=== PATIENT | female | born 1935 | race African-American/Black ===

== ENCOUNTER 2016-12-10 20:10 | Inpatient (IN) ==
[2016-12-10] MEDS ORDERED: SODIUM CHLORIDE 0.9% 1,000 ML IV STA (20:39)
[2016-12-10] MEDS ORDERED: VANCOMYCIN INJ 1,000 MG in SODIUM CHLORIDE 0.9% 250 ML IV STA (20:39)
[2016-12-10] MEDS ORDERED: INSULIN REGULAR 100 UNIT/ML IV STA (20:44)
[2016-12-10] MEDS ORDERED: INSULIN REGULAR 100 UNIT/ML SUBCUT STA (20:44)
[2016-12-10] MEDS ORDERED: SODIUM CHLORIDE 0.9% 2,000 ML IV STA (20:45)
[2016-12-10 20:52] LABS: Basophils % 0.2 % (0.0-0.8); Eosinophils % 0.2 % (0.00-10.9); Hematocrit 41.8 VOL% (35.7-47.0); Hemoglobin 13.9 GM/DL (12.0-16.0); Immature Granulocytes % 0.9 %; Immature Granulocytes Absolute 0.14 #; Lymphocytes # 1.2 10*3/uL (1.4-4.0); Lymphocytes % 7.5 % (21.3-54.2); Mean Corpuscular HGB Conc 33.3 GM/DL (32-36); Mean Corpuscular Hemoglobin 31 PG (27-34); Mean Corpuscular Volume 92.5 FL (87-102); Mean Platelet Volume 11.2 FL (9.6-12.0); Monocytes # 0.9 10*3/uL (0.11-0.8); Monocytes % 5.6 % (1.7-12.7); Neutrophils # 13.8 10*3/uL (1.4-7.4); Neutrophils % 85.6 % (38.7-73.9); Platelet Count 244 T/CUMM (130-400); Red Blood Count 4.52 MC/CUMM (3.8-5.5); Red Cell Distribution Width 13.6 % (9.3-17.3); White Blood Count 16.1 T/CUMM (4-12)
[2016-12-10] MEDS ORDERED: SODIUM CHLORIDE 0.9% 0 ML IV ONE (20:56)
[2016-12-10] MEDS ORDERED: VANCOMYCIN 1,000 MG VIAL ONE (20:56)
[2016-12-10 21:07] LABS: Calcium 9.5 MG/DL (8.5-10.1); Potassium 3.9 MMOL/L (3.5-5.1)
[2016-12-10] MEDS ORDERED: ONDANSETRON 4 MG/2 ML VIAL IV STA (21:10)
[2016-12-10] MEDS ORDERED: LEVOFLOXACIN INJ 750 MG in PREMIX 1 EACH IV STA (21:10)
[2016-12-10] MEDS ORDERED: KETOROLAC 30 MG/1 ML VIAL IV STA (21:10)
--- NOTE | 2016-12-10 21:16 | Emergency Department Note ---
Arrival - Arrival Chief Complaint: Fever Stated Complaint: fever ED Nursing Triage Note: Patient to ED via EMS with c/o fever and general malaise that "started at once" Patient has history of COMMERCIAL LEASING AGENT. Temp 101.8 upon arrival. Mode of Arrival: Stretcher Limitations: No Limitations Source: Patient Time Seen by Provider: 12/10/16 20:39 - History of Present Illness HPI Narrative: This 81-year-old black female presents approximately 2 hours after abrupt onset of chills, headache, nausea, chest pain, shortness of breath, and tremors while sitting on her front porch shucking corn. The patient had had an unremarkable day and had been very busy throughout her house today without any symptoms whatsoever. As of arrival here she still has some mild chest pain and nausea with the remainder of her symptoms having abated. However, also since arriving she has developed difficulties with motor strength in her right leg stating she cannot make it do what she wants it to. Patient is not medical distress currently but still appears quite sick and febrile at 101.8. Onset (ago): hour(s) (Patient presents approximately 2 hours post onset of symptoms) Date of Last Menstrual Period: [facility] Allergies/Adverse Reactions: Allergies Allergy/AdvReac Type Severity Reaction Status Date / Time Penicillins Allergy Unknown/Unable Verified 12/10/16 20:20 to obtain Review of System - Review of System 12 point system: reviewed and no additional remarkable complaints except as stated - Review of System Constitutional: Present: as per HPI Respiratory: Present: as per HPI Cardiovascular: Present: as per HPI Gastrointestinal: Present: as per HPI Musculoskeletal: Present: as per HPI Neurological: Present: as per HPI Medical,Surgical,& Family Hx - Medical History Cardio: History of: Hypertension Endocrine: History of: Diabetes Mellitus (NIDDM) Respiratory: History of: COPD - Social History Smoking Status: Never smoker Frequency of Alcohol Use: None Type of Drug Use: None Exam Physical Examination: GENERAL: Well developed, well nourished 81-year-old white female in no acute distress. HEENT: Normocephalic. No trauma. Moist mucous membranes. EOMI. PERRLA. Disconjugate gaze ENT NML NECK: Supple. No adenopathy. CARDIAC: Regular. No murmurs. Heart rate 120 CHEST: Clear to auscultation. No respiratory distress. O2 sat 98% ABDOMEN: Soft. Nontender. Active bowel sounds. EXTREMITIES: No trauma. Normal ROM. No pedal edema. SKIN: No diaphoresis. No rash. NEURO: Alert. Oriented 3. Motor, sensory, vibratory intact excepting for mild right lower extremity motor weakness compared to left no focal deficits. Vital Signs: Vital Signs Temperature 101.8 F H 12/10/16 20:15 Pulse Rate 125 H 12/10/16 20:15 Respiratory Rate 20 12/10/16 20:15 Blood Pressure 179/113 12/10/16 20:15 O2 Sat by Pulse Oximetry 98 12/10/16 20:15 Course - Reevaluation(s) Reevaluation #1: Advised patient the need for hospitalization for further evaluation treatment of her urinary tract infection and right lower extremity weakness. Results - Labs CBC & BMP: 12/10/16 20:24 12/10/16 21:10 Labs: I reviewed the laboratory noted the elevated white blood cell count and infected urine. - Impressions EKG: Sinus tachycardia at 102 with normal ME interval but moderate intraventricular conduction delay with left atrial enlargement and nonspecific ST changes. No acute injury pattern noted - Diagnostic Findings Procedure: Chest x-ray: image reviewed by me, report reviewed by me (Minor basilar scarring unchanged on interval comparison, no acute disease.) Disposition Clinical Impression: Cystitis, Right lower extremity weakness Case discussed with: patient Disposition: Still a Patient Condition: Stable Time of Disposition: 22:44
[2016-12-10] MEDS ORDERED: ONDANSETRON 4 MG/2 ML VIAL ONE (21:20)
[2016-12-10] MEDS ORDERED: LEVOFLOXACIN INJ 150 ML IV ONE (21:20)
[2016-12-10] MEDS ORDERED: KETOROLAC 30 MG/1 ML VIAL ONE (21:20)
[2016-12-10 21:24] LABS: PT Patient Result 10.9 SECS; Partial Thromboplastin Time 25.4 SECS (0-40)
--- NOTE | 2016-12-10 21:35 | EKG Report ---
Stationary ECG Study [facility] ER Test Date: 12/10/2016 9:36:06 PM Pat Name: DAVID LINK Department: Room: Gender: F Ruby Developer: : 1935 Requested by: Alber Chavez Order Number: [id number] Reading MD: ARNULFO BRYAN Intervals [place] Rate: 102 P: 68 MA: 152 QRS: 66 QRSD: 112 T: 68 QT: 338 QTc: 397 Interpretive Statements SINUS TACHYCARDIA POSSIBLE LEFT ATRIAL ENLARGEMENT MODERATE INTRAVENTRICULAR CONDUCTION DELAY NONSPECIFIC T-WAVE ABNORMALITY ABNORMAL RHYTHM ECG Electronically Signed On 12-11-16 09:27:28 CDT by ARNULFO BRYAN [email or web address]
[2016-12-10 21:54] LABS: Alanine Aminotransferase 18 U/L (13-56); Albumin 3.7 G/DL (3.4-5.0); Alkaline Phosphatase 96 U/L (45-117); Aspartate Amino Transferase 15 U/L (0-37); Blood Urea Nitrogen 11 MG/DL (7-18); Calcium 9.8 MG/DL (8.5-10.1); Glucose 121 MG/DL (74-106); Osmolality,Calculated 282.1 MOS/KG (273-304); Potassium 3.9 MMOL/L (3.5-5.1); Sodium 142 MMOL/L (136-145); Total Protein 7.7 G/DL (6.4-8.3); Troponin I Only < 0.015 NG/ML (0.00-0.045)
[2016-12-10 22:10] LABS: Apearance,Urine Slightly Hazy (Clear); Bacteria,Urine Many /HPF (Few); Bilirubin,Urine Negative (Negative); Blood, Urine Small mg/dL (Negative); Glucose,Urine (UA) Negative (Negative); Ketones,Urine 5 mg/dL (Negative); Mucus,Urine Occasional /LPF (Occasional); Nitrite,Urine Positive (Negative); Protein,Urine Negative; RBC,Urine 9 /HPF (0-4); Squamous Epithelial Cell,Urine Occasional /HPF (0-10); Urine Color Yellow (Yellow); Urine Urobilinogen < 2.0 EU/DL (0.2-1.0); WBC,Urine 94 /HPF (0-6)
[2016-12-10] MEDS ORDERED: MORPHINE 2 MG/1 ML SYRINGE IV PRN (22:52)
[2016-12-10] MEDS ORDERED: ACETAMINOPHEN 325 MG TABLET PO PRN (22:52)
[2016-12-10] MEDS ORDERED: PROMETHAZINE 25 MG/1 ML VIAL IM PRN (22:52)
[2016-12-10] MEDS ORDERED: ONDANSETRON 4 MG/2 ML VIAL IV PRN (22:52)
[2016-12-10] MEDS ORDERED: BISACODYL 5 MG TABLET PO PRN (22:52)
--- NOTE | 2016-12-10 22:54 | Hospitalist History & Physical ---
Assessment and Plan (1) Acute UTI Status: Acute Current Visit: Yes (2) Uncontrolled hypertension Status: Acute Current Visit: Yes (3) Type 2 diabetes mellitus Status: Acute Assessment and plan: Plan: Admit for IV antibiotics, check blood and urine cultures X-ray right tib-fib due to severe pain with palpation, supportive care with pain medication MRI of the brain in a.m. due to asymmetric weakness of the extremities, unclear how much this is acute versus chronic Sliding-scale insulin/Accu-Cheks Continue home medications once we have accurate list Current Visit: Yes Qualifiers: Diabetes mellitus complication status: with unspecified complications Diabetes mellitus termite control service representative insulin use: without termite control service representative use Qualified Code( s): E11.8 - Type 2 diabetes mellitus with unspecified complications History of Present Illness Chief complaint: Acute onset of fever and rigors this afternoon History of present illness: Ms. Pendleton is a 81 year old female with hypertension and type 2 diabetes who is here with acute onset of fever and rigors while shucking corn this afternoon. She states she was "feeling fine," prior to this when suddenly she began shaking and had to sit down at the table due to generalized weakness. She was found to have evidence of a UTI in the emergency room. She denies dysuria. She also denies chest pain or shortness of breath. Additionally she reports weakness of the right lower extremity and states it "feels very heavy." She also has tenderness to palpation of the right tib-fib. No overlying cellulitis is noted. She rates her pain a 6 out of 10 at worst. She states she has chronic left upper extremity weakness as well which has been going on for "3 years." She reports she started to have some weakness in the right upper extremity. CT of the brain in the ER was negative. She does have fever and elevated white count. Allergies Allergy/AdvReac Type Severity Reaction Status Date / Time Penicillins Allergy Unknown/Unable Verified 12/10/16 20:20 to obtain Medical,Surgical,& Family Hx - Medical History Cardio: History of: Hypertension Endocrine: History of: Diabetes Mellitus (NIDDM) Respiratory: History of: COPD (Quit smoking in ) - Surgical History Orthopedic Surgeries: Surgical HX of;: Orthopedic Surgery - Family History Family History: Reports;: Family Hypertension - Social History Smoking Status: Former smoker Have you smoked in the last 12 months: No Frequency of Alcohol Use: None Type of Drug Use: None Marital Status: Unknown Functional capacity: uses cane/walker Review of systems: A 12 point review of systems is negative except as specified in the HPI Exam - Constitutional Vitals: Period Temp Pulse Resp BP Sys/Porras Pulse Ox Last 24 Hr 101.8 F-101.8 F 122-125 20-20 179-179/113-113 98 Exam: EXAM: CONSTITUTIONAL: Obese, non toxic, NAD HEENT: NC, AT, OP benign, JACK, EOMI CV: RRR no m/g/r RESP: clear B/L, no w/r/r GI: abd soft, NT, ND, +bowel sounds INTEGUMENTARY: no lesions or rash EXTREMITIES: No swelling of the lower extremities, + tenderness to palpation of the right tib-fib, no overlying cellulitis NEURO: 2-3 out of 5 strength right lower extremity, 4 out of 5 left lower extremity; 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
[2016-12-10] MEDS ORDERED: DEXTROSE 50% 25 GM/50 ML VIAL IV PRN (23:07)
[2016-12-10] MEDS ORDERED: GLUCAGON 1 MG VIAL IM PRN (23:07)
[2016-12-11] MEDS: SODIUM CHLORIDE 0.9% 1,000 ML IV SCH ×3 (00:29→18:44)
[2016-12-11] MEDS: CEFEPIME 1,000 MG in SODIUM CHLORIDE 0.9% 100 ML IV SCH ×3 (00:29→20:55)
[2016-12-11] MEDS: ENOXAPARIN 40 MG/0.4 ML SYRINGE SUBCUT SCH ×2 (00:30→20:54)
[2016-12-11 07:02] LABS: Basophils % 0.3 % (0.0-0.8); Eosinophils % 0.2 % (0.00-10.9); Hematocrit 35.3 VOL% (35.7-47.0); Immature Granulocytes % 0.6 %; Immature Granulocytes Absolute 0.05 #; Lymphocytes # 1.5 10*3/uL (1.4-4.0); Lymphocytes % 16.2 % (21.3-54.2); Mean Corpuscular HGB Conc 32.9 GM/DL (32-36); Mean Corpuscular Hemoglobin 31 PG (27-34); Mean Corpuscular Volume 93.6 FL (87-102); Mean Platelet Volume 11.3 FL (9.6-12.0); Monocytes # 1.1 10*3/uL (0.11-0.8); Monocytes % 12.2 % (1.7-12.7); Neutrophils # 6.3 10*3/uL (1.4-7.4); Neutrophils % 70.5 % (38.7-73.9); Platelet Count 227 T/CUMM (130-400); Red Blood Count 3.77 MC/CUMM (3.8-5.5); Red Cell Distribution Width 13.7 % (9.3-17.3)
--- NOTE | 2016-12-11 07:05 | XRay Report ---
Exam: XR chest 1V portable Date: 12/10/2016 8:41 PM Indication: Shortness of breath fever Comparison: 11/05/2013 Technical: AP portable Findings: Mild cardiac enlargement present. Interstitial thickening present in the basilar regions with mild shunt vascularity. No obvious consolidation present. ASVD is present. Mediastinum is intact. Bony structures reveal no acute findings with lateral marginal osteophytes. Impression: 1. Mild interstitial edema and tiny effusions that could represent minimal early congestion CHF no consolidating infiltrate present at this time PROCEDURE INTERPRETED AT [facility] DEPARTMENT OF RADIOLOGY Final Report Signed by: Dr. Con Garnett
--- NOTE | 2016-12-11 07:14 | CT Report ---
CT head/brain wo con INDICATION: Altered mental status/confusion The total DLP is 970 mGy*cm. COMPARISON: Noncontrast CT head dated 11/05/2013 Technique: Serial axial tomographic images of the brain were obtained without the use of intravenous contrast. Dose reduction: This CT exam was performed using one or more of the following dose reduction techniques: Automated exposure control, automated adjustment of the mA and/or KV according to patient size, or use of iterative reconstruction technique. Findings: Mild generalized atrophy is noted with mild prominence of the sulci and cortical volume loss. Periventricular white matter hypodensity changes are noted bilaterally which do not demonstrate mass effect and are nonspecific but favored to represent sequela of chronic microvascular ischemia. There is no evidence of vascular territory infarct or acute intracranial hemorrhage. The rossi-white matter differentiation is generally maintained. There is no hydrocephalus. The basilar cisterns are patent. The visualized paranasal sinuses, mastoid air cells and middle ear cavities are predominantly clear. The included orbits and their contents appear within normal limits. The visualized osseous structures and overlying soft tissues of the skull and face demonstrate no acute abnormality. IMPRESSION: No acute intracranial abnormality. Generalized mild atrophy and sequela of chronic microvascular ischemia which appears minimally progressed from prior study. Preliminary report by virtual radiologic. PROCEDURE INTERPRETED AT [facility] DEPARTMENT OF RADIOLOGY Final Report Signed by: Aubrey Jorgensen
--- NOTE | 2016-12-11 07:15 | XRay Report ---
Exam: XR tibia fibula RT Date: 12/10/2016 11:51 PM Indication: Pain, weakness Comparison: Previous knee 12/27/2009 Technical: AP lateral Findings: Total knee prosthesis is present. The cortical margins of the tibia and fibula are intact. The joint ankle is intact. Mild soft tissue swelling at the ankle. Vascular plaque is present. Impression: 1. No fracture dislocation 2. Previous right total knee prosthesis 3. Minimal soft tissue swelling at the ankle without obvious fracture 4. Vascular calcinosis PROCEDURE INTERPRETED AT [facility] DEPARTMENT OF RADIOLOGY Final Report Signed by: Dr. Con Garnett
[2016-12-11 07:23] LABS: Hemoglobin 11.6 GM/DL (12.0-16.0)
[2016-12-11 07:30] LABS: Albumin 2.7 G/DL (3.4-5.0); Bilirubin,Total 0.7 MG/DL (0.2-1.0); Calcium 8.6 MG/DL (8.5-10.1); Magnesium 1.8 MG/DL (1.8-2.4); Osmolality,Calculated 284.8 MOS/KG (273-304); Potassium 3.7 MMOL/L (3.5-5.1)
--- NOTE | 2016-12-11 10:26 | Magnetic Resonance Report ---
Exam: MR head/brain wo con Date: 12/11/2016 4:00 AM Comparison: CT brain 11/05/2013 and 12/10/2016 Indication: Right lower extremity left upper extremity weakness Technical: 1.5 Marleni magnet Axial T1 pre-and postcontrast, ADC, DWI, FLAIR, gradient echo and FSE T2 Sagittal T1 precontrast, Coronal FSE T2 Contrast: None cc Dotarem Findings: Exam reveals no acute ADC/ diffusion imaging abnormality. The brainstem, cerebellum exhibit normal signal characteristics. The cerebral hemispheres exhibit small vessel changes are present in the periventricular and subcortical white matter regions best seen on the FLAIR images. No other abnormal signal characteristics. The corpus callosum is demonstrated with slight thinning with minimal atrophic changes present. The seventh and eighth cranial nerves and cerebral pontine angles are intact. The pituitary gland, infundibulum and optic chiasm are intact. The paranasal sinuses exhibit minimal fluid in the posterior left ethmoid air cells. The remaining paranasal sinuses demonstrate normal signal characteristics. The mastoid sinuses are unremarkable. The globes and intra-and extraconal spaces are unremarkable. Impression: 1. No acute hemorrhage infarction or mass effect 2. Small vessel ischemic changes and component of atrophy 3. Minimal left ethmoid sinusitis PROCEDURE INTERPRETED AT [facility] DEPARTMENT OF RADIOLOGY Final Report Signed by: Dr. Con Garnett
[2016-12-11] MEDS: PANTOPRAZOLE 40 MG TABLET PO SCH (10:34)
[2016-12-11] MEDS: INSULIN REGULAR 100 UNIT/ML SUBCUT SCH ×4 (10:35→22:11)
--- NOTE | 2016-12-11 11:59 | Hospitalist Progress Note ---
Assessment and Plan (1) Weakness Status: Acute Assessment and plan: MRI without acute process PT/OT Current Visit: Yes (2) Acute UTI Status: Acute Assessment and plan: Continue cefepime F/u urine culture Current Visit: Yes Hospitalist: Subjective Interval history: No acute events overnight. Patient reports that she feels a little better this morning. Exam - Constitutional Vitals: Period Temp Pulse Resp BP Sys/Porras Pulse Ox Last 24 Hr 97.0 F-101.8 F 62-125 18-20 140-179/66-113 98-100 General appearance: over weight - Head Head exam: Present: normocephalic, atraumatic - Eye Eye exam: Present: EOMI Pupils: Present: JACK - ENT ENT exam: Present: normal exam - Neck Neck exam: Present: normal inspection - Respiratory Respiratory exam: Present: clear to auscultation bilaterally. Absent: wheezes - Cardiovascular Cardiovascular exam: Present: regular rate and rhythm - GI/Abdominal GI/Abdominal exam: Present: normal bowel sounds, soft. Absent: tenderness, rebound - Extremities Exam Extremities exam: Present: normal inspection - Back Exam Back exam: Present: normal inspection - Neurological Exam Neurological exam: Present: alert, oriented X3 - Psychiatric Psychiatric exam: Present: normal affect, normal mood - Skin Skin exam: Present: warm, intact Results - Labs CBC & BMP: 12/11/16 06:34 12/11/16 06:34 Quality Measures - Stroke Symptom Onset Unknown: No
[2016-12-12] MEDS: SODIUM CHLORIDE 0.9% 1,000 ML IV SCH ×3 (00:08→21:15)
[2016-12-12 07:40] LABS: Calcium 8.6 MG/DL (8.5-10.1); Magnesium 1.9 MG/DL (1.8-2.4)
[2016-12-12 07:55] LABS: Basophils % 0.5 % (0.0-0.8); Eosinophils # 0.1 10*3/uL (0.0-0.87); Eosinophils % 1.8 % (0.00-10.9); Hemoglobin 11.5 GM/DL (12.0-16.0); Immature Granulocytes % 0.3 %; Immature Granulocytes Absolute 0.02 #; Lymphocytes # 1.6 10*3/uL (1.4-4.0); Lymphocytes % 26.9 % (21.3-54.2); Mean Corpuscular HGB Conc 32.9 GM/DL (32-36); Mean Corpuscular Hemoglobin 31 PG (27-34); Mean Corpuscular Volume 93.8 FL (87-102); Mean Platelet Volume 11.2 FL (9.6-12.0); Monocytes # 1.1 10*3/uL (0.11-0.8); Monocytes % 18.9 % (1.7-12.7); Neutrophils # 3.1 10*3/uL (1.4-7.4); Neutrophils % 51.6 % (38.7-73.9); Platelet Count 203 T/CUMM (130-400); Red Blood Count 3.73 MC/CUMM (3.8-5.5); Red Cell Distribution Width 13.7 % (9.3-17.3)
[2016-12-12 08:39] LABS: Eosinophils 1 % (0-10); Hypochromasia 1+; Lymphocytes 33 % (20-55); Segmented Neutrophils 54 % (50-85); Total Cells Counted 100
[2016-12-12 08:40] LABS: Microcytosis 1+
[2016-12-12 08:41] LABS: Platelet Estimate Normal
[2016-12-12] MEDS: PANTOPRAZOLE 40 MG TABLET PO SCH (09:19)
[2016-12-12] MEDS: CEFEPIME 1,000 MG in SODIUM CHLORIDE 0.9% 100 ML IV SCH ×2 (09:20→21:14)
[2016-12-12] MEDS: INSULIN REGULAR 100 UNIT/ML SUBCUT SCH ×4 (09:24→21:16)
--- NOTE | 2016-12-12 11:10 | Physician Query Form ---
CLICK EDIT DOCUMENT TO SELECT QUERY ANSWER --> OK --> SIGN PROVIDERS: Make your selection(s) from the choices in EACH section by typing an "x" and enter comments in the comment section. Please use your independent medical judgment in providing your response. This request does not imply that any particular answer is desired or expected. CLINICAL INDICATORS: (Providers should not edit this section) Based on documentation of "Acute UTI" "Acute weakness" "right lower extremity weakness" Negative xray of tibia and fibula. MRI negative for acute hemorrhage or infarct. WBC of 16.1. Temp of 101.8. Treated with IV Vancomycin, NS bolus, IV Levaquin, IV Maxipime. ACUITY: (x ) Acute ( ) Acute on Chronic ( ) Chronic ( ) Clinically unable to determine NATURE: ( ) Delirium due to general medical condition ( ) Dementia ( ) Encephalopathy ( ) Unconscious ( ) Comatose ( ) Locked-in State ( ) Persistent Vegetative State ( ) Other, please specify: not altered ( ) Clinically unable to determine Please indicate the underlying cause of the altered mental status (CHECK ALL THAT APPLY): ( ) Baseline dementia ( ) Alzheimer's disease ( ) Parkinson's disease ( ) Lewy body dementia ( ) Acute stroke ( ) Late effect of stroke ( ) Reactive (from emotional stress, psychological trauma) ( ) Due to narcotics/other drugs ( ) Post procedural delirium ( ) Transient ischemic attack ( ) Generalized cerebral edema ( ) Normal pressure hydrocephalus ( ) Psychiatric illness ( ) Other, please specify: ( ) Clinically unable to determine Please indicate if there is an infection, sepsis, dehydration or specific organ failure that is causing the dementia. Be specific with clarifying the relationship between that process and the mental status change. COMMENTS: PLEASE ALSO DOCUMENT RESPONSE IN PROGRESS NOTES AND/OR DISCHARGE SUMMARY Use of terms such as suspected, likely, or probable (associated with a specific diagnosis that is being evaluated, monitored, or treated as if it exists) are acceptable and can be restated in the discharge summary if not ruled out. MTDD
--- NOTE | 2016-12-12 14:20 | Hospitalist Progress Note ---
Assessment and Plan (1) Weakness Status: Acute Assessment and plan: MRI without acute process PT/OT Current Visit: Yes (2) Acute UTI Status: Acute Assessment and plan: Continue cefepime F/u urine culture, so far with gram negative rods Current Visit: Yes (3) Uncontrolled hypertension Status: Acute Assessment and plan: Restarting home medications Current Visit: Yes Hospitalist: Subjective Interval history: No acute events overnight. Patient feeling a little better. Exam - Constitutional Vitals: Period Temp Pulse Resp BP Sys/Porras Pulse Ox Last 24 Hr 97.1 F-98.5 F 66-74 18-22 137-179/52-78 95-100 General appearance: over weight - Head Head exam: Present: normocephalic, atraumatic - Eye Eye exam: Present: EOMI Pupils: Present: JACK - ENT ENT exam: Present: normal exam - Neck Neck exam: Present: normal inspection - Respiratory Respiratory exam: Present: clear to auscultation bilaterally - Cardiovascular Cardiovascular exam: Present: regular rate and rhythm - GI/Abdominal GI/Abdominal exam: Present: normal bowel sounds, soft. Absent: tenderness, rebound - Extremities Exam Extremities exam: Present: normal inspection - Back Exam Back exam: Present: normal inspection - Neurological Exam Neurological exam: Present: alert, oriented X3 - Psychiatric Psychiatric exam: Present: normal affect, normal mood - Skin Skin exam: Present: warm, intact Results - Labs CBC & BMP: 12/12/16 07:37 12/12/16 05:43 Quality Measures - Stroke Symptom Onset Unknown: No
[2016-12-12] MEDS: hydroCHLOROthiazide 25 MG TABLET PO SCH (15:29)
[2016-12-12] MEDS: GABAPENTIN 300 MG CAPSULE PO SCH ×2 (15:29→21:15)
[2016-12-12] MEDS: amLODIPine 10 MG TABLET PO SCH (15:29)
[2016-12-12] MEDS: ENOXAPARIN 40 MG/0.4 ML SYRINGE SUBCUT SCH (21:15)
[2016-12-13] MEDS: amLODIPine 10 MG TABLET PO SCH (08:38)
[2016-12-13] MEDS: hydroCHLOROthiazide 25 MG TABLET PO SCH (08:38)
[2016-12-13] MEDS: GABAPENTIN 300 MG CAPSULE PO SCH (08:38)
[2016-12-13] MEDS: PANTOPRAZOLE 40 MG TABLET PO SCH (08:38)
[2016-12-13] MEDS ORDERED: CIPROFLOXACIN 500 MG TABLET PO SCH (09:00)
[2016-12-13] MEDS: INSULIN REGULAR 100 UNIT/ML SUBCUT SCH ×2 (09:29→12:58)
--- NOTE | 2016-12-13 09:30 | Physician Query Form ---
CLICK EDIT DOCUMENT TO SELECT QUERY ANSWER --> OK --> SIGN Teri Marshall RN Clinical Propeller Tester W) [phone] (f) [phone] [email or web address] PROVIDERS: Make your selection(s) from the choices in EACH section by typing an "x" and enter comments in the comment section. Please use your independent medical judgment in providing your response. This request does not imply that any particular answer is desired or expected. CLINICAL INDICATORS: (Providers should not edit this section) Based on documentation o f "Acute UTI" "Acute weakness" "Right lower extremity weakness" MRI negative for acute hemorrhage or infarct. WBC of 16.1. Temp of 101.8. Treated with IV Vancomycin, NS bolus, IV Levaquin, IV Maxipime. ACUITY: ( ) Acute ( ) Acute on Chronic ( ) Chronic ( ) Clinically unable to determine NATURE: ( ) Delirium due to general medical condition ( ) Dementia ( ) Encephalopathy ( ) Unconscious ( ) Transient level of awareness ( ) Comatose ( ) Locked-in State ( ) Persistent Vegetative State ( ) Other, please specify: ( ) Clinically unable to determine Please indicate the underlying cause of the altered mental status (CHECK ALL THAT APPLY): ( ) Baseline dementia ( ) Alzheimer's disease ( ) Parkinson's disease ( ) Lewy body dementia ( ) Acute stroke ( ) Late effect of stroke ( ) Reactive (from emotional stress, psychological trauma) ( ) Due to narcotics/other drugs ( ) Post procedural delirium ( ) Transient ischemic attack ( ) Generalized cerebral edema ( ) Normal pressure hydrocephalus ( ) Psychiatric illness ( ) Other, please specify: ( ) Clinically unable to determine Please indicate if there is an infection, sepsis, dehydration or specific organ failure that is causing the dementia. Be specific with clarifying the relationship between that process and the mental status change. COMMENTS: Patient does not have acute mental status or change in mentation. This does not apply to her. PLEASE ALSO DOCUMENT RESPONSE IN PROGRESS NOTES AND/OR DISCHARGE SUMMARY Use of terms such as suspected, likely, or probable (associated with a specific diagnosis that is being evaluated, monitored, or treated as if it exists) are acceptable and can be restated in the discharge summary if not ruled out. MTDD
--- NOTE | 2016-12-13 11:31 | Discharge Summary ---
Hospital Course - Hospital Course Hospital Course: Ms. Pendleton is a 81 year old female with hypertension and type 2 diabetes who is here with acute onset of fever and rigors while shucking corn the morning of admission. She stated she was "feeling fine," prior to this when suddenly she began shaking and had to sit down at the table due to generalized weakness. Additionally she reported weakness of the right lower extremity and stated it "feels very heavy." She stated she has chronic left upper extremity weakness as well which had been going on for "3 years." She reported she started to have some weakness in the right upper extremity. CT of the brain in the ER was negative. She does have fever and elevated white count. She was admitted to the hospitalist service for urinary tract infection and weakness. She was started on cefepime. MRI was obtained due to weakness, which did not show an acute process. Urine culture grew E.coli. Antibiotics changed to ciprofloxacin. She has done well working with physical therapy. She has now reached maximal benefit of inpatient stay and will be discharged to home. - Time spent with patient Time with patient DS: Less than 30 minutes (25) Diagnosis - Discharge Diagnosis (1) Weakness Status: Chronic (2) Acute UTI Status: Resolved (3) Uncontrolled hypertension Status: Chronic Discharge Plan - Discharge Data Condition at Discharge: Stable Discharge Diet: advance to your usual diet Activity: increase activity as tolerated Hygiene: no restrictions Weight Bearing at Discharge: weight bear as tolerated Contact your physician if you experience:: fever over 101 - Discharge Medications New Ciprofloxacin Tab [Cipro Tab] 500 mg PO Q12HR #10 tablet Continue glipiZIDE [Glipizide] 5 mg PO DAILY Gabapentin Cap/Tab [Neurontin Cap/Tab] 300 mg PO BID metFORMIN [Glucophage] 1,000 mg PO BID W/MEALS amLODIPine [Norvasc] 10 mg PO DAILY Meloxicam [Mobic] 7.5 mg PO DAILY hydroCHLOROthiazide [Hydrochlorothiazide] 25 mg PO DAILY Hydrocodone/Acetaminophen [[place] 10-325 Tablet] 1 each PO Q6HR PRN PRN Reason: pain - Follow Up or Referral - Forms/Instructions Exam - Constitutional Vitals: Period Temp Pulse Resp BP Sys/Porras Pulse Ox Last 24 Hr 97.6 F-98.7 F 69-90 18-20 134-179/67-83 92-98 General appearance: over weight - Head Head exam: Present: normocephalic, atraumatic - Eye Eye exam: Present: EOMI Pupils: Present: AJCK - ENT ENT exam: Present: normal exam - Neck Neck exam: Present: normal inspection - Respiratory Respiratory exam: Present: clear to auscultation bilaterally - Cardiovascular Cardiovascular exam: Present: regular rate and rhythm - GI/Abdominal GI/Abdominal exam: Present: normal bowel sounds, soft - Extremities Exam Extremities exam: Present: normal inspection - Back Exam Back exam: Present: normal inspection - Neurological Exam Neurological exam: Present: alert, oriented X3 - Psychiatric Psychiatric exam: Present: normal affect, normal mood - Skin Skin exam: Present: warm, intact Discharge Results Procedures and tests throughout hospitalization: Pending Orders 12/10/16 21:35 Blood Culture Stat Labs on day of discharge: Labs from last 24 hours 12/13/16 12/12/16 12/12/16 08:16 21:00 16:09 POC Glucose 117 H 140 H 155 H 12/12/16 11:31 POC Glucose 108 H Preliminary micro results at discharge 12/10/16 21:35 Blood Culture - Preliminary Blood No growth at 1 day 12/10/16 22:13 Blood Culture - Preliminary Blood No growth at 1 day DS: Provider Date of admission: 12/10/16 22:52 Primary care physician: . No PCP Attending physician on admission: Xavi Marley DO Consults: 12/11/16 00:10 Consult to Dietitian [CONS] Routine Reason for Dietitian: Other Consult Comment: admission assessment 12/11/16 11:52 Consult to Occupational Therapy [CONS] Routine Reason for Occupational Therapy: Evaluate and Treat Consult to Physical Therapy [CONS] Routine Reason for Physical Therapy: Evaluate and Treat Discharging clinician: Maxi Cody MD
[2016-12-13 12:12] VITALS: BP 170/75
== END 2016-12-13 14:03 | disposition home or self-care (01) | DRG 690 ==
LOC: EDUNIT# → EDBD → N.ED 20:10 → N.EDINP 22:52 → SUATTDRO 22:52 → N.2E 23:19
PROVIDERS: ADMIT Internal Medicine; ATTEND Internal Medicine

== ENCOUNTER 2017-01-19 10:42 | Inpatient (IN) ==
[2017-01-19] MEDS ORDERED: ONDANSETRON 4 MG/2 ML VIAL IV STA ×2 (11:06→14:16)
[2017-01-19] MEDS ORDERED: METOCLOPRAMIDE 10 MG/2 ML VIAL IV STA (11:06)
[2017-01-19] MEDS ORDERED: PANTOPRAZOLE 40 MG VIAL IV STA (11:06)
--- NOTE | 2017-01-19 11:11 | Emergency Department Note ---
Arrival - Arrival Chief Complaint: Chest Pain Stated Complaint: chest pain ED Nursing Triage Note: pain in epigastric area that radiates up into chest anddown into abdomen that started yesterday afternoon. pt reports nausea with the pain Mode of Arrival: Wheelchair Limitations: No Limitations Source: Patient Time Seen by Provider: 01/19/17 11:06 - History of Present Illness HPI Narrative: This 81-year-old black female presents with a history of abrupt onset at 4 PM yesterday of generalized abdominal pain and chest pain not associated with shortness of breath, diaphoresis, or vomiting that has been sustained until this point in time. The patient has had some low-grade nausea that has been continuous but no active vomiting, chills, fever, or diarrhea. She denies any history of peptic ulcer disease, reflux disease, pancreatitis, inflammatory bowel disease, or prior GI problems. Currently although uncomfortable she is medically stable. Onset (ago): hour(s) (Patient presents 18 hours post onset of symptoms) Allergies/Adverse Reactions: Allergies Allergy/AdvReac Type Severity Reaction Status Date / Time Penicillins Allergy Unknown/Unable Verified 12/10/16 20:20 to obtain Home Medications: Home Medications Medication Instructions Recorded Confirmed Type Gabapentin Cap/Tab [Neurontin 300 mg PO BID 12/11/16 12/11/16 History Cap/Tab] Hydrocodone/Acetaminophen [[place] 1 each PO Q6HR PRN 12/11/16 12/11/16 History 10-325 Tablet] Meloxicam [Mobic] 7.5 mg PO DAILY 12/11/16 12/11/16 History amLODIPine [Norvasc] 10 mg PO DAILY 12/11/16 12/11/16 History glipiZIDE [Glipizide] 5 mg PO DAILY 12/11/16 12/11/16 History hydroCHLOROthiazide 25 mg PO DAILY 12/11/16 12/11/16 History [Hydrochlorothiazide] metFORMIN [Glucophage] 1,000 mg PO BID W/MEALS 12/11/16 12/11/16 History Ciprofloxacin Tab [Cipro Tab] 500 mg PO Q12HR #10 tablet 12/13/16 Rx Review of System - Review of System 12 point system: reviewed and no additional remarkable complaints except as stated - Review of System Constitutional: Present: as per HPI Respiratory: Present: as per HPI Cardiovascular: Present: as per HPI Gastrointestinal: Present: as per HPI Medical,Surgical,& Family Hx - Medical History Cardio: History of: [place] (1972) HEENT: History of: Eye Problem Respiratory: History of: Asthma, Bronchitis, COPD (Quit smoking in ) Genitourinary: History of: Kidney Stones (40 years ago small), Recurring Urinary Tract Infections - Surgical History Thoracic Surgeries: Patient denies;: Organ Transplant HEENT Surgeries: Surgical HX of: Eye Surgery (implant right eye surgery to remove blood clot 3 weeks ago) Patient denies: Thyroid Surgery Abdominal Surgeries: Patient denies: Appendectomy, Cholecystectomy Reproductive Surgeries: Surgical HX of;: Hysterectomy Orthopedic Surgeries: Surgical HX of;: Orthopedic Surgery, Spinal Surgery ( 3years ago), Total Knee Replacement (right) - Family History Family History: Reports;: Family Cancer, Family Diabetes, Family Hypertension - Social History Smoking Status: Former smoker Exam Physical Examination: GENERAL: Well developed, well nourished elderly black female in no acute distress. HEENT: Normocephalic. No trauma. Moist mucous membranes. EOMI. PERRLA. ENT NML NECK: Supple. No adenopathy. CARDIAC: Regular. No murmurs. Heart rate 96 CHEST: Clear to auscultation. No respiratory distress. O2 sat 96% ABDOMEN: Soft. Generalized tenderness of the entire abdomen. Hypoactive bowel sounds. EXTREMITIES: No trauma. Normal ROM. No pedal edema. SKIN: No diaphoresis. No rash. NEURO: Alert. Neuro intact. No focal deficits. Vital Signs: Vital Signs Temperature 98.2 F 01/19/17 10:44 Pulse Rate 85 01/19/17 16:30 Respiratory Rate 16 01/19/17 16:30 Blood Pressure 162/97 01/19/17 16:30 O2 Sat by Pulse Oximetry 96 01/19/17 16:30 Course - Reevaluation(s) Reevaluation #1: Discussed with patient the need for hospitalization given her probable small bowel obstruction. - Consultations Consultation #1: Discussed with Dr. Crisostomo who advised admission the hospitalist service given her multiple medical problems and he was seen in consultation. Consultation #2: Discussed with hospitalist service who went for further evaluation treatment. Results - Labs CBC & BMP: 01/19/17 11:14 01/19/17 11:14 Labs: I have reviewed the laboratory and noted the significant bump in lactic acid but otherwise negative results. - Diagnostic Findings Procedure: Abdominal x-ray: image reviewed by me, report reviewed by me ( Constipation but some small bowel abnormalities), CT Abdomen and Pelvis: image reviewed by me, report reviewed by me (Evidence of partial early small bowel obstruction with transition point in the right lower quadrant with incidental findings of hiatal hernia and fatty liver) Disposition Clinical Impression: Partial/early small bowel obstruction, Hypertension, Diabetes Case discussed with: patient Disposition: Still a Patient Condition: Guarded Time of Disposition: 16:41
[2017-01-19] MEDS ORDERED: ONDANSETRON 4 MG/2 ML VIAL ONE ×2 (11:21→14:10)
[2017-01-19] MEDS ORDERED: METOCLOPRAMIDE 10 MG/2 ML VIAL ONE (11:21)
[2017-01-19] MEDS ORDERED: PANTOPRAZOLE 40 MG VIAL IV ONE (11:21)
[2017-01-19 11:24] LABS: Basophils % 0.3 % (0.0-0.8); Eosinophils # 0.1 10*3/uL (0.0-0.87); Eosinophils % 1.2 % (0.00-10.9); Hematocrit 40.1 VOL% (35.7-47.0); Hemoglobin 13.1 GM/DL (12.0-16.0); Immature Granulocytes % 0.3 %; Immature Granulocytes Absolute 0.02 #; Lymphocytes # 1.1 10*3/uL (1.4-4.0); Lymphocytes % 17.2 % (21.3-54.2); Mean Corpuscular HGB Conc 32.7 GM/DL (32-36); Mean Corpuscular Hemoglobin 31 PG (27-34); Mean Corpuscular Volume 93.5 FL (87-102); Mean Platelet Volume 10.7 FL (9.6-12.0); Monocytes # 0.5 10*3/uL (0.11-0.8); Monocytes % 7.9 % (1.7-12.7); Neutrophils # 4.8 10*3/uL (1.4-7.4); Neutrophils % 73.1 % (38.7-73.9); Platelet Count 254 T/CUMM (130-400); Red Blood Count 4.29 MC/CUMM (3.8-5.5); Red Cell Distribution Width 13.5 % (9.3-17.3); White Blood Count 6.6 T/CUMM (4-12)
[2017-01-19 11:37] LABS: PT Patient Result 10.8 SECS; Partial Thromboplastin Time 30.7 SECS (0-40)
--- NOTE | 2017-01-19 11:44 | XRay Report ---
XR chest 2V Indication: Chest pain. Chest 2 views: Comparison 12/10/2016. Heart size remains normal. Mediastinal contours stable. No infiltrates. Pleural spaces are clear. No bone lesions. Impression: No acute cardiopulmonary disease. PROCEDURE INTERPRETED AT [facility] DEPARTMENT OF RADIOLOGY Final Report Signed by: Justice Zelaya M.D.
[2017-01-19 11:50] LABS: Alanine Aminotransferase 25 U/L (13-56); Albumin 3.2 G/DL (3.4-5.0); Alkaline Phosphatase 91 U/L (45-117); Aspartate Amino Transferase 17 U/L (0-37); Blood Urea Nitrogen 8 MG/DL (7-18); Calcium 9.1 MG/DL (8.5-10.1); Glucose 196 MG/DL (74-106); Osmolality,Calculated 279.5 MOS/KG (273-304); Potassium 4.4 MMOL/L (3.5-5.1); Sodium 139 MMOL/L (136-145); Total Protein 6.8 G/DL (6.4-8.3); Troponin I Only < 0.015 NG/ML (0.00-0.045)
[2017-01-19 12:06] LABS: Lactic Acid 2.8 MMOL/L (0.4-2.0)
--- NOTE | 2017-01-19 12:40 | XRay Report ---
XR abdomen 2V Indication: Pain. Abdomen 3 views: There are couple of scattered air-fluid levels present but no small bowel dilatation shown. Increased stool in the ascending colon is noted as well. Remainder of the colon is decompressed. Surgical sutures right lower quadrant noted. No free air. Impression: Primarily constipation of the ascending colon. Underlying ileus with scattered air-fluid levels noted as well. PROCEDURE INTERPRETED AT [facility] DEPARTMENT OF RADIOLOGY Final Report Signed by: Justice Zelaya M.D.
--- NOTE | 2017-01-19 15:51 | CT Report ---
CT abdomen pelvis w con Indication: Abdominal pain. CT ABDOMEN AND PELVIS WITH CONTRAST DLP: 1482 mGy*cm. One or more of the following dose reduction techniques was used: Automated exposure control, adjustment of the mA and/or kV according the patient size, or use of iterative reconstruction techniques. Comparison: None Technique: Axial CT images of the abdomen and pelvis were obtained with IV contrast; Omnipaque 350, 100 cc. Oral contrast was administered. Abdomen: Normal heart size. Moderate hiatal hernia. Bibasilar atelectasis or scarring. Mild fatty infiltration of liver and moderate obesity noted. No liver mass. Gallbladder, spleen, pancreas, adrenal glands and kidneys are unremarkable. Stool and gas is present throughout colon, mostly in the proximal portions. Small bowel dilatation is present, bowel measuring upwards of 40 mm diameter. Oral contrast transit to the mid small bowel, within dilated segments. Scattered air-fluid levels are noted. Transition point the right lower quadrant is noted just anterior of the right iliac artery. Calcified atheromatous disease is moderately severe. No aneurysm. Pelvis: Urinary bladder is relatively contracted. Rectosigmoid colon shows scattered diverticula without diverticulosis. Sigmoid colon is decompressed. Uterus is absent. Atheromatous disease noted. Normal-sized appendix without inflammation. Impression: 1. Early or partial small bowel obstruction with dilated upstream small bowel, with the transition point right lower quadrant just anterior to the right common iliac artery. There is still stool and gas in the downstream colon. No pneumatosis or perforation evident. 2. Hiatal hernia. 3. Obesity and fatty infiltration of the liver. PROCEDURE INTERPRETED AT [facility] DEPARTMENT OF RADIOLOGY Final Report Signed by: Justice Zelaya M.D.
[2017-01-19] MEDS ORDERED: SODIUM CHLORIDE 0.9% 1,000 ML IV STA (16:06)
[2017-01-19] MEDS ORDERED: MAGNESIUM SULF RIDER 2 GM in PREMIX 1 EACH IV PRN (16:28)
[2017-01-19] MEDS ORDERED: MAGNESIUM SULF RIDER 4 GM in PREMIX 1 EACH IV PRN (16:28)
--- NOTE | 2017-01-19 16:49 | Hospitalist History & Physical ---
Assessment and Plan (1) Small bowel obstruction, partial Status: Acute Assessment and plan: Abdominal x-ray reported primarily constipation of the ascending colon and underlying ileus with scattered air fluid levels noted. CT abdomen and pelvis with contrast reported early or partial small bowel obstruction with dilated upstream small bowel with a transition point right lower quadrant just anterior to the right common iliac artery. The presence of stool and gas was noted in the downstream colon however no pneumatosis or perforation was evident. In addition, fatty infiltration of the liver, and hiatal hernia was noted. The patient was seen and evaluated during the ED encounter by Dr. Crisostomo. At the time of assessment, the ED staff was inserting nasogastric tube. We will continue gastric decompression via nasogastric tube with low intermittent suction. We will gently rehydrate, maintain n.p.o. status, start Accu-Cheks with sliding scale coverage, anti-emetics, start PPIs, DVT prophylactics, and pain management. We will monitor the patient closely during the clinical encounter. Current Visit: Yes History of Present Illness Chief complaint: Epigastric History of present illness: This is a pleasant 81-year-old female that presented to the ED at [facility] this afternoon for the evaluation of epigastric pain. Patient has a medical history significant for diabetic neuropathy, arthritis, hypertension, [id number] diabetes mellitus, asthma, bronchitis, recurrent urinary tract infections, myocardial infarction,and chronic obstructive pulmonary disease. Patient has a surgical history of hysterectomy, right total knee replacement, right eye surgery, and cervical discectomy. Patient reported the onset of symptoms on yesterday around 4 PM. She reported at acute onset of epigastric and abdominal discomfort. She reported episodes of nausea and diarrhea however, denied vomiting, shortness of breath, fever, diaphoresis, and syncope. Her symptoms became unbearable prompting her to present to the ED for further evaluation. She was seen and assessed at the time of ED presentation. Labs were obtained which were remarkable for glucose 196, lactic acid 2.8, albumin 3.2, globulin 3.6, and lipase at 196. Chest x-ray was essentially unremarkable for any acute cardiopulmonary processes. Abdominal x-ray reported primarily constipation of the ascending colon and underlying ileus with scattered air fluid levels noted. CT abdomen and pelvis with contrast reported early or partial small bowel obstruction with dilated upstream small bowel with a transition point right lower quadrant just anterior to the right common iliac artery. The presence of stool and gas was noted in the downstream colon however no pneumatosis or perforation was evident. In addition, fatty infiltration of the liver, and hiatal hernia was noted. A surgery consultation was requested during the ED encounter. The patient was seen and evaluated by Dr. Crisostomo. The patient was seen and evaluated however, due to the severity of the patient's comorbidities the hospitalist service has been requested to facilitate the inpatient admission. After brief discussion with both and Dr. Rodriguez, the patient will be admitted to the hospitalist service for continuation of care. Home medications have been reviewed and reconciled. CODE STATUS discussed; patient is a FULL CODE. Home Medications Medication Instructions Recorded Confirmed Type Gabapentin Cap/Tab [Neurontin 300 mg PO BID 12/11/16 12/11/16 History Cap/Tab] Hydrocodone/Acetaminophen [[place] 1 each PO Q6HR PRN 12/11/16 12/11/16 History 10-325 Tablet] Meloxicam [Mobic] 7.5 mg PO DAILY 12/11/16 12/11/16 History amLODIPine [Norvasc] 10 mg PO DAILY 12/11/16 12/11/16 History glipiZIDE [Glipizide] 5 mg PO DAILY 12/11/16 12/11/16 History hydroCHLOROthiazide 25 mg PO DAILY 12/11/16 12/11/16 History [Hydrochlorothiazide] metFORMIN [Glucophage] 1,000 mg PO BID W/MEALS 12/11/16 12/11/16 History Ciprofloxacin Tab [Cipro Tab] 500 mg PO Q12HR #10 tablet 12/13/16 Rx Allergies Allergy/AdvReac Type Severity Reaction Status Date / Time Penicillins Allergy Unknown/Unable Verified 12/10/16 20:20 to obtain Medical,Surgical,& Family Hx - Medical History Cardio: History of: [place] (1972) HEENT: History of: Eye Problem Respiratory: History of: Asthma, Bronchitis, COPD (Quit smoking in ) Genitourinary: History of: Kidney Stones (40 years ago small), Recurring Urinary Tract Infections - Surgical History Thoracic Surgeries: Patient denies;: Organ Transplant HEENT Surgeries: Surgical HX of: Eye Surgery (implant right eye surgery to remove blood clot 3 weeks ago) Patient denies: Thyroid Surgery Abdominal Surgeries: Patient denies: Appendectomy, Cholecystectomy Reproductive Surgeries: Surgical HX of;: Hysterectomy Orthopedic Surgeries: Surgical HX of;: Orthopedic Surgery, Spinal Surgery ( 3years ago), Total Knee Replacement (right) - Family History Family History: Reports;: Family Cancer, Family Diabetes, Family Hypertension - Social History Smoking Status: Former smoker - Constitutional Constitutional: Absent: anorexia, chills, daytime sleepiness, weakness - EENT Eyes: Absent: blurry vision, diplopia Ears: Absent: decreased hearing, ear discharge Nose, mouth and throat: Absent: dysphagia, epistaxis, neck mass - Cardiovascular Cardiovascular: Absent: claudication, diaphoresis, lightheadedness, palpitations - Respiratory Respiratory: Absent: dyspnea, hemoptysis, snoring - Gastrointestinal Gastrointestinal: Present: abdominal pain, constipation, diarrhea, loose stools , other (Epigastric pain). Absent: nausea, vomiting - Genitourinary Genitourinary: Absent: dysuria, flank pain, hematuria - Musculoskeletal Musculoskeletal: Absent: arthralgias, back pain, myalgias - Neurological Neurological: Absent: abnormal speech, behavioral changes, headache(s) - Psychiatric Psychiatric: Absent: anxiety, auditory hallucinations, homicidal ideation - Endocrine Endocrine: Absent: cold intolerance, fatigue, polydipsia, polyphagia, polyuria - Hematologic/Lymphatic Hematologic/Lymphatic: Absent: easy bleeding, easy bruising Exam - Constitutional Vitals: Period Temp Pulse Resp BP Sys/Porras Pulse Ox Last 24 Hr 98.2 F-98.2 F 68-96 16-21 143-179/71-97 96-100 General appearance: no acute distress, over weight - Head Head exam: Present: normal inspection, normocephalic, atraumatic - Eye Eye exam: Present: EOMI. Absent: conjunctival injection Pupils: Present: JACK, normal accommodation - ENT ENT exam: Present: normal exam, normal external ear exam, normal oropharynx - Neck Neck exam: Present: normal inspection. Absent: lymphadenopathy, meningismus, thyromegaly - Respiratory Respiratory exam: Present: clear to auscultation bilaterally. Absent: rales, rhonchi, stridor, wheezes - Cardiovascular Cardiovascular exam: Present: regular rate and rhythm. Absent: carotid bruit, diastolic murmur, gallop, JVD, rubs, systolic murmur - GI/Abdominal GI/Abdominal exam: Present: hypoactive bowel sounds, tenderness (Upon gentle palpation), soft - Extremities Exam Extremities exam: Present: normal inspection, normal capillary refill, full ROM. Absent: edema - Back Exam Back exam: Present: normal inspection - Neurological Exam Neurological exam: Present: alert, oriented X3, CN II-XII intact - Psychiatric Psychiatric exam: Present: normal affect, normal mood - Skin Skin exam: Present: normal color, warm, dry Results - Labs CBC & BMP: 01/19/17 11:14 01/19/17 11:14 Lab Results: I have reviewed the past 24 hour labs
[2017-01-19] MEDS ORDERED: DEXTROSE 50% 25 GM/50 ML VIAL IV PRN (16:51)
[2017-01-19] MEDS ORDERED: GLUCAGON 1 MG VIAL IM PRN (16:51)
[2017-01-19] MEDS ORDERED: hydrALAZINE 20 MG/1 ML VIAL IV PRN (16:52)
--- NOTE | 2017-01-19 17:36 | General Surgery Consult Note ---
Assessment and Plan - Time spent with patient Time spent with patient: Greater than 30 minutes (1) Small bowel obstruction, partial Status: Acute Assessment and plan: She appears to have an early onset of bowel obstruction likely small intestinal and likely partial. She has a normal white blood cell count. Her CT scan has contrast and I reviewed the images and there is contrast within the superior mesenteric artery and within the mesenteric vessels. I do not see obvious evidence of closed loop obstruction. She has a mildly elevated lactic acid level which could be related to dehydration but we would certainly have to be concerned about intestinal ischemia. We will monitor this. I would be in favor of conservative treatment for now with a nasogastric tube and IV fluids. She fails to resolve or worsens would need to send her surgery. This plan was discussed in detail with the patient and her son. Obviously she would like to avoid surgery if she can because of her obesity medical problems and advanced age Current Visit: Yes History of Present Illness Chief complaint: Abdominal pain History of present illness: Ms. Pendleton is a 81 year old female Who had a sudden onset of abdominal cramping and diarrhea yesterday about noon and the diarrhea subsided and she had continued cramping abdominal bloating and distention. Her pain is moderate in severity and is mostly in the upper abdomen but sometimes spreads across her abdomen like cramps. She is not having bowel movement or flatus. She has had nausea but no vomiting. He does not know of any aggravating or alleviating factors. She has had previous abdominal surgery including hysterectomy and previous hernia repairs. Home Medications Medication Instructions Recorded Confirmed Type Gabapentin Cap/Tab [Neurontin 300 mg PO BID 12/11/16 12/11/16 History Cap/Tab] Hydrocodone/Acetaminophen [[place] 1 each PO Q6HR PRN 12/11/16 12/11/16 History 10-325 Tablet] Meloxicam [Mobic] 7.5 mg PO DAILY 12/11/16 12/11/16 History amLODIPine [Norvasc] 10 mg PO DAILY 12/11/16 12/11/16 History glipiZIDE [Glipizide] 5 mg PO DAILY 12/11/16 12/11/16 History hydroCHLOROthiazide 25 mg PO DAILY 12/11/16 12/11/16 History [Hydrochlorothiazide] metFORMIN [Glucophage] 1,000 mg PO BID W/MEALS 12/11/16 12/11/16 History Ciprofloxacin Tab [Cipro Tab] 500 mg PO Q12HR #10 tablet 12/13/16 Rx Allergies Allergy/AdvReac Type Severity Reaction Status Date / Time Penicillins Allergy Unknown/Unable Verified 12/10/16 20:20 to obtain Medical,Surgical,& Family Hx - Medical History Cardio: History of: MS (1973) HEENT: History of: Eye Problem Respiratory: History of: Asthma, Bronchitis, COPD (Quit smoking in ) Genitourinary: History of: Kidney Stones (40 years ago small), Recurring Urinary Tract Infections - Surgical History Thoracic Surgeries: Patient denies;: Organ Transplant HEENT Surgeries: Surgical HX of: Eye Surgery (implant right eye surgery to remove blood clot 3 weeks ago) Patient denies: Thyroid Surgery Abdominal Surgeries: Surgical HX of: Hernia Repair Patient denies: Appendectomy, Cholecystectomy Reproductive Surgeries: Surgical HX of;: Hysterectomy Orthopedic Surgeries: Surgical HX of;: Orthopedic Surgery, Spinal Surgery ( 3years ago), Total Knee Replacement (right) - Family History Family History: Reports;: Family Cancer, Family Diabetes, Family Hypertension Denies;: Family Anesthesia Reaction, Family Heart Disease, Family Hematology , Family Psychiatric Problems, Family Stroke, Additional Family History - Social History Smoking Status: Former smoker Frequency of Alcohol Use: None Type of Drug Use: None - Constitutional Constitutional: Present: weight loss. Absent: chills, fever(s) - EENT Nose, mouth and throat: Absent: dysphagia - Cardiovascular Cardiovascular: Present: dyspnea on exertion. Absent: chest pain at rest, chest pain with activity, dyspnea - Respiratory Respiratory: Present: cough, dyspnea on exertion. Absent: dyspnea, hemoptysis - Gastrointestinal Gastrointestinal: Present: abdominal pain, bloating, cramping, diarrhea, nausea. Absent: hematemesis, hematochezia, melena, vomiting, jaundice - Genitourinary Genitourinary: Absent: dysuria, hematuria - Musculoskeletal Musculoskeletal: Absent: back pain - Neurological Neurological: Absent: focal weakness, syncope - Endocrine Endocrine: Absent: polyuria Hematologic/Lymphatic: Absent: easy bleeding, easy bruising Exam - Constitutional Vitals: Period Temp Pulse Resp BP Sys/Porras Pulse Ox Last 24 Hr 98.2 F-98.2 F 68-96 16-21 143-179/71-97 96-100 General appearance: no acute distress, morbidly obese - Head Head exam: Present: normocephalic - Eye Eye exam: Present: EOMI. Absent: scleral icterus Pupils: Present: JACK - ENT Mouth exam: Present: normal voice - Neck Neck exam: Present: trachea midline. Absent: lymphadenopathy, tenderness, thyromegaly - Respiratory Respiratory exam: Present: clear to auscultation bilaterally. Absent: accessory muscle use - Cardiovascular Cardiovascular exam: Present: RRR - GI/Abdominal GI/Abdominal exam: Present: distended, hypoactive bowel sounds, tenderness (Mild ), soft. Absent: guarding, mass, rebound - Extremities Exam Extremities exam: Absent: edema - Neurological Exam Neurological exam: Present: alert, oriented X3. Absent: motor sensory deficit Speech: Present: normal - Skin Skin exam: Present: normal color Results - Labs CBC & BMP: 01/19/17 11:14 01/19/17 11:14 Lab Results: I have reviewed the past 24 hour labs - Diagnostic Findings Procedure: CT Abdomen and Pelvis: image reviewed by me, report reviewed by me
[2017-01-19] MEDS: SODIUM CHLORIDE 0.9% 1,000 ML IV SCH (17:48)
[2017-01-19] MEDS: ENOXAPARIN 40 MG/0.4 ML SYRINGE SUBCUT SCH (17:48)
[2017-01-19] MEDS: INSULIN REGULAR 100 UNIT/ML SUBCUT SCH (17:49)
--- NOTE | 2017-01-19 18:36 | XRay Report ---
XR chest 1V portable Indication: Feeding tube placement. Chest one view: NG tube extends well into the stomach, coiled back somewhat since the tip is in the gastric cardia. Impression: NG tube well into the upper abdomen. PROCEDURE INTERPRETED AT [facility] DEPARTMENT OF RADIOLOGY Final Report Signed by: Justice Zelaya M.D.
[2017-01-19] MEDS: MORPHINE 2 MG/1 ML SYRINGE IV PRN (19:59)
[2017-01-20] MEDS: SODIUM CHLORIDE 0.9% 1,000 ML IV SCH ×4 (00:02→22:00)
[2017-01-20] MEDS: INSULIN REGULAR 100 UNIT/ML SUBCUT SCH ×4 (00:05→17:47)
--- NOTE | 2017-01-20 05:58 | EKG Report ---
Stationary ECG Study [facility] ER Test Date: 01/19/2017 10:48:30 AM Pat Name: DAVID LINK Department: Room: 523 Gender: F Trading Specialist: : [id number] Requested by: Alber Chavez Order Number: [id number] Marine MD: HALIMA DESAI Intervals [place] Rate: 86 P: 55 VT: 170 QRS: 54 QRSD: 91 T: 65 QT: 358 QTc: 402 Interpretive Statements SINUS RHYTHM WITH SINUS ARRHYTHMIA LEFT ATRIAL ABNORMALITY Electronically Signed On 01-20-17 06:45:17 CDT by HALIMA DESAI [email or web address]
[2017-01-20 06:08] LABS: Basophils % 0.1 % (0.0-0.8); Eosinophils % 0.3 % (0.00-10.9); Hematocrit 41.5 VOL% (35.7-47.0); Hemoglobin 13.6 GM/DL (12.0-16.0); Immature Granulocytes % 0.4 %; Immature Granulocytes Absolute 0.03 #; Lymphocytes # 1.3 10*3/uL (1.4-4.0); Mean Corpuscular HGB Conc 32.8 GM/DL (32-36); Mean Corpuscular Hemoglobin 30 PG (27-34); Mean Corpuscular Volume 92.2 FL (87-102); Mean Platelet Volume 11.2 FL (9.6-12.0); Monocytes # 0.8 10*3/uL (0.11-0.8); Neutrophils # 5.2 10*3/uL (1.4-7.4); Neutrophils % 70.2 % (38.7-73.9); Platelet Count 271 T/CUMM (130-400); Red Cell Distribution Width 13.5 % (9.3-17.3); White Blood Count 7.4 T/CUMM (4-12)
[2017-01-20 06:55] LABS: Bilirubin,Total 0.8 MG/DL (0.2-1.0); Calcium 8.9 MG/DL (8.5-10.1); Osmolality,Calculated 274.5 MOS/KG (273-304); Potassium 4.3 MMOL/L (3.5-5.1); Total Protein 6.6 G/DL (6.4-8.3)
[2017-01-20] MEDS: ONDANSETRON 4 MG/2 ML VIAL IV PRN (08:15)
[2017-01-20] MEDS: MORPHINE 2 MG/1 ML SYRINGE IV PRN ×2 (09:04→17:11)
--- NOTE | 2017-01-20 09:39 | General Surgery Progress Note ---
Assessment and Plan (1) Small bowel obstruction, partial Status: Acute Assessment and plan: She appears to have an early onset of bowel obstruction likely small intestinal and likely partial. She has a normal white blood cell count. Her CT scan has contrast and I reviewed the images and there is contrast within the superior mesenteric artery and within the mesenteric vessels. I do not see obvious evidence of closed loop obstruction. She has a mildly elevated lactic acid level which could be related to dehydration but we would certainly have to be concerned about intestinal ischemia. We will monitor this. I would be in favor of conservative treatment for now with a nasogastric tube and IV fluids. She fails to resolve or worsens would need to send her surgery. This plan was discussed in detail with the patient and her son. Obviously she would like to avoid surgery if she can because of her obesity medical problems and advanced age 8/21: She still has some pain but this is better than yesterday. She has less distended and less tender. Her lab work looks good and her vital signs are stable. I think that she still has an ongoing small bowel obstruction. We will continue nasogastric suction today. If she is not resolving by tomorrow then we will need to talk about surgery. Current Visit: Yes Subjective Patient reports: Present: still having pain, no flatus, no bowel movement. Absent: nausea, vomiting Exam - Constitutional Vitals: Period Temp Pulse Resp BP Sys/Porras Pulse Ox Last 24 Hr 97.2 F-99.3 F 68-96 16-21 143-179/66-97 93-100 General appearance: no acute distress, morbidly obese - Respiratory Respiratory exam: Absent: accessory muscle use - GI/Abdominal GI/Abdominal exam: Present: distended, tenderness (This is less), soft. Absent : rebound Results - Labs CBC & BMP: 01/20/17 04:53 01/20/17 04:53 Lab Results: I have reviewed the past 24 hour labs
--- NOTE | 2017-01-20 11:48 | Hospitalist Progress Note ---
<Conchis Cashda - Last Filed: 01/20/17 11:46> Assessment and Plan (1) Small bowel obstruction, partial Status: Acute Assessment and plan: Abdominal x-ray reported primarily constipation of the ascending colon and underlying ileus with scattered air fluid levels noted. CT abdomen and pelvis with contrast reported early or partial small bowel obstruction with dilated upstream small bowel with a transition point right lower quadrant just anterior to the right common iliac artery. The presence of stool and gas was noted in the downstream colon however no pneumatosis or perforation was evident. In addition, fatty infiltration of the liver, and hiatal hernia was noted. The patient was seen and evaluated during the ED encounter by Dr. Crisostomo. At the time of assessment, the ED staff was inserting nasogastric tube. We will continue gastric decompression via nasogastric tube with low intermittent suction. We will gently rehydrate, maintain n.p.o. status, start Accu-Cheks with sliding scale coverage, anti-emetics, start PPIs, DVT prophylactics, and pain management. We will monitor the patient closely during the clinical encounter. 01/20-NG tube output remains excessive. We will continue gastric decompression per NG tube. The patient has been evaluated by surgery. We will continue to rehydrate, maintain n.p.o. status, continue Accu-Cheks with sliding scale coverage, protein pump inhibitors, DVT prophylaxis, and pain management as previously ordered. We appreciate the input given by surgery. We will reassess patient condition in a.m. and coordinate with surgery for further direction. Current Visit: Yes Hospitalist: Subjective Interval history: Patient seen and examined; chart reviewed. NG tube output remains excessive. The patient seen and evaluated by surgery this morning no immediate surgical intervention is warranted at this time. We will continue conservative measures. Exam - Constitutional Vitals: Period Temp Pulse Resp BP Sys/Porras Pulse Ox Last 24 Hr 97.2 F-99.3 F 68-93 16-21 143-179/66-97 93-100 General appearance: normal weight, no acute distress - Head Head exam: Present: normal inspection, normocephalic, atraumatic - Eye Eye exam: Present: EOMI. Absent: conjunctival injection Pupils: Present: JACK, normal accommodation - ENT ENT exam: Present: normal exam, normal external ear exam, normal oropharynx - Neck Neck exam: Present: normal inspection. Absent: lymphadenopathy, meningismus, thyromegaly - Respiratory Respiratory exam: Present: clear to auscultation bilaterally. Absent: rales, rhonchi, stridor, wheezes - Cardiovascular Cardiovascular exam: Present: regular rate and rhythm. Absent: carotid bruit, diastolic murmur, gallop, JVD, rubs, systolic murmur - GI/Abdominal GI/Abdominal exam: Present: hypoactive bowel sounds, soft, other (NG tube noted ; large amount of output noted.). Absent: tenderness - Extremities Exam Extremities exam: Present: normal inspection, normal capillary refill, full ROM - Back Exam Back exam: Present: normal inspection - Neurological Exam Neurological exam: Present: alert, oriented X3, CN II-XII intact - Psychiatric Psychiatric exam: Present: flat affect - Skin Skin exam: Present: normal color, warm, dry Results - Labs CBC & BMP: 01/20/17 04:53 01/20/17 04:53 Lab Results: I have reviewed the past 24 hour labs <Negra Cheung - Last Filed: 01/20/17 12:38> Hospitalist: Subjective Interval history: Patient states she doesn't really feel good. Her NG tube is still draining copious brownish-greenish fluid.We will commence PPN and follow surgery's recommendations. HTN:continue with hydralazine prn Diabetes:HbA1c level-6.5, continue with accucheks Exam - Constitutional Vitals: Period Temp Pulse Resp BP Sys/Porras Pulse Ox Last 24 Hr 97.2 F-99.3 F 68-93 16-21 143-179/66-97 93-100 Results - Labs CBC & BMP: 01/20/17 04:53 01/20/17 04:53
[2017-01-20] MEDS: PANTOPRAZOLE 40 MG VIAL IV SCH (13:36)
[2017-01-20] MEDS ORDERED: DEXTROSE 50% 25 GM/50 ML SYRINGE IV PRN (15:30)
[2017-01-20] MEDS: ENOXAPARIN 40 MG/0.4 ML SYRINGE SUBCUT SCH (16:45)
[2017-01-20] MEDS: FAT EMULSION 20% 250 ML IV SCH (16:45)
[2017-01-20] MEDS: TRACE ELEMENTS (5) 1 ML, MULTIVITAMIN INJ 10 ML in AMINO ACIDS/DEXT/LYTES 4.25-5% 2,000 ML IV SCH (16:45)
[2017-01-21 01:26] LABS: Apearance,Urine CLEAR (Clear); Bacteria,Urine Occasional /HPF (Few); Bilirubin,Urine Negative (Negative); Blood, Urine Negative (Negative); Glucose,Urine (UA) Negative (Negative); Ketones,Urine Negative (Negative); Nitrite,Urine Negative (Negative); Protein,Urine Negative; RBC,Urine <1 /HPF (0-4); Urine Color Colorless (Yellow); Urine Specific Gravity 1.002 (1.001-1.035); Urine Urobilinogen < 2.0 EU/DL (0.2-1.0)
[2017-01-21] MEDS: INSULIN REGULAR 100 UNIT/ML SUBCUT SCH ×4 (02:15→18:19)
[2017-01-21] MEDS: SODIUM CHLORIDE 0.9% 1,000 ML IV SCH ×2 (05:35→15:54)
[2017-01-21] MEDS ORDERED: PHENOL 1.4% THROAT SPRAY 177 ML BOTTLE PO PRN (06:54)
[2017-01-21 07:21] LABS: Basophils % 0.1 % (0.0-0.8); Eosinophils % 0.3 % (0.00-10.9); Hematocrit 37.8 VOL% (35.7-47.0); Hemoglobin 12.8 GM/DL (12.0-16.0); Immature Granulocytes % 0.3 %; Immature Granulocytes Absolute 0.02 #; Lymphocytes # 1.1 10*3/uL (1.4-4.0); Lymphocytes % 15.9 % (21.3-54.2); Mean Corpuscular HGB Conc 33.9 GM/DL (32-36); Mean Corpuscular Hemoglobin 31 PG (27-34); Mean Corpuscular Volume 91.1 FL (87-102); Mean Platelet Volume 11.4 FL (9.6-12.0); Monocytes % 14.6 % (1.7-12.7); Neutrophils # 4.6 10*3/uL (1.4-7.4); Neutrophils % 68.8 % (38.7-73.9); Platelet Count 273 T/CUMM (130-400); Red Blood Count 4.15 MC/CUMM (3.8-5.5); Red Cell Distribution Width 13.3 % (9.3-17.3); White Blood Count 6.7 T/CUMM (4-12)
[2017-01-21 08:01] LABS: Albumin 2.8 G/DL (3.4-5.0); Bilirubin,Total 1.1 MG/DL (0.2-1.0); Calcium 8.7 MG/DL (8.5-10.1); Calcium 8.8 MG/DL (8.5-10.1); Magnesium 2.1 MG/DL (1.8-2.4); Osmolality,Calculated 277.7 MOS/KG (273-304); Osmolality,Calculated 278.7 MOS/KG (273-304); Phosphorous 2.9 MG/DL (2.5-4.9); Potassium 4.1 MMOL/L (3.5-5.1); Prealbumin 11.7 MG/DL (20-40); Total Protein 6.2 G/DL (6.4-8.3)
[2017-01-21] MEDS: PANTOPRAZOLE 40 MG VIAL IV SCH (08:51)
--- NOTE | 2017-01-21 12:09 | General Surgery Progress Note ---
Assessment and Plan - Time spent with patient Time spent with patient: Less than 30 minutes (1) Small bowel obstruction, partial Status: Acute Assessment and plan: She appears to have an early onset of bowel obstruction likely small intestinal and likely partial. She has a normal white blood cell count. Her CT scan has contrast and I reviewed the images and there is contrast within the superior mesenteric artery and within the mesenteric vessels. I do not see obvious evidence of closed loop obstruction. She has a mildly elevated lactic acid level which could be related to dehydration but we would certainly have to be concerned about intestinal ischemia. We will monitor this. I would be in favor of conservative treatment for now with a nasogastric tube and IV fluids. She fails to resolve or worsens would need to send her surgery. This plan was discussed in detail with the patient and her son. Obviously she would like to avoid surgery if she can because of her obesity medical problems and advanced age 8/21: She still has some pain but this is better than yesterday. She has less distended and less tender. Her lab work looks good and her vital signs are stable. I think that she still has an ongoing small bowel obstruction. We will continue nasogastric suction today. If she is not resolving by tomorrow then we will need to talk about surgery. 01/21: She feels better and has less pain. She has started passing some flatus but has not had a bowel movement. Her abdomen is less distended and is not tender today. Her bowel obstruction may be resolving. We will continue nasogastric suction today. Current Visit: Yes Subjective Patient reports: Present: feels better, pain is less, flatus, no bowel movement. Absent: nausea, vomiting, shortness of breath Exam - Constitutional Vitals: Period Temp Pulse Resp BP Sys/Porras Pulse Ox Last 24 Hr 97.5 F-99.0 F 86-102 16-20 140-168/73-87 91-100 General appearance: no acute distress, morbidly obese - Respiratory Respiratory exam: Absent: accessory muscle use - GI/Abdominal GI/Abdominal exam: Present: soft. Absent: distended, tenderness, rebound Results - Labs CBC & BMP: 01/21/17 06:38 01/21/17 06:38 Lab Results: I have reviewed the past 24 hour labs
--- NOTE | 2017-01-21 13:10 | Hospitalist Progress Note ---
<Conchis Cashda - Last Filed: 01/21/17 13:08> Assessment and Plan (1) Small bowel obstruction, partial Status: Acute Assessment and plan: Abdominal x-ray reported primarily constipation of the ascending colon and underlying ileus with scattered air fluid levels noted. CT abdomen and pelvis with contrast reported early or partial small bowel obstruction with dilated upstream small bowel with a transition point right lower quadrant just anterior to the right common iliac artery. The presence of stool and gas was noted in the downstream colon however no pneumatosis or perforation was evident. In addition, fatty infiltration of the liver, and hiatal hernia was noted. The patient was seen and evaluated during the ED encounter by Dr. Crisostomo. At the time of assessment, the ED staff was inserting nasogastric tube. We will continue gastric decompression via nasogastric tube with low intermittent suction. We will gently rehydrate, maintain n.p.o. status, start Accu-Cheks with sliding scale coverage, anti-emetics, start PPIs, DVT prophylactics, and pain management. We will monitor the patient closely during the clinical encounter. 01/20-NG tube output remains excessive. We will continue gastric decompression per NG tube. The patient has been evaluated by surgery. We will continue to rehydrate, maintain n.p.o. status, continue Accu-Cheks with sliding scale coverage, protein pump inhibitors, DVT prophylaxis, and pain management as previously ordered. We appreciate the input given by surgery. We will reassess patient condition in a.m. and coordinate with surgery for further direction. Current Visit: Yes Hospitalist: Subjective Interval history: Patient seen and examined. Chart reviewed. No significant overnight events. NG tube output noted at 1.1 liters. PPN initiated on yesterday. We will continue supportive care. Exam - Constitutional Vitals: Period Temp Pulse Resp BP Sys/Porras Pulse Ox Last 24 Hr 97.5 F-99.0 F 81-102 16-20 140-168/71-87 91-100 General appearance: normal weight, no acute distress - Head Head exam: Present: normal inspection, normocephalic, atraumatic - Eye Eye exam: Present: EOMI. Absent: conjunctival injection Pupils: Present: JACK, normal accommodation - ENT ENT exam: Present: normal exam, normal external ear exam, normal oropharynx - Neck Neck exam: Present: normal inspection. Absent: lymphadenopathy, meningismus, tenderness, thyromegaly - Respiratory Respiratory exam: Present: clear to auscultation bilaterally. Absent: rales, rhonchi, stridor, wheezes - Cardiovascular Cardiovascular exam: Present: regular rate and rhythm. Absent: carotid bruit, diastolic murmur, gallop, JVD, rubs, systolic murmur - GI/Abdominal GI/Abdominal exam: Present: normal bowel sounds, soft, other (NG tube patent and intact) - Extremities Exam Extremities exam: Present: normal inspection, normal capillary refill, full ROM. Absent: edema - Back Exam Back exam: Present: normal inspection - Neurological Exam Neurological exam: Present: alert, oriented X3, CN II-XII intact - Psychiatric Psychiatric exam: Present: normal affect, normal mood - Skin Skin exam: Present: normal color, warm, dry Results - Labs CBC & BMP: 01/21/17 06:38 01/21/17 06:38 <Negra Cheung - Last Filed: 01/21/17 13:43> Hospitalist: Subjective Interval history: Patient was seen sitting up on a chair today. She states she feels better. We will repeat KUB today.Labs in am Exam - Constitutional Vitals: Period Temp Pulse Resp BP Sys/Porras Pulse Ox Last 24 Hr 97.5 F-99.0 F 81-102 16-20 140-168/71-87 91-100 Results - Labs CBC & BMP: 01/21/17 06:38 01/21/17 06:38
--- NOTE | 2017-01-21 14:09 | XRay Report ---
XR KUB Indication: Ileus. Abdomen one view: Comparison 01/19/2017 shows worsening gaseous distention of small bowel, diameters now measuring upwards of 4 cm diameter. Some stool and gas is still shown in the ascending colon as well as rectal vault. No free air. The NG tube is coiled upon itself, presumably in the completely decompressed stomach. Impression: There is now evidence of partial small bowel obstruction with increased gaseous dilatation of small bowel having developed. Stool and gas is still shown segments of the colon. Stomach is completely decompressed. PROCEDURE INTERPRETED AT [facility] DEPARTMENT OF RADIOLOGY Final Report Signed by: Justice Zelaya M.D.
[2017-01-21] MEDS: FAT EMULSION 20% 250 ML IV SCH (14:45)
[2017-01-21] MEDS: TRACE ELEMENTS (5) 1 ML, MULTIVITAMIN INJ 10 ML in AMINO ACIDS/DEXT/LYTES 4.25-5% 2,000 ML IV SCH (15:42)
[2017-01-21] MEDS: ENOXAPARIN 40 MG/0.4 ML SYRINGE SUBCUT SCH (17:31)
[2017-01-22] MEDS: INSULIN REGULAR 100 UNIT/ML SUBCUT SCH ×4 (01:27→17:54)
[2017-01-22 05:51] LABS: Basophils % 0.1 % (0.0-0.8); Eosinophils % 0.4 % (0.00-10.9); Hemoglobin 12.5 GM/DL (12.0-16.0); Immature Granulocytes % 0.4 %; Immature Granulocytes Absolute 0.03 #; Lymphocytes # 1.1 10*3/uL (1.4-4.0); Mean Corpuscular HGB Conc 33.8 GM/DL (32-36); Mean Corpuscular Hemoglobin 31 PG (27-34); Mean Corpuscular Volume 90.5 FL (87-102); Mean Platelet Volume 10.9 FL (9.6-12.0); Monocytes # 1.2 10*3/uL (0.11-0.8); Monocytes % 17.3 % (1.7-12.7); Neutrophils # 4.7 10*3/uL (1.4-7.4); Neutrophils % 66.8 % (38.7-73.9); Platelet Count 262 T/CUMM (130-400); Red Blood Count 4.09 MC/CUMM (3.8-5.5); Red Cell Distribution Width 13.3 % (9.3-17.3)
[2017-01-22 06:18] LABS: Giant Platelets Few; Hypochromasia 1+; Lymphocytes 12 % (20-55); Platelet Estimate Adequate; Segmented Neutrophils 72 % (50-85); Total Cells Counted 100
[2017-01-22] MEDS: SODIUM CHLORIDE 0.9% 1,000 ML IV SCH ×3 (06:22→16:19)
[2017-01-22 06:29] LABS: Albumin 2.8 G/DL (3.4-5.0); Bilirubin,Total 0.7 MG/DL (0.2-1.0); Magnesium 2.2 MG/DL (1.8-2.4); Osmolality,Calculated 278.5 MOS/KG (273-304); Phosphorous 2.8 MG/DL (2.5-4.9); Potassium 4.1 MMOL/L (3.5-5.1); Total Protein 6.3 G/DL (6.4-8.3)
[2017-01-22] MEDS: PANTOPRAZOLE 40 MG VIAL IV SCH (09:52)
--- NOTE | 2017-01-22 10:51 | Hospitalist Progress Note ---
Assessment and Plan (1) Small bowel obstruction, partial Status: Acute Assessment and plan: Abdominal x-ray reported primarily constipation of the ascending colon and underlying ileus with scattered air fluid levels noted. CT abdomen and pelvis with contrast reported early or partial small bowel obstruction with dilated upstream small bowel with a transition point right lower quadrant just anterior to the right common iliac artery. The presence of stool and gas was noted in the downstream colon however no pneumatosis or perforation was evident. In addition, fatty infiltration of the liver, and hiatal hernia was noted. The patient was seen and evaluated during the ED encounter by Dr. Crisostomo. At the time of assessment, the ED staff was inserting nasogastric tube. We will continue gastric decompression via nasogastric tube with low intermittent suction. We will gently rehydrate, maintain n.p.o. status, start Accu-Cheks with sliding scale coverage, anti-emetics, start PPIs, DVT prophylactics, and pain management. We will monitor the patient closely during the clinical encounter. 01/20-NG tube output remains excessive. We will continue gastric decompression per NG tube. The patient has been evaluated by surgery. We will continue to rehydrate, maintain n.p.o. status, continue Accu-Cheks with sliding scale coverage, protein pump inhibitors, DVT prophylaxis, and pain management as previously ordered. We appreciate the input given by surgery. We will reassess patient condition in a.m. and coordinate with surgery for further direction. 01/21-NG tube output decreasing; noted at 120 mL overnight. KUB on yesterday remarkable for evidence of partial small bowel obstruction with increased gaseous dilation of the small bowel. In addition stool and gas continued to be noted in segments of the colon. General surgery is following. We will continue PPN as previously ordered. We will recheck labs in a.m. Current Visit: Yes Hospitalist: Subjective Interval history: Patient seen and examined; chart reviewed. No significant overnight events reported per staff. PPN remains in progress. KUB on yesterday reported evidence of partial small bowel obstruction with increased gaseous dilation of the small bowel. In addition stool and gas continued to be noted in segments of the colon. General surgery is following. Exam - Constitutional Vitals: Period Temp Pulse Resp BP Sys/Porras Pulse Ox Last 24 Hr 97.0 F-100.0 F 81-104 16-20 134-169/52-93 93-97 General appearance: normal weight, no acute distress - Head Head exam: Present: normal inspection, normocephalic, atraumatic - Eye Eye exam: Present: EOMI. Absent: conjunctival injection Pupils: Present: JACK, normal accommodation - ENT ENT exam: Present: normal exam, normal external ear exam, normal oropharynx - Neck Neck exam: Present: normal inspection. Absent: lymphadenopathy, meningismus, tenderness, thyromegaly - Respiratory Respiratory exam: Present: clear to auscultation bilaterally. Absent: rales, rhonchi, stridor, wheezes - Cardiovascular Cardiovascular exam: Present: regular rate and rhythm. Absent: carotid bruit, diastolic murmur, gallop - GI/Abdominal GI/Abdominal exam: Present: hypoactive bowel sounds, soft. Absent: mass, tenderness - Extremities Exam Extremities exam: Present: normal inspection, normal capillary refill, full ROM. Absent: edema - Back Exam Back exam: Present: normal inspection - Neurological Exam Neurological exam: Present: alert, oriented X3, CN II-XII intact - Psychiatric Psychiatric exam: Present: normal affect, normal mood - Skin Skin exam: Present: normal color, warm, dry Results - Labs CBC & BMP: 01/22/17 05:19 01/22/17 05:19 Lab Results: I have reviewed the past 24 hour labs
--- NOTE | 2017-01-22 14:56 | General Surgery Progress Note ---
Assessment and Plan (1) Small bowel obstruction, partial Status: Acute Assessment and plan: She appears to have an early onset of bowel obstruction likely small intestinal and likely partial. She has a normal white blood cell count. Her CT scan has contrast and I reviewed the images and there is contrast within the superior mesenteric artery and within the mesenteric vessels. I do not see obvious evidence of closed loop obstruction. She has a mildly elevated lactic acid level which could be related to dehydration but we would certainly have to be concerned about intestinal ischemia. We will monitor this. I would be in favor of conservative treatment for now with a nasogastric tube and IV fluids. She fails to resolve or worsens would need to send her surgery. This plan was discussed in detail with the patient and her son. Obviously she would like to avoid surgery if she can because of her obesity medical problems and advanced age 8/21: She still has some pain but this is better than yesterday. She has less distended and less tender. Her lab work looks good and her vital signs are stable. I think that she still has an ongoing small bowel obstruction. We will continue nasogastric suction today. If she is not resolving by tomorrow then we will need to talk about surgery. 01/21: She feels better and has less pain. She has started passing some flatus but has not had a bowel movement. Her abdomen is less distended and is not tender today. Her bowel obstruction may be resolving. We will continue nasogastric suction today. 01/22: She states that she feels better and has less pain. She still complains that she feels weak because she has not eaten. She says that she is hungry. She has much less nasogastric output and we will remove her NG tube. It is unclear for sure whether her obstruction is relieved. She is passing flatus but no bowel movements. Her abdomen is certainly less distended and is not tender now. We will try p.o. diet. Current Visit: Yes Subjective Patient reports: Present: feels better, still having pain, flatus, no bowel movement. Absent: nausea, vomiting Exam - Constitutional Vitals: Period Temp Pulse Resp BP Sys/Porras Pulse Ox Last 24 Hr 97.0 F-100.0 F 92-104 16-20 134-169/52-93 93-99 General appearance: no acute distress - Head Head exam: Present: normocephalic - Respiratory Respiratory exam: Absent: accessory muscle use - GI/Abdominal GI/Abdominal exam: Present: soft. Absent: distended, tenderness Results - Labs CBC & BMP: 01/22/17 05:19 01/22/17 05:19 Lab Results: I have reviewed the past 24 hour labs
[2017-01-22] MEDS: FAT EMULSION 20% 250 ML IV SCH (15:17)
[2017-01-22] MEDS: TRACE ELEMENTS (5) 1 ML, MULTIVITAMIN INJ 10 ML in AMINO ACIDS/DEXT/LYTES 4.25-5% 2,000 ML IV SCH (15:20)
[2017-01-22] MEDS: ENOXAPARIN 40 MG/0.4 ML SYRINGE SUBCUT SCH (16:18)
--- NOTE | 2017-01-22 20:23 | XRay Report ---
XR chest 1V portable Indication: NG tube placement. Chest one view: NG tube is present tracking well into the stomach, tip at or just beyond the pylorus. Gaseous distention of small bowel is noted. Impression: NG tube position as described. PROCEDURE INTERPRETED AT [facility] [place] DEPARTMENT OF RADIOLOGY Final Report Signed by: Justice Zelaya M.D.
[2017-01-23] MEDS: INSULIN REGULAR 100 UNIT/ML SUBCUT SCH ×4 (00:24→18:25)
[2017-01-23] MEDS: SODIUM CHLORIDE 0.9% 1,000 ML IV SCH ×3 (02:07→23:59)
[2017-01-23] MEDS ORDERED: metroNIDAZOLE INJ 500 MG in PREMIX 1 EACH IV ONE (06:00)
[2017-01-23] MEDS ORDERED: LEVOFLOXACIN INJ 500 MG in PREMIX 1 EACH IV ONE (06:00)
[2017-01-23 07:17] LABS: Basophils % 0.2 % (0.0-0.8); Eosinophils # 0.1 10*3/uL (0.0-0.87); Eosinophils % 1.5 % (0.00-10.9); Hematocrit 37.7 VOL% (35.7-47.0); Hemoglobin 12.4 GM/DL (12.0-16.0); Immature Granulocytes % 0.2 %; Immature Granulocytes Absolute 0.01 #; Lymphocytes # 1.5 10*3/uL (1.4-4.0); Lymphocytes % 29.1 % (21.3-54.2); Mean Corpuscular HGB Conc 32.9 GM/DL (32-36); Mean Corpuscular Hemoglobin 30 PG (27-34); Mean Corpuscular Volume 91.3 FL (87-102); Mean Platelet Volume 11.5 FL (9.6-12.0); Monocytes # 1.2 10*3/uL (0.11-0.8); Monocytes % 22.4 % (1.7-12.7); Neutrophils # 2.4 10*3/uL (1.4-7.4); Neutrophils % 46.6 % (38.7-73.9); Platelet Count 255 T/CUMM (130-400); Red Blood Count 4.13 MC/CUMM (3.8-5.5); Red Cell Distribution Width 13.4 % (9.3-17.3); White Blood Count 5.2 T/CUMM (4-12)
[2017-01-23 07:43] LABS: Giant Platelets Few; Hypochromasia 1+; Lymphocytes 26 % (20-55); Platelet Estimate Adequate; Segmented Neutrophils 47 % (50-85); Total Cells Counted 100
[2017-01-23 08:00] LABS: Albumin 2.8 G/DL (3.4-5.0); Bilirubin,Total 0.7 MG/DL (0.2-1.0); Calcium 8.9 MG/DL (8.5-10.1); Magnesium 2.3 MG/DL (1.8-2.4); Osmolality,Calculated 280.4 MOS/KG (273-304); Phosphorous 3.5 MG/DL (2.5-4.9); Total Protein 6.3 G/DL (6.4-8.3)
[2017-01-23] MEDS ORDERED: PANTOPRAZOLE 40 MG VIAL IV ONE (08:14)
[2017-01-23] MEDS ORDERED: ALBUTEROL 2.5 MG/3 ML NEB RESP TX ONE (08:14)
[2017-01-23] MEDS ORDERED: LACTATED RINGERS 1,000 ML IV SCH (08:30)
--- NOTE | 2017-01-23 08:33 | General Surgery Progress Note ---
Assessment and Plan - Time spent with patient Time spent with patient: Greater than 30 minutes (1) Small bowel obstruction, partial Status: Acute Assessment and plan: She appears to have an early onset of bowel obstruction likely small intestinal and likely partial. She has a normal white blood cell count. Her CT scan has contrast and I reviewed the images and there is contrast within the superior mesenteric artery and within the mesenteric vessels. I do not see obvious evidence of closed loop obstruction. She has a mildly elevated lactic acid level which could be related to dehydration but we would certainly have to be concerned about intestinal ischemia. We will monitor this. I would be in favor of conservative treatment for now with a nasogastric tube and IV fluids. She fails to resolve or worsens would need to send her surgery. This plan was discussed in detail with the patient and her son. Obviously she would like to avoid surgery if she can because of her obesity medical problems and advanced age 8/21: She still has some pain but this is better than yesterday. She has less distended and less tender. Her lab work looks good and her vital signs are stable. I think that she still has an ongoing small bowel obstruction. We will continue nasogastric suction today. If she is not resolving by tomorrow then we will need to talk about surgery. 01/21: She feels better and has less pain. She has started passing some flatus but has not had a bowel movement. Her abdomen is less distended and is not tender today. Her bowel obstruction may be resolving. We will continue nasogastric suction today. 01/22: She states that she feels better and has less pain. She still complains that she feels weak because she has not eaten. She says that she is hungry. She has much less nasogastric output and we will remove her NG tube. It is unclear for sure whether her obstruction is relieved. She is passing flatus but no bowel movements. Her abdomen is certainly less distended and is not tender now. We will try p.o. diet. 01/23: The patient began having nausea and vomiting again yesterday after her nasogastric tube was removed and was started liquids. We replaced the NG tube yesterday evening and with the chest x-ray to check placement of the NG tube saw once again dilated small bowel. During the night the patient remove the NG tube herself. She continues to have nausea. She has abdominal cramping. It appears that she still has small bowel obstruction. I had a long discussion with the patient and her family and explained that conservative treatment of her small bowel obstruction has not been successful at relieving her obstruction and that I feel operative treatment is needed. They understand that with her advanced age and morbid obesity and medical problems that there is significant risk of morbidity and even some risk of mortality with surgery but we do not have other good options. They are all in agreement to go ahead with surgery. The procedure and risks were outlined in great detail with them and they wish to proceed. Current Visit: Yes Subjective Patient reports: Present: feels better, pain is less, no bowel movement, nausea , vomiting. Absent: tolerating liquids well, shortness of breath Exam - Constitutional Vitals: Period Temp Pulse Resp BP Sys/Porras Pulse Ox Last 24 Hr 97.0 F-98.5 F 88-103 18-20 152-191/69-87 95-100 General appearance: no acute distress - Head Head exam: Present: normocephalic - Eye Eye exam: Absent: scleral icterus - Respiratory Respiratory exam: Absent: accessory muscle use - GI/Abdominal GI/Abdominal exam: Present: distended, soft. Absent: guarding, tenderness, rebound - Neurological Exam Neurological exam: Present: alert, oriented X3 Results - Labs CBC & BMP: 01/23/17 06:23 01/23/17 06:16 Lab Results: I have reviewed the past 24 hour labs - Diagnostic Findings Procedure: Chest x-ray: report reviewed by me
[2017-01-23] MEDS ORDERED: hydrALAZINE 20 MG/1 ML VIAL ONE (10:09)
[2017-01-23] MEDS ORDERED: SUCCINYLCHOLINE 200 MG/10 ML VIAL ONE (10:09)
[2017-01-23] MEDS ORDERED: ETOMIDATE 20 MG/10 ML VIAL IV ONE (10:09)
[2017-01-23] MEDS ORDERED: LIDOCAINE 2% 5 ML VIAL ONE (10:09)
[2017-01-23] MEDS ORDERED: PROPOFOL 200 MG/20 ML VIAL IV ONE (10:09)
[2017-01-23] MEDS ORDERED: ROCURONIUM 100 MG/10 ML VIAL IV ONE (10:09)
[2017-01-23] MEDS ORDERED: ONDANSETRON 4 MG/2 ML VIAL ONE (10:09)
--- NOTE | 2017-01-23 12:26 | Operative Note ---
Date of procedure: 01/23/17 Pre-op diagnosis: Small bowel obstruction Post-op diagnosis: same Procedure: Exploratory laparotomy with complete small bowel enteroclysis (22) Findings and technique: After informed consent was obtained the patient was brought the operating room and placed in supine position. After successful induction with general anesthesia and placement of lines by anesthesia patient' s abdomen was prepped and draped in usual sterile fashion. The abdomen was opened through her old lower midline scar extending it just above the umbilicus. Peritoneal cavity was entered were extensive adhesions were noted between the omentum and the anterior abdominal wall. The omentum was completely dissected free and beneath the omentum were extensive small bowel adhesions. I was able to identify the right colon. To dissecting the pelvis I encountered intense scarring beneath her previous right lower quadrant incision and there was actually metallic wire type sutures within the peritoneal cavity extending from the abdominal wall into the peritoneal cavity. These wire sutures were removed. I did not see any evidence that they had perforated the bowel. I was able to identify the distal ileum which was extensively decompressed. Patient had multiple loops of markedly dilated bowel to the left of this. 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 I dissected down into the pelvis and found one adhesive band which had obstructed the jejunum and this was released. The bowel was a bit ecchymotic beneath this band and was inspected and felt to be viable. This band disappeared into a mass of hard scar tissue encasing small bowel. I had a tedious dissection over the course of about an hour dissecting small bowel free from the pelvis millimeter by millimeter. I felt that the one adhesive band probably was not these only cause of obstruction. I never had any dilation of the most distal ileum after I released the more proximal band. I dissected all of the bowel free out of the pelvis and found a portion of small bowel was encased in the chronic scar tissue and dense thick band and this was released as well. This effectively relieved the small bowel obstruction. Had complete small bowel enteroclysis over all the small bowel surfaces. There was an area of deserosalization that was oversewn with 3-0 silk Lembert sutures. No bowel injury perforation or incidental enterotomies occurred. The NG tube was well positioned in the stomach. The bowel was returned to its normal position. The midline wound was closed with a running #1 PDS suture taking generous bites of the midline fascia and skin closed with skin clips. Instrument counts were correct at the time of closure. The patient case was much more difficult than usual because of her morbid obesity and extensive intra-abdominal adhesions and frozen pelvis. These factors greatly added to the difficulty and complexity the case and essentially doubled the usual operative time. Anesthesia: [facility]AA Surgeon / Physician: Kevin Crisostomo III. Estimated blood loss: other (50) Specimens: none sent Condition: stable Disposition: PACU Results - Labs CBC & BMP: 01/23/17 06:23 01/23/17 06:16 Discharge Plan - Discharge Medications No Action glipiZIDE [Glipizide] 5 mg PO DAILY Gabapentin Cap/Tab [Neurontin Cap/Tab] 300 mg PO BID metFORMIN [Glucophage] 1,000 mg PO BID W/MEALS amLODIPine [Norvasc] 10 mg PO DAILY Meloxicam [Mobic] 7.5 mg PO DAILY hydroCHLOROthiazide [Hydrochlorothiazide] 25 mg PO DAILY Hydrocodone/Acetaminophen [Philipp 10-325 Tablet] 1 each PO Q6HR PRN PRN Reason: pain - Follow Up or Referral - Forms/Instructions
--- NOTE | 2017-01-23 12:45 | Anesthesia Post-Op ---
Anesthesia Post OP - Post Ansesthetic Evaluation Patient seen in post op: Yes Resp: within normal limits CV: within normal limits Mental: within normal limits Temp: within normal limits Gnxz-Ha-Yeavgyobe: within normal limits Nausea and Vomiting: within normal limits Pain: within normal limits
[2017-01-23] MEDS ORDERED: ONDANSETRON 4 MG/2 ML VIAL IV PRN (12:50)
[2017-01-23 12:54] LABS: Apearance,Urine CLEAR (Clear); Bilirubin,Urine Negative (Negative); Blood, Urine Negative (Negative); Glucose,Urine (UA) Negative (Negative); Ketones,Urine Negative (Negative); Mucus,Urine Occasional /LPF (Occasional); Nitrite,Urine Negative (Negative); Protein,Urine Negative; RBC,Urine 1 /HPF (0-4); Urine Color Straw (Yellow); Urine Specific Gravity 1.009 (1.001-1.035); Urine Urobilinogen < 2.0 EU/DL (0.2-1.0); WBC,Urine <1 /HPF (0-6)
[2017-01-23] MEDS: HYDROmorphone 2 MG/1 ML VIAL IV PRN ×2 (12:55→13:06)
[2017-01-23] MEDS ORDERED: SEVOFLURANE 1 UNIT/15 MINUTE INH ONE (13:03)
[2017-01-23] MEDS ORDERED: MIDAZOLAM 2 MG/2 ML VIAL ONE (13:03)
[2017-01-23] MEDS ORDERED: LACTATED RINGERS 1,000 ML IV ONE (13:04)
[2017-01-23] MEDS ORDERED: fentaNYL 100 MCG/2 ML VIAL ONE ×2 (13:04)
--- NOTE | 2017-01-23 13:05 | XRay Report ---
XR chest 1V portable Indication: Central line placement. Chest one view: Right IJ central line extends to the high right atrium. No pneumothorax shown. NG tube, normal heart size and mediastinal contour and pulmonary hypoinflation with atelectasis is unchanged from 01/19/2017. Impression: Uncomplicated Right IJ central line. PROCEDURE INTERPRETED AT [facility] DEPARTMENT OF RADIOLOGY Final Report Signed by: Justice Zelaya M.D.
--- NOTE | 2017-01-23 14:29 | Hospitalist Progress Note ---
Assessment and Plan (1) Small bowel obstruction, partial Status: Acute Assessment and plan: s/p Exploratory laparotomy with complete small bowel enteroclysis. Failed conservative management. Continue with Surgery's recommendations Current Visit: Yes (2) Uncontrolled hypertension Status: Chronic Assessment and plan: continue with IV hydralazine prn, will add IV Labetalol prn Current Visit: No (3) Type 2 diabetes mellitus Status: Acute Assessment and plan: continue current regime. [id number] Current Visit: No Qualifiers: Diabetes mellitus complication status: with unspecified complications Diabetes mellitus penitentiary insulin use: without medical terminologist use Qualified Code( s): E11.8 - Type 2 diabetes mellitus with unspecified complications Hospitalist: Subjective Interval history: Patient didnt tolerate her oral feeds. She started having copious vomiting so surgery took her for an exploratory laparotomy with complete small bowel enteroclysis this am. She is presently in the unit for closer monitoring. Exam - Constitutional Vitals: Period Temp Pulse Resp BP Sys/Porras Pulse Ox Last 24 Hr 97.0 F-98.5 F 72-103 16-20 148-208/66-88 95-100 General appearance: no acute distress - Head Head exam: Present: normal inspection - Respiratory Respiratory exam: Present: clear to auscultation bilaterally - GI/Abdominal GI/Abdominal exam: Present: tenderness - Extremities Exam Extremities exam: Present: normal inspection Results - Labs CBC & BMP: 01/23/17 06:23 01/23/17 06:16 Lab Results: I have reviewed the past 24 hour labs
[2017-01-23] MEDS: PANTOPRAZOLE 40 MG VIAL IV SCH (14:48)
[2017-01-23] MEDS: FAT EMULSION 20% 250 ML IV SCH (15:23)
[2017-01-23] MEDS: TRACE ELEMENTS (5) 1 ML, MULTIVITAMIN INJ 10 ML in AMINO ACIDS/DEXT/LYTES 4.25-5% 2,000 ML IV SCH (17:15)
[2017-01-23] MEDS: LABETALOL 20 MG/4 ML SYRINGE IV PRN (17:22)
[2017-01-23] MEDS: ENOXAPARIN 40 MG/0.4 ML SYRINGE SUBCUT SCH (18:08)
[2017-01-23] MEDS: MORPHINE 2 MG/1 ML SYRINGE IV PRN ×2 (18:29→22:34)
[2017-01-23] MEDS ORDERED: ALBUMIN 5% 12.5 GM in PREMIX 1 EACH IV ONE (18:50)
[2017-01-24] MEDS: MORPHINE 2 MG/1 ML SYRINGE IV PRN ×4 (01:34→21:26)
[2017-01-24 04:25] LABS: Basophils % 0.2 % (0.0-0.8); Eosinophils % 0.3 % (0.00-10.9); Hematocrit 35.8 VOL% (35.7-47.0); Immature Granulocytes % 0.5 %; Immature Granulocytes Absolute 0.05 #; Lymphocytes # 0.9 10*3/uL (1.4-4.0); Lymphocytes % 9.3 % (21.3-54.2); Mean Corpuscular HGB Conc 33.5 GM/DL (32-36); Mean Corpuscular Hemoglobin 31 PG (27-34); Mean Corpuscular Volume 91.3 FL (87-102); Mean Platelet Volume 10.3 FL (9.6-12.0); Monocytes # 1.6 10*3/uL (0.11-0.8); Monocytes % 16.2 % (1.7-12.7); Neutrophils # 7.4 10*3/uL (1.4-7.4); Neutrophils % 73.5 % (38.7-73.9); Platelet Count 256 T/CUMM (130-400); Red Blood Count 3.92 MC/CUMM (3.8-5.5); Red Cell Distribution Width 13.4 % (9.3-17.3); White Blood Count 10.1 T/CUMM (4-12)
[2017-01-24 04:53] LABS: Albumin 2.7 G/DL (3.4-5.0); Bilirubin,Total 0.6 MG/DL (0.2-1.0); Magnesium 1.9 MG/DL (1.8-2.4); Osmolality,Calculated 276.8 MOS/KG (273-304); Phosphorous 3.3 MG/DL (2.5-4.9); Potassium 4.1 MMOL/L (3.5-5.1); Total Protein 5.3 G/DL (6.4-8.3)
[2017-01-24 05:22] LABS: Band Neutrophils 4 % (0-10); Eosinophils 1 % (0-10); Giant Platelets Few; Hypochromasia 1+; Lymphocytes 4 % (20-55); Platelet Estimate Adequate; Segmented Neutrophils 79 % (50-85); Total Cells Counted 100
[2017-01-24] MEDS: INSULIN REGULAR 100 UNIT/ML SUBCUT SCH ×5 (06:29→23:47)
--- NOTE | 2017-01-24 08:23 | Event Note ---
She looks good postoperative day #1 from small bowel obstruction. She has good urine output and her vital signs are stable and her CVP is running around 8. Her CVP was a bit low in the immediate postop period. She appears to be doing well and has very minimal NG output not think we can get her NG tube out. I have cut her fluid back a bit. I think she should be okay to go to the floor today.
[2017-01-24] MEDS: SODIUM CHLORIDE 0.9% 1,000 ML IV SCH ×2 (09:10→09:18)
[2017-01-24] MEDS: PANTOPRAZOLE 40 MG VIAL IV SCH (09:18)
[2017-01-24] MEDS: LABETALOL 20 MG/4 ML SYRINGE IV PRN (11:06)
--- NOTE | 2017-01-24 14:20 | Hospitalist Progress Note ---
Assessment and Plan (1) Small bowel obstruction, partial Status: Acute Assessment and plan: The patient is status post laparotomy for lysis of adhesions. The patient is recovering well. Glucose is well controlled. Current Visit: Yes (2) Type 2 diabetes mellitus Status: Acute Current Visit: No Qualifiers: Diabetes mellitus complication status: with unspecified complications Diabetes mellitus watermelon harvesting supervisor insulin use: without intermediate use Qualified Code( s): E11.8 - Type 2 diabetes mellitus with unspecified complications Hospitalist: Subjective Interval history: This is postoperative day #1 for laparotomy and lysis of adhesions. The patient is hemodynamically stable and mental status is becoming more alert. Exam - Constitutional Vitals: Period Temp Pulse Resp BP Sys/Porras Pulse Ox Last 24 Hr 96.3 F-99.7 F 91-120 14-24 130-189/50-88 98-100 General appearance: mild distress - Respiratory Respiratory exam: Present: clear to auscultation bilaterally - Cardiovascular Cardiovascular exam: Present: regular rate and rhythm Results - Labs CBC & BMP: 01/24/17 04:15 01/24/17 04:15 Lab Results: I have reviewed the past 24 hour labs
[2017-01-24] MEDS: FAT EMULSION 20% 250 ML IV SCH (14:46)
[2017-01-24] MEDS: ENOXAPARIN 40 MG/0.4 ML SYRINGE SUBCUT SCH (16:03)
[2017-01-24] MEDS ORDERED: DEXTROSE 10% 500 ML IV PRN (16:13)
[2017-01-24] MEDS ORDERED: TRACE ELEMENTS (5) 1 ML, MULTIVITAMIN INJ 10 ML, INSULIN REGULAR 10 UNIT in AMINO ACIDS... IV SCH (17:00)
--- NOTE | 2017-01-24 18:28 | Pathology Report from [facility] ---
[facility] ACCESSION # : [id number] PATIENT NAME : David Link ORDERING DR : SCOTT TERRELL III, MD CLINICAL HX: Bowel obstructoin POST-OP DX: Same SPECIMEN INFO: #1 Wire in pelvis #2 Adhesion GROSS DESCRIPTION: #1 Received fresh labeled with the patients name DAVID LINK and #1 consists of two domingo metal wire fragments. Gross only.#2 Received in formalin labeled with the patients name DAVID LINK and #2 consists of a fragment of fatty, fibromembranous tissue measuring 8.5 x 1.0 cm. Bss Solution Architect sections submitted in cassette #2. DIAGNOSIS FOR DAVID LINK: #1 WIRE IN PELVIS: Gross only.#2 BOWEL ADHESION: Fibroadipose tissue with vascular congestion and focal hemorrhage, consistent with adhesion. COLLECTED DATE: 01/23/2017 [facility] REPORT DATE: 01/24/2017 ELECTRONICALLY SIGNED BY: Mili Torres M.D. 01/24/2017 - 13:56:53 [facility]
[2017-01-24] MEDS: ONDANSETRON 4 MG/2 ML VIAL IV PRN (21:27)
[2017-01-25] MEDS: MORPHINE 2 MG/1 ML SYRINGE IV PRN (02:25)
[2017-01-25] MEDS: SODIUM CHLORIDE 0.9% 1,000 ML IV SCH (04:40)
[2017-01-25] MEDS: INSULIN REGULAR 100 UNIT/ML SUBCUT SCH ×3 (06:36→18:14)
[2017-01-25 07:13] LABS: Calcium 8.2 MG/DL (8.5-10.1); Magnesium 2.1 MG/DL (1.8-2.4); Osmolality,Calculated 276.7 MOS/KG (273-304)
[2017-01-25] MEDS: PANTOPRAZOLE 40 MG VIAL IV SCH (08:40)
--- NOTE | 2017-01-25 11:37 | Hospitalist Progress Note ---
Assessment and Plan (1) Type 2 diabetes mellitus Status: Acute Assessment and plan: Her blood glucose is well controlled on sliding scale insulin coverage. Current Visit: No Qualifiers: Diabetes mellitus complication status: with unspecified complications Diabetes mellitus prison insulin use: without marine oil terminal superintendent use Qualified Code( s): E11.8 - Type 2 diabetes mellitus with unspecified complications (2) Weakness Status: Chronic Current Visit: No (3) Small bowel obstruction, partial Status: Acute Assessment and plan: She is stable day 3 status post laparotomy for lysis of abdominal adhesions. Current Visit: Yes Hospitalist: Subjective Interval history: Patient is status post laparotomy for lysis of abdominal adhesions. She complains of moderate abdominal pain which responds well to analgesic medications. She is unhappy because she is unable to eat. Exam - Constitutional Vitals: Period Temp Pulse Resp BP Sys/Porras Pulse Ox Last 24 Hr 97.4 F-99.6 F 91-106 16-98 128-177/46-72 97-100 General appearance: no acute distress - Head Head exam: Present: normal inspection - Neck Neck exam: Present: normal inspection - Respiratory Respiratory exam: Present: clear to auscultation bilaterally - Cardiovascular Cardiovascular exam: Present: regular rate and rhythm - GI/Abdominal GI/Abdominal exam: Present: normal bowel sounds, soft - Extremities Exam Extremities exam: Present: normal inspection - Neurological Exam Neurological exam: Present: alert, oriented X3 - Skin Skin exam: Present: normal color, warm, intact Results - Labs CBC & BMP: 01/24/17 04:15 01/25/17 06:01
[2017-01-25] MEDS: FAT EMULSION 20% 250 ML IV SCH (14:58)
[2017-01-25] MEDS: ENOXAPARIN 40 MG/0.4 ML SYRINGE SUBCUT SCH (16:37)
[2017-01-25] MEDS ORDERED: DEXTROSE 10% 1,000 ML IV PRN (17:00)
[2017-01-25] MEDS: TRACE ELEMENTS (5) 1 ML, MULTIVITAMIN INJ 10 ML, INSULIN REGULAR 20 UNIT in AMINO ACIDS... IV SCH (18:04)
--- NOTE | 2017-01-25 18:44 | Event Note ---
General Surgery Progress Note Chief complaint This patient is a 81-year-old woman admitted with small bowel obstruction treated with exploratory laparotomy with enterolysis on 01/23/2017 Interval history No events overnight. Patient feels thirsty. No flatus or bowel movements yet. No nausea or vomiting. Pain is well controlled. Patient has not gotten out of bed and walk around because she says she has been told that she is allowed to eat. Physical exam Afebrile with normal vital signs Chest is clear Heart is regular Abdomen is soft and appropriately tender with normal bowel sounds. Extremities with no edema Labs Reviewed, electrolytes unremarkable Imaging None new Assessment and plan Advance to clear liquids Increase activity and ambulate in the hallway Advance diet as tolerated and await return of bowel function
[2017-01-26] MEDS: MORPHINE 2 MG/1 ML SYRINGE IV PRN ×2 (00:16→18:17)
[2017-01-26] MEDS: ONDANSETRON 4 MG/2 ML VIAL IV PRN (00:33)
[2017-01-26] MEDS: INSULIN REGULAR 100 UNIT/ML SUBCUT SCH ×4 (01:19→18:02)
[2017-01-26] MEDS: SODIUM CHLORIDE 0.9% 1,000 ML IV SCH ×2 (02:58→05:51)
[2017-01-26 05:48] LABS: Basophils % 0.1 % (0.0-0.8); Eosinophils # 0.3 10*3/uL (0.0-0.87); Eosinophils % 2.7 % (0.00-10.9); Hematocrit 31.7 VOL% (35.7-47.0); Hemoglobin 10.4 GM/DL (12.0-16.0); Immature Granulocytes % 0.7 %; Immature Granulocytes Absolute 0.07 #; Lymphocytes # 0.9 10*3/uL (1.4-4.0); Mean Corpuscular HGB Conc 32.8 GM/DL (32-36); Mean Corpuscular Hemoglobin 30 PG (27-34); Mean Corpuscular Volume 91.9 FL (87-102); Mean Platelet Volume 11.2 FL (9.6-12.0); Monocytes # 1.5 10*3/uL (0.11-0.8); Monocytes % 14.9 % (1.7-12.7); Neutrophils # 7.4 10*3/uL (1.4-7.4); Neutrophils % 72.6 % (38.7-73.9); Platelet Count 234 T/CUMM (130-400); Red Blood Count 3.45 MC/CUMM (3.8-5.5); Red Cell Distribution Width 13.6 % (9.3-17.3); White Blood Count 10.2 T/CUMM (4-12)
[2017-01-26 06:13] LABS: Calcium 8.5 MG/DL (8.5-10.1); Osmolality,Calculated 282.4 MOS/KG (273-304); Potassium 3.8 MMOL/L (3.5-5.1)
[2017-01-26] MEDS: PANTOPRAZOLE 40 MG VIAL IV SCH (08:59)
--- NOTE | 2017-01-26 12:58 | Hospitalist Progress Note ---
Assessment and Plan (1) Acute UTI Status: Resolved Current Visit: No (2) Type 2 diabetes mellitus Status: Chronic Current Visit: No Qualifiers: Diabetes mellitus complication status: with unspecified complications Diabetes mellitus painting supervisor insulin use: without painting supervisor use Qualified Code( s): E11.8 - Type 2 diabetes mellitus with unspecified complications (3) Weakness Status: Chronic Current Visit: No (4) Small bowel obstruction, partial Status: Resolved Assessment and plan: Now status post surgery. Current Visit: Yes (5) Hypertension Status: Chronic Current Visit: Yes Qualifiers: Hypertension type: essential hypertension Qualified Code(s): I10 - Essential (primary) hypertension Hospitalist: Subjective Interval history: The patient is now sitting up in her chair. She is in a very good mood. No fevers or chills. Will discontinue IV fluids at this time. Follow-up chest x- ray. Exam - Constitutional Vitals: Period Temp Pulse Resp BP Sys/Porras Pulse Ox Last 24 Hr 97.5 F-98.9 F 95-114 18-20 145-160/62-72 92-100 General appearance: over weight - Head Head exam: Present: normal inspection - Eye Pupils: Present: JACK - ENT ENT exam: Present: normal exam - Neck Neck exam: Present: normal inspection - Respiratory Respiratory exam: Present: clear to auscultation bilaterally - Cardiovascular Cardiovascular exam: Present: regular rate and rhythm - GI/Abdominal GI/Abdominal exam: Present: normal bowel sounds - Neurological Exam Neurological exam: Present: alert, oriented X3, CN II-XII intact - Psychiatric Psychiatric exam: Present: normal affect, normal mood Results - Labs CBC & BMP: 01/26/17 05:24 01/26/17 05:24
--- NOTE | 2017-01-26 14:07 | XRay Report ---
Exam: XR chest 1V portable Date: 01/26/2017 11:11 AM Indication: Cough post abdominal surgery Comparison: 01/23/2017 Technical: AP Findings: A right IJ catheter is present with distal tip in the proximal right atrium. Nasogastric tube has been removed. The heart is mildly prominent. Mild interstitial thickening in the perihilar regions. No obvious consolidations present. Atelectasis is present. Tiny effusions present. No pneumothorax. Impression: 1. Removal nasogastric tube 2. Stable appearance of the right IJ catheter 3. Improving aeration with decreasing effusions and atelectatic change infiltrates in the bases bilaterally PROCEDURE INTERPRETED AT [facility] DEPARTMENT OF RADIOLOGY Final Report Signed by: Dr. Con Garnett
--- NOTE | 2017-01-26 14:12 | Event Note ---
General Surgery Progress Note Chief complaint This patient is a 81-year-old woman admitted with small bowel obstruction treated with exploratory laparotomy with enterolysis on 01/23/2017 Interval history The patient is passing gas. She is getting up and moving around more. She tolerated liquids with no nausea or vomiting. She feels hungry. Physical exam Afebrile with normal vital signs Chest is clear Heart is regular Abdomen is soft and appropriately tender with normal bowel sounds. The abdominal incision is clean and the staple line is intact there is no drainage or erythema. Expected tenderness Extremities with no edema Labs Reviewed, electrolytes unremarkable Imaging None new Assessment and plan Advance to low residue diet Discontinue Ac catheter Continue ambulation in the hallway Discharge planning
[2017-01-26] MEDS: POTASSIUM CHLORIDE RIDER 10 MEQ in PREMIX 1 EACH IV PRN ×2 (15:30→17:03)
[2017-01-26] MEDS: FAT EMULSION 20% 250 ML IV SCH (15:30)
[2017-01-26] MEDS: ENOXAPARIN 40 MG/0.4 ML SYRINGE SUBCUT SCH (15:30)
[2017-01-26] MEDS: TRACE ELEMENTS (5) 1 ML, MULTIVITAMIN INJ 10 ML, INSULIN REGULAR 20 UNIT in AMINO ACIDS... IV SCH (18:01)
[2017-01-27] MEDS: INSULIN REGULAR 100 UNIT/ML SUBCUT SCH ×5 (00:46→20:45)
[2017-01-27 05:56] LABS: Basophils % 0.2 % (0.0-0.8); Eosinophils # 0.3 10*3/uL (0.0-0.87); Eosinophils % 2.8 % (0.00-10.9); Hematocrit 31.6 VOL% (35.7-47.0); Hemoglobin 10.5 GM/DL (12.0-16.0); Immature Granulocytes % 1.2 %; Immature Granulocytes Absolute 0.11 #; Lymphocytes % 10.4 % (21.3-54.2); Mean Corpuscular HGB Conc 33.2 GM/DL (32-36); Mean Corpuscular Hemoglobin 30 PG (27-34); Mean Corpuscular Volume 91.3 FL (87-102); Mean Platelet Volume 11.4 FL (9.6-12.0); Monocytes # 1.4 10*3/uL (0.11-0.8); Monocytes % 14.6 % (1.7-12.7); Neutrophils # 6.6 10*3/uL (1.4-7.4); Neutrophils % 70.8 % (38.7-73.9); Platelet Count 256 T/CUMM (130-400); Red Blood Count 3.46 MC/CUMM (3.8-5.5); Red Cell Distribution Width 13.6 % (9.3-17.3); White Blood Count 9.3 T/CUMM (4-12)
[2017-01-27 06:31] LABS: Calcium 8.4 MG/DL (8.5-10.1); Osmolality,Calculated 283.5 MOS/KG (273-304); Phosphorous 2.4 MG/DL (2.5-4.9); Potassium 3.8 MMOL/L (3.5-5.1)
--- NOTE | 2017-01-27 08:15 | Event Note ---
She feels well. She is having bowel sounds and passing flatus. She is tolerating liquids without nausea or vomiting. She is afebrile. Her abdomen appears benign. We will advance her diet.
[2017-01-27] MEDS: PANTOPRAZOLE 40 MG VIAL IV SCH (08:33)
[2017-01-27] MEDS: ONDANSETRON 4 MG/2 ML VIAL IV PRN (11:04)
--- NOTE | 2017-01-27 11:29 | Hospitalist Progress Note ---
Assessment and Plan (1) Small bowel obstruction, partial Status: Resolved Assessment and plan: s/p Exploratory laparotomy with complete small bowel enteroclysis. Failed conservative management.She is currently tolerating po intake Plan DC TPN Continue with Surgery's recommendations Current Visit: Yes (2) Uncontrolled hypertension Status: Chronic Assessment and plan: resume po meds Current Visit: No (3) Type 2 diabetes mellitus Status: Chronic Assessment and plan: continue current regime. [id number]. resume po meds, patient is now eating. Current Visit: No Qualifiers: Diabetes mellitus complication status: with unspecified complications Diabetes mellitus terminologist insulin use: without longterm use Qualified Code( s): E11.8 - Type 2 diabetes mellitus with unspecified complications (4) Debility Status: Acute Assessment and plan: will consult PT/OT marketing segment manager for a possible swing bed placement. Current Visit: Yes Hospitalist: Subjective Interval history: Patient seen lying on the bed. She states she was hurting all over.She is tolerating po. Exam - Constitutional Vitals: Period Temp Pulse Resp BP Sys/Porras Pulse Ox Last 24 Hr 97.6 F-100.2 F 95-118 18-22 145-178/62-81 93-97 General appearance: no acute distress - Head Head exam: Present: normal inspection - Respiratory Respiratory exam: Present: clear to auscultation bilaterally - Cardiovascular Cardiovascular exam: Present: regular rate and rhythm - GI/Abdominal GI/Abdominal exam: Present: tenderness - Extremities Exam Extremities exam: Present: normal inspection Results - Labs CBC & BMP: 01/27/17 05:37 01/27/17 05:37 Lab Results: I have reviewed the past 24 hour labs
[2017-01-27] MEDS: MORPHINE 2 MG/1 ML SYRINGE IV PRN (11:54)
[2017-01-27] MEDS: hydroCHLOROthiazide 25 MG TABLET PO SCH (12:52)
[2017-01-27] MEDS: amLODIPine 10 MG TABLET PO SCH (12:52)
[2017-01-27] MEDS: ENOXAPARIN 40 MG/0.4 ML SYRINGE SUBCUT SCH (17:38)
[2017-01-27] MEDS: metFORMIN 500 MG TABLET PO SCH (17:39)
[2017-01-28 06:42] LABS: Basophils % 0.2 % (0.0-0.8); Eosinophils # 0.2 10*3/uL (0.0-0.87); Eosinophils % 1.4 % (0.00-10.9); Hematocrit 33.9 VOL% (35.7-47.0); Hemoglobin 11.1 GM/DL (12.0-16.0); Immature Granulocytes % 1.1 %; Immature Granulocytes Absolute 0.14 #; Lymphocytes # 1.1 10*3/uL (1.4-4.0); Lymphocytes % 9.2 % (21.3-54.2); Mean Corpuscular HGB Conc 32.7 GM/DL (32-36); Mean Corpuscular Hemoglobin 30 PG (27-34); Mean Corpuscular Volume 90.6 FL (87-102); Mean Platelet Volume 11.3 FL (9.6-12.0); Monocytes # 1.9 10*3/uL (0.11-0.8); Monocytes % 15.2 % (1.7-12.7); Neutrophils % 72.9 % (38.7-73.9); Platelet Count 291 T/CUMM (130-400); Red Blood Count 3.74 MC/CUMM (3.8-5.5); Red Cell Distribution Width 13.6 % (9.3-17.3); White Blood Count 12.3 T/CUMM (4-12)
[2017-01-28] MEDS: MORPHINE 2 MG/1 ML SYRINGE IV PRN ×2 (06:51→18:19)
--- NOTE | 2017-01-28 07:13 | Event Note ---
She does not feel well. She is afebrile with stable vital signs and continues with a mild tachycardia. Her abdomen is mildly distended. She has had some flatus but no bowel movement. She during the night has developed some cramping and nausea. Her white blood cell count is mildly elevated. I think that she still has some element of postoperative ileus.
[2017-01-28 07:15] LABS: Calcium 8.6 MG/DL (8.5-10.1); Osmolality,Calculated 273.8 MOS/KG (273-304); Potassium 3.8 MMOL/L (3.5-5.1)
[2017-01-28] MEDS: INSULIN REGULAR 100 UNIT/ML SUBCUT SCH ×4 (08:19→20:31)
[2017-01-28] MEDS: metFORMIN 500 MG TABLET PO SCH (09:31)
[2017-01-28] MEDS: MELOXICAM 7.5 MG TABLET PO SCH (09:31)
[2017-01-28] MEDS: hydroCHLOROthiazide 25 MG TABLET PO SCH (09:31)
[2017-01-28] MEDS: amLODIPine 10 MG TABLET PO SCH (09:31)
[2017-01-28] MEDS: PANTOPRAZOLE 40 MG VIAL IV SCH (09:32)
--- NOTE | 2017-01-28 13:34 | Hospitalist Progress Note ---
Hospitalist: Subjective Interval history: Patient notes some abdominal pain and a teaspoon of vomit. She also notes a cough. She denies any CP or SOB. She states that she has not had a bowel movement since she has been here. She is able to tolerate her clear liquid diet. Exam - Constitutional Vitals: Period Temp Pulse Resp BP Sys/Porras Pulse Ox Last 24 Hr 97.0 F-98.6 F 94-116 16-20 109-166/64-83 95-100 General appearance: no acute distress, morbidly obese - Eye Pupils: Present: JACK - Respiratory Respiratory exam: Present: decreased breath sounds. Absent: rales, rhonchi, wheezes - Cardiovascular Cardiovascular exam: Present: regular rate and rhythm, tachycardia (slightly tachycardic) - GI/Abdominal GI/Abdominal exam: Present: distended, hypoactive bowel sounds, tenderness ( diffuse tenderness without any rebound or guarding), soft - Neurological Exam Neurological exam: Present: alert, oriented X3 - Psychiatric Psychiatric exam: Present: normal affect, normal mood Results - Labs CBC & BMP: 01/28/17 06:29 01/28/17 06:29 - Impressions 1. Sepsis: given worsening leukocytosis and tachycardia. Concerned for GI source. Will obtain CTAP as well as cxray. May need antibiotics 2. Partial SBO s/p ex lap with complete small bowel enteroclysis: being followed by surgery; appreciate help 3. Constipation: will start with suppository; if ineffective, enema 4. Malnutrition: prealbumin 5. Consult nutrition 5. DM: sugars controlled; will stop metformin given constrast 6. Debility: PT/OT Plan: continue current therapy and as noted above
[2017-01-28] MEDS ORDERED: BISACODYL 10 MG SUPP RECTAL ONE ×2 (13:40→23:04)
--- NOTE | 2017-01-28 14:51 | XRay Report ---
XR chest 2V Indication: Sepsis, evaluate for pneumonia Comparison: Chest x-ray dated January 26, 2017 Technique: Frontal and lateral views of the chest. Findings: Right-sided central venous catheter appears grossly unchanged. The cardiomediastinal silhouette is stable in configuration. Chronic change of the lungs without focal consolidation, pleural effusion, or pneumothorax. Visualized osseous and surrounding soft tissue structures appear grossly unchanged. IMPRESSION: No adverse interval change. PROCEDURE INTERPRETED AT [facility] DEPARTMENT OF RADIOLOGY Final Report Signed by: Dr Davis Valdivia
--- NOTE | 2017-01-28 16:45 | CT Report ---
CT abdomen pelvis w con Indication: Sepsis. Evaluation for abscess. Worsening bowel obstruction. Comparison: CT of the abdomen and pelvis 01/19/2017. Technique: CT of the abdomen and pelvis was performed following administration of intravenous contrast. The CT examination was performed using one or more of the following dose reduction techniques: Automatic exposure control, adjustment of the mA and kV according to patient size, or iterative reconstruction techniques. Findings: Since the comparison study, there has been interval increase in the amount of fluid within the mesentery of the mid to lower right abdomen. Additionally, some segments of bowel wall demonstrate interval increase in bowel wall thickening. There is a curvilinear focus of increased attenuation within the pelvis favored to represent contrast-filled appendix. This is best demonstrated axial image #93 of the portal venous and delayed study. Some bubbles of air are suggested along the posterior surface of the cecum image #100. This collection is nonspecific and could reflect evidence of pneumatosis, extraluminal air is not entirely excluded. There does appear to be contrast within the SMA and SMV with minimal atherosclerotic disease suggested. Small bowel loops continue to be distended with multiple air fluid levels. Small bowel loops within the mid abdomen measure up to 4.7 cm in transverse dimension. Transition point is difficult to identify. Surgical clips are noted along the rectus musculature of the right lower abdomen. Otherwise, there has been little change in the contents of the abdomen and pelvis since comparison study. Impression: 1. Findings compatible with small bowel obstruction. Transition point is difficult to identify on today's study. Interval increase in bowel wall thickening as well as interval increase in mesenteric fluid and haziness could reflect early incarceration, evidence of infection, or venous congestive changes. 01/28/2017 4:29 PM PROCEDURE INTERPRETED AT [facility] DEPARTMENT OF RADIOLOGY Final Report Signed by: Dr. Juan Carlos Auguste
[2017-01-28] MEDS: ENOXAPARIN 40 MG/0.4 ML SYRINGE SUBCUT SCH (16:51)
[2017-01-29] MEDS: MORPHINE 2 MG/1 ML SYRINGE IV PRN ×2 (01:28→16:04)
--- NOTE | 2017-01-29 08:05 | Event Note ---
She feels much better since she has had a couple of bowel movements. She is also passing flatus. Her nausea and vomiting and cramping and distention are much improved. She is afebrile with stable vital signs. Her abdomen is nontender and nondistended and her incision looks good. I reviewed her CT scan images. This is about what I would expect postoperatively at this point. This does not look like a typical small bowel obstruction. There is a lot of postoperative change as I would expect. There is no evidence of leak or abscess. I would continue to slowly advance her diet. I am not surprised that she has a prolonged postoperative ileus type picture considering the conditions in her peritoneal cavity intraoperatively. 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 There was a large amount of manipulation and dissection of a good portion of her small bowel.
[2017-01-29] MEDS: amLODIPine 10 MG TABLET PO SCH (09:47)
[2017-01-29] MEDS: PANTOPRAZOLE 40 MG VIAL IV SCH (09:47)
[2017-01-29] MEDS: hydroCHLOROthiazide 25 MG TABLET PO SCH (09:47)
[2017-01-29] MEDS: MELOXICAM 7.5 MG TABLET PO SCH (09:47)
[2017-01-29] MEDS: INSULIN REGULAR 100 UNIT/ML SUBCUT SCH ×4 (10:22→20:57)
[2017-01-29] MEDS: ENOXAPARIN 40 MG/0.4 ML SYRINGE SUBCUT SCH (16:11)
--- NOTE | 2017-01-29 17:08 | Hospitalist Progress Note ---
Hospitalist: Subjective Interval history: Patient states that her abdomen hurts. Apparently, some of the trainees were examing her abdomen. Since then, she has been having some pain. She denies any n /v. She is having bowel movements. Nursing states that she has not been eating much today. Exam - Constitutional Vitals: Period Temp Pulse Resp BP Sys/Porras Pulse Ox Last 24 Hr 96.7 F-98.3 F 90-114 16-20 132-159/64-74 99-100 General appearance: mild distress - Eye Eye exam: Present: EOMI Pupils: Present: JACK - Respiratory Respiratory exam: Present: clear to auscultation bilaterally, decreased breath sounds. Absent: rales, rhonchi, wheezes - Cardiovascular Cardiovascular exam: Present: tachycardia (regular rhythm) - GI/Abdominal GI/Abdominal exam: Present: distended, hypoactive bowel sounds, tenderness - Neurological Exam Neurological exam: Present: oriented X3 Results - Labs CBC & BMP: 01/28/17 06:29 01/28/17 06:29 - Impressions 1. SIRS: given worsening leukocytosis (from yesterday) and tachycardia. Could be post op related. Being followed by Dr. Crisostomo. CT finding not concerning for obstruction. She has a post op ileus. f/u wbc. 2. Post op ileus: supportive care 3. Partial SBO s/p ex lap with complete small bowel enteroclysis: being followed by surgery; appreciate help 4. Constipation: resolved with laxatives. 5. Malnutrition: prealbumin 5. Nursing notes decreased oral intake. Will start d51/2 ns. 6. DM: sugars controlled 7. Debility: PT/OT Plan: as noted above
[2017-01-29] MEDS: DEXTROSE 5% NACL 0.45% 1,000 ML IV SCH (17:43)
[2017-01-30] MEDS: DEXTROSE 5% NACL 0.45% 1,000 ML IV SCH ×2 (03:46→14:35)
--- NOTE | 2017-01-30 06:35 | Event Note ---
Her abdomen feels better. She had a large bowel movement this morning. She denies nausea or vomiting. Her abdomen is nontender. She is afebrile. A repeat CBC is pending. She is tolerating liquids and we can advance her back to a soft diet. It appears her ileus is resolving.
[2017-01-30] MEDS: MORPHINE 2 MG/1 ML SYRINGE IV PRN (06:57)
[2017-01-30 07:03] LABS: Basophils % 0.2 % (0.0-0.8); Eosinophils # 0.2 10*3/uL (0.0-0.87); Eosinophils % 1.6 % (0.00-10.9); Hemoglobin 10.7 GM/DL (12.0-16.0); Immature Granulocytes % 1.7 %; Immature Granulocytes Absolute 0.22 #; Lymphocytes # 1.1 10*3/uL (1.4-4.0); Lymphocytes % 8.2 % (21.3-54.2); Mean Corpuscular HGB Conc 33.4 GM/DL (32-36); Mean Corpuscular Hemoglobin 30 PG (27-34); Mean Corpuscular Volume 90.4 FL (87-102); Mean Platelet Volume 11.8 FL (9.6-12.0); Monocytes # 1.6 10*3/uL (0.11-0.8); Monocytes % 12.7 % (1.7-12.7); Neutrophils # 9.7 10*3/uL (1.4-7.4); Neutrophils % 75.6 % (38.7-73.9); Platelet Count 318 T/CUMM (130-400); Red Blood Count 3.54 MC/CUMM (3.8-5.5); Red Cell Distribution Width 13.4 % (9.3-17.3); White Blood Count 12.9 T/CUMM (4-12)
[2017-01-30 07:33] LABS: Calcium 8.2 MG/DL (8.5-10.1); Osmolality,Calculated 268.4 MOS/KG (273-304); Potassium 3.2 MMOL/L (3.5-5.1)
[2017-01-30] MEDS: hydroCHLOROthiazide 25 MG TABLET PO SCH (08:33)
[2017-01-30] MEDS: MELOXICAM 7.5 MG TABLET PO SCH (08:33)
[2017-01-30] MEDS: amLODIPine 10 MG TABLET PO SCH (08:33)
[2017-01-30] MEDS: PANTOPRAZOLE 40 MG VIAL IV SCH (08:33)
[2017-01-30] MEDS: INSULIN REGULAR 100 UNIT/ML SUBCUT SCH ×4 (08:34→21:29)
[2017-01-30] MEDS: POTASSIUM CHLORIDE RIDER 10 MEQ in PREMIX 1 EACH IV PRN ×4 (08:40→17:57)
[2017-01-30] MEDS: ENOXAPARIN 40 MG/0.4 ML SYRINGE SUBCUT SCH (16:22)
--- NOTE | 2017-01-30 17:57 | Hospitalist Progress Note ---
Hospitalist: Subjective Interval history: Patient reports some abdominal pain, she was admitted with abdominal pain ileus and obstruction Exam - Constitutional Vitals: Period Temp Pulse Resp BP Sys/Porras Pulse Ox Last 24 Hr 96.9 F-98.7 F 95-108 16-20 123-158/60-80 96-100 Exam: General: [No Acute Distress] HEENT: [Normocephalic, atraumatic, Extra ocular movements intact] Neck: [Supple, No JVD] Chest: [Clear to auscultation B/L] CV: [S1 + S2 audible without murmur, gallop or rub] Abd: [soft, mild abdominal tenderness, no drainage from surgery site, BS +] Ext: [No edema] Skin: [No purpura, bruising or rash] Rheumatologic: [No Joint deformities] Neurologic: [Strength 5/5 all extremities, no gross sensory deficits] Results - Labs CBC & BMP: 01/30/17 04:55 01/30/17 04:55 - Impressions Assessment and Plan: Small bowel obstruction, partial Status: Improving Assessment and plan: s/p Exploratory laparotomy with complete small bowel enteroclysis. Failed conservative management. She is currently tolerating po intake Current Visit: Yes Essential hypertension Status: Chronic Assessment and plan: Controlled, continue meds Current Visit: No Type 2 diabetes mellitus Status: Chronic Assessment and plan: Controlled Current Visit: No Debility Status: Acute Assessment and plan: Continue PT/OT, she will go to a swing bed after discharge Current Visit: Yes
--- NOTE | 2017-01-30 18:44 | XRay Report ---
XR KUB Indication: Abdominal pain. Ileus. Comparison: None. Technique: Supine AP image of the abdomen was obtained. Findings: Lung bases are clear. Enteric contrast is present throughout large bowel. There is no evidence of organomegaly. Bowel gas pattern is unremarkable. Surgical skin clips are noted in the right lower abdomen which may reflect rotation of the panniculus. Additional sutures are noted in the right pelvis. Renal contours are bilaterally symmetric. Bones and soft tissues demonstrate no significant abnormalities. Impression: 1. No active process is demonstrated within the abdomen or pelvis. 01/30/2017 6:41 PM PROCEDURE INTERPRETED AT [facility] DEPARTMENT OF RADIOLOGY Final Report Signed by: Dr. Juan Carlos Auguste
[2017-01-31] MEDS: DEXTROSE 5% NACL 0.45% 1,000 ML IV SCH ×3 (01:11→23:22)
[2017-01-31 05:42] LABS: Calcium 8.2 MG/DL (8.5-10.1); Osmolality,Calculated 274.8 MOS/KG (273-304); Potassium 3.2 MMOL/L (3.5-5.1)
[2017-01-31] MEDS: POTASSIUM CHLORIDE RIDER 10 MEQ in PREMIX 1 EACH IV PRN ×4 (06:40→16:01)
--- NOTE | 2017-01-31 08:18 | Event Note ---
She has no abdominal complaints. She wants to have her skin clips removed. She had a large bowel movement this morning and has no obstructive type symptoms. She is not having nausea or vomiting. Her p.o. at intake is probably adequate. I will leave discharge planning up to you. From a surgical standpoint I feel that her postoperative ileus is resolved and she would be okay for discharge to a swing bed if this is your plan.
[2017-01-31] MEDS: MELOXICAM 7.5 MG TABLET PO SCH (09:23)
[2017-01-31] MEDS: hydroCHLOROthiazide 25 MG TABLET PO SCH (09:23)
[2017-01-31] MEDS: PANTOPRAZOLE 40 MG VIAL IV SCH (09:23)
[2017-01-31] MEDS: amLODIPine 10 MG TABLET PO SCH (09:23)
[2017-01-31] MEDS: INSULIN REGULAR 100 UNIT/ML SUBCUT SCH ×4 (09:24→21:30)
[2017-01-31] MEDS: ENOXAPARIN 40 MG/0.4 ML SYRINGE SUBCUT SCH (16:01)
--- NOTE | 2017-01-31 16:29 | Hospitalist Progress Note ---
Hospitalist: Subjective Interval history: Patient reports abdominal pain better today, she was admitted with abdominal pain ileus and obstruction Exam - Constitutional Vitals: Period Temp Pulse Resp BP Sys/Porras Pulse Ox Last 24 Hr 95.2 F-98.7 F 87-102 16-20 133-141/61-74 96-100 Exam: General: [No Acute Distress] HEENT: [Normocephalic, atraumatic, Extra ocular movements intact] Neck: [Supple, No JVD] Chest: [Clear to auscultation B/L] CV: [S1 + S2 audible without murmur, gallop or rub] Abd: [soft, mild abdominal tenderness, no drainage from surgery site, BS +] Ext: [No edema] Skin: [No purpura, bruising or rash] Rheumatologic: [No Joint deformities] Neurologic: [Strength 5/5 all extremities, no gross sensory deficits] Results - Labs CBC & BMP: 01/30/17 04:55 01/31/17 05:08 - Impressions - Impressions Assessment and Plan: Small bowel obstruction, partial Status: Improving Assessment and plan: s/p Exploratory laparotomy with complete small bowel enteroclysis. Her ileus had resolved and she is moving her bowels Current Visit: Yes Essential hypertension Status: Chronic Assessment and plan: Controlled, continue meds Current Visit: No Type 2 diabetes mellitus Status: Chronic Assessment and plan: Controlled Current Visit: No Debility Status: Acute Assessment and plan: Continue PT/OT, she will go to a swing bed after discharge Current Visit: Yes Discharge plan to swing bed on Friday Specialty Discharge - Follow Up or Referrals
[2017-02-01] MEDS: ONDANSETRON 4 MG/2 ML VIAL IV PRN (02:36)
[2017-02-01] MEDS: hydroCHLOROthiazide 25 MG TABLET PO SCH (09:46)
[2017-02-01] MEDS: PANTOPRAZOLE 40 MG VIAL IV SCH (09:46)
[2017-02-01] MEDS: MELOXICAM 7.5 MG TABLET PO SCH (09:46)
[2017-02-01] MEDS: amLODIPine 10 MG TABLET PO SCH (09:46)
[2017-02-01] MEDS: INSULIN REGULAR 100 UNIT/ML SUBCUT SCH ×4 (09:46→22:25)
[2017-02-01] MEDS: DEXTROSE 5% NACL 0.45% 1,000 ML IV SCH ×2 (09:47→20:31)
[2017-02-01] MEDS: POTASSIUM CHLORIDE 20 MEQ TABLET PO SCH ×2 (09:48→20:33)
--- NOTE | 2017-02-01 16:31 | Hospitalist Progress Note ---
Hospitalist: Subjective Interval history: Patient denies any abdominal pain today, she is moving her bowels Exam - Constitutional Vitals: Period Temp Pulse Resp BP Sys/Porras Pulse Ox Last 24 Hr 97.8 F-98.6 F 86-101 18-20 123-154/59-76 99-100 Exam: General: [No Acute Distress] HEENT: [Normocephalic, atraumatic, Extra ocular movements intact] Neck: [Supple, No JVD] Chest: [Clear to auscultation B/L] CV: [S1 + S2 audible without murmur, gallop or rub] Abd: [soft, mild abdominal tenderness, no drainage from surgery site, BS +] Ext: [No edema] Skin: [No purpura, bruising or rash] Rheumatologic: [No Joint deformities] Neurologic: [Strength 5/5 all extremities, no gross sensory deficits] Results - Labs CBC & BMP: 01/30/17 04:55 01/31/17 20:26 - Impressions Assessment and Plan: Small bowel obstruction, partial/Ileus Status: Resolved Assessment and plan: s/p Exploratory laparotomy with complete small bowel enteroclysis. Her ileus had resolved and she is moving her bowels Current Visit: Yes Essential hypertension Status: Chronic Assessment and plan: Controlled, continue meds Current Visit: No Type 2 diabetes mellitus Status: Chronic Assessment and plan: Controlled Current Visit: No Debility Status: Acute Assessment and plan: Continue PT/OT, she will go to a swing bed after discharge Current Visit: Yes Discharge plan to swing bed on Friday Specialty Discharge - Follow Up or Referrals Follow up with: Kevin Crisostomo III., MD [Physician] - 1 Week
[2017-02-01] MEDS: ENOXAPARIN 40 MG/0.4 ML SYRINGE SUBCUT SCH (16:54)
[2017-02-02] MEDS: ONDANSETRON 4 MG/2 ML VIAL IV PRN ×2 (01:51→19:30)
[2017-02-02] MEDS: DEXTROSE 5% NACL 0.45% 1,000 ML IV SCH ×3 (06:31→21:43)
[2017-02-02] MEDS: INSULIN REGULAR 100 UNIT/ML SUBCUT SCH ×4 (09:25→20:16)
[2017-02-02] MEDS: POTASSIUM CHLORIDE 20 MEQ TABLET PO SCH ×2 (09:26→21:40)
[2017-02-02] MEDS: PANTOPRAZOLE 40 MG VIAL IV SCH (09:26)
[2017-02-02] MEDS: MELOXICAM 7.5 MG TABLET PO SCH (09:26)
[2017-02-02] MEDS: hydroCHLOROthiazide 25 MG TABLET PO SCH (09:26)
[2017-02-02] MEDS: amLODIPine 10 MG TABLET PO SCH (09:26)
--- NOTE | 2017-02-02 16:52 | Hospitalist Progress Note ---
Hospitalist: Subjective Interval history: 81-year-old female with history of ileus patient is doing much better Exam - Constitutional Vitals: Period Temp Pulse Resp BP Sys/Porras Pulse Ox Last 24 Hr 97.3 F-98.8 F 89-97 18-20 128-150/69-76 99-100 Exam: General: [No Acute Distress] HEENT: [Normocephalic, atraumatic, Extra ocular movements intact] Neck: [Supple, No JVD] Chest: [Clear to auscultation B/L] CV: [S1 + S2 audible without murmur, gallop or rub] Abd: [soft, mild abdominal tenderness, no drainage from surgery site, BS +] Ext: [No edema] Skin: [No purpura, bruising or rash] Rheumatologic: [No Joint deformities] Neurologic: [Strength 5/5 all extremities, no gross sensory deficits] Results - Labs CBC & BMP: 01/30/17 04:55 01/31/17 20:26 - Impressions Assessment and Plan: Small bowel obstruction, partial/Ileus Status: Resolved Assessment and plan: s/p Exploratory laparotomy with complete small bowel enteroclysis. Her ileus had resolved and she is moving her bowels Current Visit: Yes Essential hypertension Status: Chronic Assessment and plan: Controlled, continue meds Current Visit: No Type 2 diabetes mellitus Status: Chronic Assessment and plan: Controlled Current Visit: No Debility Status: Acute Assessment and plan: Continue PT/OT, she will go to a swing bed after discharge Current Visit: Yes Discharge plan to swing bed on Friday Specialty Discharge - Follow Up or Referrals Follow up with: Kevin Crisostomo III., MD [Physician] - 1 Week
[2017-02-02] MEDS: ENOXAPARIN 40 MG/0.4 ML SYRINGE SUBCUT SCH (17:52)
[2017-02-03] MEDS: DEXTROSE 5% NACL 0.45% 1,000 ML IV SCH ×2 (02:30→08:41)
[2017-02-03] MEDS: MELOXICAM 7.5 MG TABLET PO SCH (08:40)
[2017-02-03] MEDS: amLODIPine 10 MG TABLET PO SCH (08:41)
[2017-02-03] MEDS: INSULIN REGULAR 100 UNIT/ML SUBCUT SCH ×2 (08:41→11:53)
[2017-02-03] MEDS: PANTOPRAZOLE 40 MG VIAL IV SCH (08:41)
[2017-02-03] MEDS: hydroCHLOROthiazide 25 MG TABLET PO SCH (08:41)
[2017-02-03] MEDS: POTASSIUM CHLORIDE 20 MEQ TABLET PO SCH (08:41)
--- NOTE | 2017-02-03 09:46 | Discharge Summary ---
Hospital Course - Hospital Course Hospital Course: This is a pleasant 81-year-old female that presented to the ED at [facility] on the afternoon of January 19, 2017 for the evaluation of epigastric pain. Patient reported a medical history significant for diabetic neuropathy, arthritis, hypertension, [id number] diabetes mellitus, asthma, bronchitis, recurrent urinary tract infections, myocardial infarction,and chronic obstructive pulmonary disease. Patient reported a surgical history of hysterectomy, right total knee replacement, right eye surgery, and cervical discectomy. Patient reported the onset of symptoms on yesterday around 4 PM. She reported at acute onset of epigastric and abdominal discomfort. She reported episodes of nausea and diarrhea however, denied vomiting, shortness of breath, fever, diaphoresis, and syncope. Her symptoms became unbearable prompting her to present to the ED for further evaluation. She was seen and assessed at the time of ED presentation. Labs were obtained which were remarkable for glucose 196, lactic acid 2.8, albumin 3.2, globulin 3.6, and lipase at 196. Chest x-ray was essentially unremarkable for any acute cardiopulmonary processes. Abdominal x-ray reported primarily constipation of the ascending colon and underlying ileus with scattered air fluid levels noted. CT abdomen and pelvis with contrast reported early or partial small bowel obstruction with dilated upstream small bowel with a transition point right lower quadrant just anterior to the right common iliac artery. The presence of stool and gas was noted in the downstream colon however no pneumatosis or perforation was evident. In addition, fatty infiltration of the liver, and hiatal hernia was noted. A surgery consultation was requested during the ED encounter. The patient was seen and evaluated by Dr. Crisostomo. The patient was seen and evaluated however, due to the severity of the patient's comorbidities the hospitalist service has been requested to facilitate the inpatient admission. After brief discussion with both and Dr. Rodriguez, the patient will be admitted to the hospitalist service for continuation of care. Home medications have been reviewed and reconciled. CODE STATUS discussed; patient is a FULL CODE. The patient was subsequently admitted to the hospitalist service for continuation of care. Aggressive fluid rehydration, protein pump inhibitors, anti-emetics, analgesics , and bowel rest was initiated. A nasogastric tube was inserted at the time of admission to facilitate gastric decompression. The patient's condition improved slightly and the nasogastric tube was discontinued on December. Shortly after nasogastric tube was removed, the patient developed nausea and vomiting. CT abdomen and pelvis reported profound presence of small bowel obstruction. On January 23, 2017, the patient underwent exploratory laparotomy with complete small bowel enteroclysis after conservative management regimen was failed. The patient's condition gradually improved. The patient's condition is stable. She has not experienced any significant overnight events. Today, we feel that she is indeed appropriate for transfer to the swing bed unit at [facility] for continuation of care. Diagnosis - Discharge Diagnosis (1) Small bowel obstruction, partial Status: Resolved Specialty Discharge - Follow Up or Referrals Follow up with: Kevin Crisostomo III., MD [Physician] - 1 Week Discharge Plan - Discharge Medications No Action glipiZIDE [Glipizide] 5 mg PO DAILY Gabapentin Cap/Tab [Neurontin Cap/Tab] 300 mg PO BID metFORMIN [Glucophage] 1,000 mg PO BID W/MEALS amLODIPine [Norvasc] 10 mg PO DAILY Meloxicam [Mobic] 7.5 mg PO DAILY hydroCHLOROthiazide [Hydrochlorothiazide] 25 mg PO DAILY Hydrocodone/Acetaminophen [Pinson 10-325 Tablet] 1 each PO Q6HR PRN PRN Reason: pain - Follow Up or Referral Follow Up: Kevin Crisostomo III., MD [Physician] - 1 Week - Forms/Instructions Instructions: Urinary Tract Infection in Women (DC), Chronic Hypertension (DC) , Bowel Obstruction (DC) Exam - Constitutional Vitals: Period Temp Pulse Resp BP Sys/Porras Pulse Ox Last 24 Hr 96.9 F-97.9 F 88-98 18-19 123-163/52-85 98-100 Discharge Results Labs on day of discharge: Labs from last 24 hours 02/03/17 02/03/17 02/02/17 06:30 01:28 20:16 POC Glucose 212 H 165 H 136 H 02/02/17 02/02/17 02/02/17 17:46 17:03 10:40 POC Glucose 73 L 68 L 161 H 02/02/17 07:47 POC Glucose 207 H DS: Provider Date of admission: 01/19/17 16:26 Primary care physician: . No PCP Attending physician on admission: Sofía Klein Consults: 01/19/17 16:28 Consult to Physician [CONS] Routine Comment: Consulting Provider: Kevin Crisostomo III. When should Consulting Provider be notified: Now Person Notified: MD AWARE Date Notified: 01/20/17 Time Notified: 09:31 01/20/17 10:45 Consult to Dietitian [CONS] Routine Reason for Dietitian: TPN/PPN-Initiate/Manage Consult Comment: Initiate PPN 01/24/17 11:15 Consult to Dietitian [CONS] Routine Reason for Dietitian: TPN/PPN-Initiate/Manage Consult Comment: convert to TPN 01/27/17 09:55 Consult to Occupational Therapy [CONS] Routine Reason for Occupational Therapy: Evaluate and Treat Consult to Physical Therapy [CONS] Routine Reason for Physical Therapy: Evaluate and Treat 01/27/17 10:08 Consult to Case Mgmt/Social Srvs [CONS] Routine Reason for Case Mgmt/Social Srvs: Swingbed/SNF/Assisted 01/28/17 13:41 Consult to Dietitian [CONS] Routine Reason for Dietitian: Diet Recommendations Consult Comment: malnutrition Discharging clinician: Carmella Cash LIFT DRIVER
--- NOTE | 2017-02-03 11:29 | Discharge Summary ---
Hospital Course - Hospital Course Hospital Course: This is a pleasant 81-year-old female that presented to the ED at [facility] on the afternoon of January 19, 2017 for the evaluation of epigastric pain. Patient reported a medical history significant for diabetic neuropathy, arthritis, hypertension, [id number] diabetes mellitus, asthma, bronchitis, recurrent urinary tract infections, myocardial infarction,and chronic obstructive pulmonary disease. Patient reported a surgical history of hysterectomy, right total knee replacement, right eye surgery, and cervical discectomy. Patient reported the onset of symptoms on yesterday around 4 PM. She reported at acute onset of epigastric and abdominal discomfort. She reported episodes of nausea and diarrhea however, denied vomiting, shortness of breath, fever, diaphoresis, and syncope. Her symptoms became unbearable prompting her to present to the ED for further evaluation. She was seen and assessed at the time of ED presentation. Labs were obtained which were remarkable for glucose 196, lactic acid 2.8, albumin 3.2, globulin 3.6, and lipase at 196. Chest x-ray was essentially unremarkable for any acute cardiopulmonary processes. Abdominal x-ray reported primarily constipation of the ascending colon and underlying ileus with scattered air fluid levels noted. CT abdomen and pelvis with contrast reported early or partial small bowel obstruction with dilated upstream small bowel with a transition point right lower quadrant just anterior to the right common iliac artery. The presence of stool and gas was noted in the downstream colon however no pneumatosis or perforation was evident. In addition, fatty infiltration of the liver, and hiatal hernia was noted. A surgery consultation was requested during the ED encounter. The patient was seen and evaluated by Dr. Crisostomo. The patient was seen and evaluated however, due to the severity of the patient's comorbidities the hospitalist service has been requested to facilitate the inpatient admission. After brief discussion with both and Dr. Rodriguez, the patient will be admitted to the hospitalist service for continuation of care. Home medications have been reviewed and reconciled. CODE STATUS discussed; patient is a FULL CODE. The patient was subsequently admitted to the hospitalist service for continuation of care. Aggressive fluid rehydration, protein pump inhibitors, anti-emetics, analgesics , and bowel rest was initiated. A nasogastric tube was inserted at the time of admission to facilitate gastric decompression. The patient's condition improved slightly and the nasogastric tube was discontinued on December. Shortly after nasogastric tube was removed, the patient developed nausea and vomiting. CT abdomen and pelvis reported profound presence of small bowel obstruction. On January 23, 2017, the patient underwent exploratory laparotomy with complete small bowel enteroclysis after conservative management regimen was failed. The patient's condition gradually improved. The patient's condition is stable. She has not experienced any significant overnight events. Today, we feel that she is indeed appropriate for transfer to the swing bed unit at [facility] for continuation of care. - Time spent with patient Time with patient DS: Greater than 30 minutes Diagnosis - Discharge Diagnosis (1) Small bowel obstruction, partial Status: Resolved Specialty Discharge - Follow Up or Referrals Follow up with: Kevin Crisostomo III., MD [Physician] - 1 Week Discharge Plan - Discharge Data Disposition: Swing Bed, [facility], [facility] Condition at Discharge: Stable Discharge Diet: diabetic diet Activity: as per physical therapy Hygiene: no restrictions Weight Bearing at Discharge: full weight bearing Driving: no restrictions Contact your physician if you experience:: Nausea/Vomiting, pain uncontrolled by pain medications - Discharge Medications New Insulin Regular [HumuLIN R] See Protocol SUBCUT ACHS unit Continue Gabapentin Cap/Tab [Neurontin Cap/Tab] 300 mg PO BID metFORMIN [Glucophage] 1,000 mg PO BID W/MEALS amLODIPine [Norvasc] 10 mg PO DAILY Meloxicam [Mobic] 7.5 mg PO DAILY hydroCHLOROthiazide [Hydrochlorothiazide] 25 mg PO DAILY Discontinued glipiZIDE [Glipizide] 5 mg PO DAILY Hydrocodone/Acetaminophen [Kamrar 10-325 Tablet] 1 each PO Q6HR PRN PRN Reason: pain - Follow Up or Referral Follow Up: Kevin Crisostomo III., MD [Physician] - 1 Week - Forms/Instructions Instructions: Urinary Tract Infection in Women (DC), Chronic Hypertension (DC) , Bowel Obstruction (DC) Exam - Constitutional Vitals: Period Temp Pulse Resp BP Sys/Porras Pulse Ox Last 24 Hr 96.9 F-97.9 F 88-98 18-19 123-163/52-85 98-100 Exam: General: No Acute Distress HEENT: Normocephalic, atraumatic, Extra ocular movements intact Neck: Supple, No JVD Chest: Clear to auscultation B/L CV: S1 + S2 audible without murmur, gallop or rub Abd: soft, NT, Non-distended, BS + Ext: No edema Skin: No purpura, bruising or rash Rheumatologic: No Joint deformities Neurologic: Strength 5/5 all extremities, no gross sensory deficits Discharge Results Labs on day of discharge: Labs from last 24 hours 02/03/17 02/03/17 02/02/17 06:30 01:28 20:16 POC Glucose 212 H 165 H 136 H 02/02/17 02/02/17 02/02/17 17:46 17:03 07:47 POC Glucose 73 L 68 L 207 H DS: Provider Date of admission: 01/19/17 16:26 Primary care physician: . No PCP Attending physician on admission: Sofía Klein Consults: 01/19/17 16:28 Consult to Physician [CONS] Routine Comment: Consulting Provider: Kevin Crisostomo III. When should Consulting Provider be notified: Now Person Notified: MD LYONS Date Notified: 01/20/17 Time Notified: 09:31 01/20/17 10:45 Consult to Dietitian [CONS] Routine Reason for Dietitian: TPN/PPN-Initiate/Manage Consult Comment: Initiate PPN 01/24/17 11:15 Consult to Dietitian [CONS] Routine Reason for Dietitian: TPN/PPN-Initiate/Manage Consult Comment: convert to TPN 01/27/17 09:55 Consult to Occupational Therapy [CONS] Routine Reason for Occupational Therapy: Evaluate and Treat Consult to Physical Therapy [CONS] Routine Reason for Physical Therapy: Evaluate and Treat 01/27/17 10:08 Consult to Case Mgmt/Social Srvs [CONS] Routine Reason for Case Mgmt/Social Srvs: Swingbed/SNF/Prison 01/28/17 13:41 Consult to Dietitian [CONS] Routine Reason for Dietitian: Diet Recommendations Consult Comment: malnutrition Discharging clinician: Gerard Hernandez MD
[2017-02-03 12:15] VITALS: BP 139/71
== END 2017-02-03 12:15 | disposition swing bed (61) | DRG 335 ==
LOC: N.ED 10:42 → SUATTDRO 16:26 → N.EDINP 16:26 → N.5E 17:08 → N.ICU 01-23 13:08 → N.5E 01-24 18:03
PROVIDERS: ADMIT Hospitalist; ATTEND Hospitalist

== ENCOUNTER 2017-09-15 19:37 | Inpatient (IN) ==
[2017-09-15] MEDS ORDERED: HYDROmorphone 2 MG/1 ML VIAL IV STA (20:37)
[2017-09-15] MEDS ORDERED: SODIUM CHLORIDE 0.9% 500 ML IV STA (20:37)
[2017-09-15] MEDS ORDERED: ALUM/MAG/SIMETH/LIDO VISC 1:1 30 ML BOTTLE PO STA (20:37)
[2017-09-15] MEDS ORDERED: ONDANSETRON 4 MG/2 ML VIAL IV STA (20:37)
[2017-09-15] MEDS ORDERED: PANTOPRAZOLE 40 MG VIAL IV STA (20:37)
[2017-09-15] MEDS ORDERED: PANTOPRAZOLE 40 MG VIAL IV ONE (20:51)
[2017-09-15] MEDS ORDERED: HYDROmorphone 2 MG/1 ML VIAL ONE (20:51)
[2017-09-15] MEDS ORDERED: ALUM/MAG/SIMETH/LIDO VISC 1:1 30 ML BOTTLE PO ONE (20:51)
[2017-09-15] MEDS ORDERED: ONDANSETRON 4 MG/2 ML VIAL ONE (20:51)
[2017-09-15 21:25] LABS: Basophils % 0.2 % (0.0-0.8); Eosinophils % 0.4 % (0.00-10.9); Hematocrit 39.2 VOL% (35.7-47.0); Hemoglobin 12.3 GM/DL (12.0-16.0); Immature Granulocytes % 0.4 %; Immature Granulocytes Absolute 0.03 #; Lymphocytes % 11.9 % (21.3-54.2); Mean Corpuscular HGB Conc 31.4 GM/DL (32-36); Mean Corpuscular Hemoglobin 30 PG (27-34); Mean Corpuscular Volume 94.5 FL (87-102); Mean Platelet Volume 10.8 FL (9.6-12.0); Monocytes # 0.6 10*3/uL (0.11-0.8); Monocytes % 7.2 % (1.7-12.7); Neutrophils # 6.7 10*3/uL (1.4-7.4); Neutrophils % 79.9 % (38.7-73.9); Platelet Count 276 T/CUMM (130-400); Red Blood Count 4.15 MC/CUMM (3.8-5.5); Red Cell Distribution Width 13.6 % (9.3-17.3); White Blood Count 8.4 T/CUMM (4-12)
[2017-09-15 21:47] LABS: Alanine Aminotransferase 47 U/L (13-56); Albumin 3.2 G/DL (3.4-5.0); Alkaline Phosphatase 111 U/L (45-117); Amylase 89 U/L (25-115); Aspartate Amino Transferase 95 U/L (0-37); Blood Urea Nitrogen 9 MG/DL (7-18); Calcium 8.7 MG/DL (8.5-10.1); Glucose 153 MG/DL (74-106); Osmolality,Calculated 280.4 MOS/KG (273-304); Potassium 3.8 MMOL/L (3.5-5.1); Sodium 140 MMOL/L (136-145); Total Protein 7.4 G/DL (6.4-8.3); Troponin I Only < 0.015 NG/ML (0.00-0.045)
[2017-09-15 21:56] LABS: Lactic Acid 2.4 MMOL/L (0.4-2.0)
[2017-09-16] MEDS ORDERED: ACETAMINOPHEN 325 MG TABLET PO PRN (02:11)
[2017-09-16] MEDS ORDERED: DEXTROSE 50% 25 GM/50 ML VIAL IV PRN (02:11)
[2017-09-16] MEDS ORDERED: ONDANSETRON 4 MG/2 ML VIAL IV PRN (02:11)
[2017-09-16] MEDS ORDERED: GLUCAGON 1 MG VIAL IM PRN (02:11)
[2017-09-16] MEDS: CIPROFLOXACIN INJ 400 MG in PREMIX 1 EACH IV SCH ×2 (02:47→15:11)
[2017-09-16] MEDS: SODIUM CHLORIDE 0.9% 1,000 ML IV SCH ×3 (02:47→18:10)
[2017-09-16] MEDS: HYDROmorphone 2 MG/1 ML VIAL IV PRN ×2 (03:30→12:37)
[2017-09-16 03:37] LABS: Apearance,Urine Slightly Hazy (Clear); Bilirubin,Urine Negative (Negative); Blood, Urine Negative (Negative); Glucose,Urine (UA) Negative (Negative); Ketones,Urine Negative (Negative); Mucus,Urine Occasional /LPF (Occasional); Nitrite,Urine Negative (Negative); Protein,Urine Negative; RBC,Urine 1 /HPF (0-4); Squamous Epithelial Cell,Urine Occasional /HPF (0-10); Urine Color Yellow (Yellow); Urine Specific Gravity 1.031 (1.001-1.035); WBC,Urine 4 /HPF (0-6)
[2017-09-16] MEDS: metroNIDAZOLE INJ 500 MG in PREMIX 1 EACH IV SCH ×3 (05:10→21:13)
[2017-09-16 09:25] LABS: Basophils % 0.1 % (0.0-0.8); Hematocrit 39.8 VOL% (35.7-47.0); Hemoglobin 12.8 GM/DL (12.0-16.0); Immature Granulocytes % 0.3 %; Immature Granulocytes Absolute 0.03 #; Lymphocytes # 0.3 10*3/uL (1.4-4.0); Lymphocytes % 3.6 % (21.3-54.2); Mean Corpuscular HGB Conc 32.2 GM/DL (32-36); Mean Corpuscular Hemoglobin 30 PG (27-34); Mean Corpuscular Volume 93.9 FL (87-102); Mean Platelet Volume 10.7 FL (9.6-12.0); Monocytes # 1.1 10*3/uL (0.11-0.8); Monocytes % 11.8 % (1.7-12.7); Neutrophils # 7.5 10*3/uL (1.4-7.4); Neutrophils % 84.2 % (38.7-73.9); Platelet Count 260 T/CUMM (130-400); Red Blood Count 4.24 MC/CUMM (3.8-5.5); Red Cell Distribution Width 13.6 % (9.3-17.3); White Blood Count 8.9 T/CUMM (4-12)
[2017-09-16] MEDS: INSULIN REGULAR 100 UNIT/ML SUBCUT SCH ×4 (09:44→21:23)
[2017-09-16] MEDS: metFORMIN 500 MG TABLET PO SCH ×2 (09:45→18:09)
[2017-09-16 09:46] LABS: Giant Platelets Few; Hypochromasia 1+; Lymphocytes 5 % (20-55); Platelet Estimate Adequate; Segmented Neutrophils 80 % (50-85); Total Cells Counted 100
[2017-09-16 09:58] LABS: Albumin 3.3 G/DL (3.4-5.0); Bilirubin,Total 2.5 MG/DL (0.2-1.0); Calcium 8.8 MG/DL (8.5-10.1); Osmolality,Calculated 273.8 MOS/KG (273-304); Potassium 3.8 MMOL/L (3.5-5.1); Total Protein 6.9 G/DL (6.4-8.3)
[2017-09-16] MEDS: PANTOPRAZOLE 40 MG VIAL IV SCH (10:47)
[2017-09-16] MEDS: BRIMONIDINE 0.15% OPH SOLN 1 DROP/DROPS BOTTLE BOTH EYES SCH ×2 (10:52→21:11)
[2017-09-16] MEDS ORDERED: DIAZEPAM 5 MG TABLET PO ONE (11:58)
[2017-09-16] MEDS: hydroCHLOROthiazide 25 MG TABLET PO SCH (18:08)
[2017-09-16] MEDS: GABAPENTIN 300 MG CAPSULE PO SCH (18:09)
[2017-09-16] MEDS: MELOXICAM 7.5 MG TABLET PO SCH (18:09)
[2017-09-16] MEDS: amLODIPine 10 MG TABLET PO SCH (18:09)
[2017-09-16] MEDS: GABAPENTIN 600 MG TABLET PO SCH (21:16)
[2017-09-17] MEDS: CIPROFLOXACIN INJ 400 MG in PREMIX 1 EACH IV SCH ×2 (02:52→17:54)
[2017-09-17] MEDS: metroNIDAZOLE INJ 500 MG in PREMIX 1 EACH IV SCH ×3 (05:22→20:32)
[2017-09-17] MEDS: SODIUM CHLORIDE 0.9% 1,000 ML IV SCH ×2 (05:53→12:50)
[2017-09-17 06:21] LABS: Basophils % 0.1 % (0.0-0.8); Hematocrit 36.3 VOL% (35.7-47.0); Hemoglobin 11.8 GM/DL (12.0-16.0); Immature Granulocytes % 0.5 %; Immature Granulocytes Absolute 0.04 #; Lymphocytes # 0.7 10*3/uL (1.4-4.0); Lymphocytes % 8.4 % (21.3-54.2); Mean Corpuscular HGB Conc 32.5 GM/DL (32-36); Mean Corpuscular Hemoglobin 30 PG (27-34); Mean Corpuscular Volume 93.6 FL (87-102); Mean Platelet Volume 10.7 FL (9.6-12.0); Monocytes # 0.9 10*3/uL (0.11-0.8); Monocytes % 10.9 % (1.7-12.7); Neutrophils # 6.6 10*3/uL (1.4-7.4); Neutrophils % 80.1 % (38.7-73.9); Platelet Count 252 T/CUMM (130-400); Red Blood Count 3.88 MC/CUMM (3.8-5.5); Red Cell Distribution Width 13.6 % (9.3-17.3); White Blood Count 8.2 T/CUMM (4-12)
[2017-09-17 06:46] LABS: Albumin 2.9 G/DL (3.4-5.0); Bilirubin,Total 2.4 MG/DL (0.2-1.0); Calcium 8.4 MG/DL (8.5-10.1); Osmolality,Calculated 282.3 MOS/KG (273-304); Potassium 3.6 MMOL/L (3.5-5.1); Total Protein 6.2 G/DL (6.4-8.3)
[2017-09-17] MEDS: INSULIN REGULAR 100 UNIT/ML SUBCUT SCH ×4 (08:50→20:29)
[2017-09-17] MEDS: PANTOPRAZOLE 40 MG VIAL IV SCH (09:14)
[2017-09-17] MEDS: metFORMIN 500 MG TABLET PO SCH ×2 (09:18→17:55)
[2017-09-17] MEDS: GABAPENTIN 300 MG CAPSULE PO SCH (09:18)
[2017-09-17] MEDS: BRIMONIDINE 0.15% OPH SOLN 1 DROP/DROPS BOTTLE BOTH EYES SCH ×2 (09:18→20:34)
[2017-09-17] MEDS: hydroCHLOROthiazide 25 MG TABLET PO SCH (09:19)
[2017-09-17] MEDS: amLODIPine 10 MG TABLET PO SCH (09:24)
[2017-09-17] MEDS: MELOXICAM 7.5 MG TABLET PO SCH (09:24)
[2017-09-17] MEDS ORDERED: ALBUTEROL/IPRATROPIUM 3 ML NEB RESP TX PRN (11:17)
[2017-09-17] MEDS: GABAPENTIN 600 MG TABLET PO SCH (20:34)
[2017-09-18] MEDS: CIPROFLOXACIN INJ 400 MG in PREMIX 1 EACH IV SCH ×2 (01:20→16:51)
[2017-09-18] MEDS: metroNIDAZOLE INJ 500 MG in PREMIX 1 EACH IV SCH ×3 (04:45→20:31)
[2017-09-18 04:57] LABS: Basophils % 0.3 % (0.0-0.8); Eosinophils # 0.2 10*3/uL (0.0-0.87); Eosinophils % 2.8 % (0.00-10.9); Hemoglobin 11.7 GM/DL (12.0-16.0); Immature Granulocytes % 0.4 %; Immature Granulocytes Absolute 0.03 #; Lymphocytes % 14.5 % (21.3-54.2); Mean Corpuscular HGB Conc 31.6 GM/DL (32-36); Mean Corpuscular Hemoglobin 30 PG (27-34); Mean Corpuscular Volume 93.4 FL (87-102); Mean Platelet Volume 10.9 FL (9.6-12.0); Monocytes # 0.9 10*3/uL (0.11-0.8); Monocytes % 13.1 % (1.7-12.7); Neutrophils # 4.7 10*3/uL (1.4-7.4); Neutrophils % 68.9 % (38.7-73.9); Platelet Count 243 T/CUMM (130-400); Red Blood Count 3.96 MC/CUMM (3.8-5.5); Red Cell Distribution Width 13.7 % (9.3-17.3); White Blood Count 6.8 T/CUMM (4-12)
[2017-09-18 05:30] LABS: Albumin 2.8 G/DL (3.4-5.0); Calcium 8.6 MG/DL (8.5-10.1); Osmolality,Calculated 281.1 MOS/KG (273-304); Potassium 3.6 MMOL/L (3.5-5.1); Total Protein 6.1 G/DL (6.4-8.3)
[2017-09-18] MEDS ORDERED: ASPIRIN CHEW 81 MG TABLET PO ONE (08:18)
[2017-09-18] MEDS ORDERED: NITROGLYCERIN SL 0.4 MG TABLET SL PRN (08:18)
[2017-09-18] MEDS ORDERED: ALUM/MAG/SIMETH/LIDO VISC 1:1 30 ML BOTTLE PO STA (08:28)
[2017-09-18] MEDS ORDERED: ASPIRIN 325 MG TABLET ONE (08:36)
[2017-09-18 08:37] LABS: Basophils % 0.1 % (0.0-0.8); Eosinophils # 0.2 10*3/uL (0.0-0.87); Eosinophils % 2.8 % (0.00-10.9); Hematocrit 36.6 VOL% (35.7-47.0); Hemoglobin 11.8 GM/DL (12.0-16.0); Immature Granulocytes % 0.4 %; Immature Granulocytes Absolute 0.03 #; Lymphocytes # 1.3 10*3/uL (1.4-4.0); Lymphocytes % 17.7 % (21.3-54.2); Mean Corpuscular HGB Conc 32.2 GM/DL (32-36); Mean Corpuscular Hemoglobin 30 PG (27-34); Mean Corpuscular Volume 92.4 FL (87-102); Mean Platelet Volume 10.8 FL (9.6-12.0); Monocytes # 1.1 10*3/uL (0.11-0.8); Monocytes % 15.1 % (1.7-12.7); Neutrophils # 4.7 10*3/uL (1.4-7.4); Neutrophils % 63.9 % (38.7-73.9); Platelet Count 245 T/CUMM (130-400); Red Blood Count 3.96 MC/CUMM (3.8-5.5); Red Cell Distribution Width 13.7 % (9.3-17.3); White Blood Count 7.4 T/CUMM (4-12)
[2017-09-18] MEDS: INSULIN REGULAR 100 UNIT/ML SUBCUT SCH ×4 (08:38→20:34)
[2017-09-18] MEDS ORDERED: ALUM/MAG/SIMETH/LIDO VISC 1:1 30 ML BOTTLE PO ONE (08:46)
[2017-09-18 09:20] LABS: Alanine Aminotransferase 94 U/L (13-56); Albumin 2.6 G/DL (3.4-5.0); Alkaline Phosphatase 139 U/L (45-117); Aspartate Amino Transferase 41 U/L (0-37); Blood Urea Nitrogen 7 MG/DL (7-18); Calcium 8.7 MG/DL (8.5-10.1); Glucose 131 MG/DL (74-106); Osmolality,Calculated 280.3 MOS/KG (273-304); Potassium 3.2 MMOL/L (3.5-5.1); Sodium 141 MMOL/L (136-145); Total Protein 6.6 G/DL (6.4-8.3); Troponin I Only < 0.015 NG/ML (0.00-0.045)
[2017-09-18] MEDS: PANTOPRAZOLE 40 MG VIAL IV SCH (09:26)
[2017-09-18] MEDS: BRIMONIDINE 0.15% OPH SOLN 1 DROP/DROPS BOTTLE BOTH EYES SCH ×2 (10:12→20:32)
[2017-09-18] MEDS: hydroCHLOROthiazide 25 MG TABLET PO SCH (10:12)
[2017-09-18] MEDS: MELOXICAM 7.5 MG TABLET PO SCH (10:13)
[2017-09-18] MEDS: amLODIPine 10 MG TABLET PO SCH (10:13)
[2017-09-18] MEDS: GABAPENTIN 300 MG CAPSULE PO SCH (10:14)
[2017-09-18] MEDS: ENOXAPARIN 40 MG/0.4 ML SYRINGE SUBCUT SCH (10:22)
[2017-09-18] MEDS ORDERED: MAGNESIUM SULF RIDER 2 GM in PREMIX 1 EACH IV PRN (10:35)
[2017-09-18] MEDS ORDERED: MAGNESIUM SULF RIDER 4 GM in PREMIX 1 EACH IV PRN (10:35)
[2017-09-18] MEDS ORDERED: POTASSIUM CHLORIDE 20 MEQ TABLET PO ONE (10:44)
[2017-09-18] MEDS: metFORMIN 500 MG TABLET PO SCH (11:05)
[2017-09-18] MEDS: POTASSIUM CHLORIDE 20 MEQ TABLET PO PRN ×2 (20:31→23:00)
[2017-09-18] MEDS: GABAPENTIN 600 MG TABLET PO SCH (20:32)
[2017-09-19] MEDS: CIPROFLOXACIN INJ 400 MG in PREMIX 1 EACH IV SCH (02:58)
[2017-09-19] MEDS: POTASSIUM CHLORIDE 20 MEQ TABLET PO PRN (03:25)
[2017-09-19] MEDS: metroNIDAZOLE INJ 500 MG in PREMIX 1 EACH IV SCH ×2 (04:46→13:47)
[2017-09-19 05:01] LABS: Basophils % 0.3 % (0.0-0.8); Eosinophils # 0.3 10*3/uL (0.0-0.87); Eosinophils % 4.8 % (0.00-10.9); Hematocrit 37.1 VOL% (35.7-47.0); Immature Granulocytes % 0.6 %; Immature Granulocytes Absolute 0.04 #; Lymphocytes % 14.1 % (21.3-54.2); Mean Corpuscular HGB Conc 32.3 GM/DL (32-36); Mean Corpuscular Hemoglobin 29 PG (27-34); Mean Corpuscular Volume 90.9 FL (87-102); Mean Platelet Volume 11.2 FL (9.6-12.0); Neutrophils # 4.5 10*3/uL (1.4-7.4); Neutrophils % 65.2 % (38.7-73.9); Platelet Count 266 T/CUMM (130-400); Red Blood Count 4.08 MC/CUMM (3.8-5.5); Red Cell Distribution Width 13.8 % (9.3-17.3); White Blood Count 6.9 T/CUMM (4-12)
[2017-09-19 05:50] LABS: Albumin 2.8 G/DL (3.4-5.0); Bilirubin,Total 0.9 MG/DL (0.2-1.0); Calcium 8.9 MG/DL (8.5-10.1); Osmolality,Calculated 276.5 MOS/KG (273-304); Potassium 4.5 MMOL/L (3.5-5.1); Total Protein 6.2 G/DL (6.4-8.3)
[2017-09-19] MEDS: INSULIN REGULAR 100 UNIT/ML SUBCUT SCH ×2 (06:50→12:07)
[2017-09-19] MEDS: PANTOPRAZOLE 40 MG VIAL IV SCH (08:53)
[2017-09-19] MEDS: BRIMONIDINE 0.15% OPH SOLN 1 DROP/DROPS BOTTLE BOTH EYES SCH (09:42)
[2017-09-19] MEDS: hydroCHLOROthiazide 25 MG TABLET PO SCH (09:51)
[2017-09-19] MEDS: amLODIPine 10 MG TABLET PO SCH (09:52)
[2017-09-19] MEDS: GABAPENTIN 300 MG CAPSULE PO SCH (09:52)
[2017-09-19] MEDS: MELOXICAM 7.5 MG TABLET PO SCH (09:52)
[2017-09-19] MEDS: ENOXAPARIN 40 MG/0.4 ML SYRINGE SUBCUT SCH (09:58)
[2017-09-19 10:57] VITALS: BP 129/65
== END 2017-09-19 13:47 | disposition home health service (06) | DRG 446 ==
LOC: EDUNIT# → EDBD → N.ED 19:37 → N.EDINP 09-16 00:21 → N.3E 09-16 01:11
PROVIDERS: ADMIT Surgery; ATTEND Surgery

== ENCOUNTER 2017-10-07 21:57 | Inpatient (IN) ==
[2017-10-07] MEDS ORDERED: SODIUM CHLORIDE 0.9% 1,000 ML IV STA (23:14)
[2017-10-07] MEDS ORDERED: ONDANSETRON 4 MG/2 ML VIAL IV STA (23:14)
[2017-10-08 00:09] LABS: Basophils % 0.5 % (0.0-0.8); Eosinophils % 0.1 % (0.00-10.9); Hemoglobin 14.6 GM/DL (12.0-16.0); Immature Granulocytes % 0.4 %; Immature Granulocytes Absolute 0.03 #; Lymphocytes # 1.2 10*3/uL (1.4-4.0); Lymphocytes % 14.8 % (21.3-54.2); Mean Corpuscular HGB Conc 33.2 GM/DL (32-36); Mean Corpuscular Hemoglobin 30 PG (27-34); Mean Corpuscular Volume 90.2 FL (87-102); Mean Platelet Volume 10.8 FL (9.6-12.0); Monocytes # 0.7 10*3/uL (0.11-0.8); Monocytes % 9.2 % (1.7-12.7); Neutrophils # 5.9 10*3/uL (1.4-7.4); Platelet Count 385 T/CUMM (130-400); Red Blood Count 4.88 MC/CUMM (3.8-5.5); Red Cell Distribution Width 12.7 % (9.3-17.3); White Blood Count 7.9 T/CUMM (4-12)
[2017-10-08 00:28] LABS: Lactic Acid 1.5 MMOL/L (0.4-2.0)
[2017-10-08 00:37] LABS: Alanine Aminotransferase 15 U/L (13-56); Albumin 3.5 G/DL (3.4-5.0); Alkaline Phosphatase 87 U/L (45-117); Aspartate Amino Transferase 12 U/L (0-37); Blood Urea Nitrogen 31 MG/DL (7-18); Calcium 8.8 MG/DL (8.5-10.1); Glucose 150 MG/DL (74-106); Osmolality,Calculated 273.5 MOS/KG (273-304); Potassium 4.6 MMOL/L (3.5-5.1); Sodium 132 MMOL/L (136-145); Total Protein 7.9 G/DL (6.4-8.3); Troponin I Only < 0.015 NG/ML (0.00-0.045)
[2017-10-08] MEDS ORDERED: KETOROLAC 30 MG/1 ML VIAL IV STA (01:07)
[2017-10-08] MEDS ORDERED: SODIUM CHLORIDE 0.9% 1,000 ML IV STA (01:08)
[2017-10-08] MEDS ORDERED: KETOROLAC 30 MG/1 ML VIAL ONE (01:38)
[2017-10-08] MEDS ORDERED: ONDANSETRON 4 MG/2 ML VIAL IV PRN (02:47)
[2017-10-08] MEDS ORDERED: MORPHINE 4 MG/1 ML VIAL IV PRN (02:47)
[2017-10-08] MEDS ORDERED: ACETAMINOPHEN 325 MG TABLET PO PRN (02:47)
[2017-10-08 05:28] LABS: Basophils # 0.1 10*3/uL (0.0-0.2); Basophils % 0.8 % (0.0-0.8); Eosinophils % 0.4 % (0.00-10.9); Hematocrit 39.4 VOL% (35.7-47.0); Hemoglobin 13.5 GM/DL (12.0-16.0); Immature Granulocytes % 0.3 %; Immature Granulocytes Absolute 0.02 #; Lymphocytes # 1.6 10*3/uL (1.4-4.0); Lymphocytes % 20.5 % (21.3-54.2); Mean Corpuscular HGB Conc 34.3 GM/DL (32-36); Mean Corpuscular Hemoglobin 30 PG (27-34); Mean Corpuscular Volume 88.1 FL (87-102); Mean Platelet Volume 11.2 FL (9.6-12.0); Neutrophils # 5.2 10*3/uL (1.4-7.4); Platelet Count 354 T/CUMM (130-400); Red Blood Count 4.47 MC/CUMM (3.8-5.5); Red Cell Distribution Width 12.9 % (9.3-17.3)
[2017-10-08 06:04] LABS: Albumin 3.4 G/DL (3.4-5.0); Bilirubin,Total 0.9 MG/DL (0.2-1.0); Calcium 8.6 MG/DL (8.5-10.1); Osmolality,Calculated 275.4 MOS/KG (273-304); Potassium 4.8 MMOL/L (3.5-5.1); Total Protein 6.8 G/DL (6.4-8.3)
[2017-10-08] MEDS: BRIMONIDINE 0.15% OPH SOLN 1 DROP/DROPS BOTTLE BOTH EYES SCH ×2 (11:10→21:21)
[2017-10-08] MEDS: SODIUM CHLORIDE 0.9% 1,000 ML IV SCH ×3 (11:12→21:20)
[2017-10-08] MEDS: amLODIPine 10 MG TABLET PO SCH ×2 (14:40→19:06)
[2017-10-08] MEDS: metroNIDAZOLE 500 MG TABLET PO SCH ×3 (14:40→15:55)
[2017-10-08] MEDS: CIPROFLOXACIN 500 MG TABLET PO SCH ×2 (14:40→14:58)
[2017-10-08] MEDS: GABAPENTIN 300 MG CAPSULE PO SCH (14:41)
[2017-10-08] MEDS: PANTOPRAZOLE 40 MG TABLET PO SCH (14:41)
[2017-10-08] MEDS: MEROPENEM 1,000 MG in SYRINGE 1 EACH IV SCH (14:41)
[2017-10-08] MEDS: INSULIN LISPRO 100 UNIT/ML SUBCUT SCH ×2 (16:15→21:22)
[2017-10-08] MEDS ORDERED: INSULIN REGULAR 100 UNIT/ML SUBCUT SCH (16:30)
[2017-10-08] MEDS ORDERED: METOCLOPRAMIDE 10 MG/10 ML UDCUP PO SCH (18:00)
[2017-10-08] MEDS ORDERED: GABAPENTIN 600 MG TABLET PO SCH (21:00)
[2017-10-09] MEDS: MEROPENEM 1,000 MG in SYRINGE 1 EACH IV SCH ×2 (03:25→15:50)
[2017-10-09] MEDS: SODIUM CHLORIDE 0.9% 1,000 ML IV SCH ×3 (05:08→21:59)
[2017-10-09 06:01] LABS: Basophils # 0.1 10*3/uL (0.0-0.2); Basophils % 0.9 % (0.0-0.8); Eosinophils # 0.1 10*3/uL (0.0-0.87); Eosinophils % 1.5 % (0.00-10.9); Hematocrit 38.5 VOL% (35.7-47.0); Hemoglobin 12.3 GM/DL (12.0-16.0); Immature Granulocytes % 0.3 %; Immature Granulocytes Absolute 0.02 #; Lymphocytes # 0.8 10*3/uL (1.4-4.0); Lymphocytes % 11.7 % (21.3-54.2); Mean Corpuscular HGB Conc 31.9 GM/DL (32-36); Mean Corpuscular Hemoglobin 29 PG (27-34); Mean Corpuscular Volume 91.9 FL (87-102); Mean Platelet Volume 11.2 FL (9.6-12.0); Monocytes # 1.2 10*3/uL (0.11-0.8); Monocytes % 16.9 % (1.7-12.7); Neutrophils # 4.7 10*3/uL (1.4-7.4); Neutrophils % 68.7 % (38.7-73.9); Platelet Count 315 T/CUMM (130-400); Red Blood Count 4.19 MC/CUMM (3.8-5.5); Red Cell Distribution Width 13.1 % (9.3-17.3); White Blood Count 6.9 T/CUMM (4-12)
[2017-10-09 06:31] LABS: Albumin 3.1 G/DL (3.4-5.0); Bilirubin,Direct 0.29 MG/DL (0.0-0.20); Bilirubin,Indirect 0.4 MG/DL (0.0-1.0); Bilirubin,Total 0.7 MG/DL (0.2-1.0); Total Protein 6.2 G/DL (6.4-8.3)
[2017-10-09 06:42] LABS: Eosinophils 2 % (0-10); Lymphocytes 16 % (20-55); Nucleated Red Blood Cells 1 (0-5); Segmented Neutrophils 74 % (50-85); Total Cells Counted 100
[2017-10-09 06:43] LABS: Platelet Estimate Adequate
[2017-10-09 07:55] LABS: Calcium 8.6 MG/DL (8.5-10.1); Osmolality,Calculated 281.8 MOS/KG (273-304); Potassium 4.4 MMOL/L (3.5-5.1)
[2017-10-09] MEDS: INSULIN LISPRO 100 UNIT/ML SUBCUT SCH ×4 (09:01→21:59)
[2017-10-09] MEDS: PANTOPRAZOLE 40 MG TABLET PO SCH (09:55)
[2017-10-09] MEDS: GABAPENTIN 300 MG CAPSULE PO SCH (09:55)
[2017-10-09] MEDS: amLODIPine 10 MG TABLET PO SCH ×2 (09:55→09:58)
[2017-10-09] MEDS: BRIMONIDINE 0.15% OPH SOLN 1 DROP/DROPS BOTTLE BOTH EYES SCH ×2 (09:56→21:59)
[2017-10-09] MEDS ORDERED: FUROSEMIDE 40 MG/4 ML VIAL IV ONE (10:57)
[2017-10-09] MEDS: LEVOFLOXACIN INJ 500 MG in PREMIX 1 EACH IV SCH (12:36)
[2017-10-09 17:35] LABS: Apearance,Urine CLEAR (Clear); Bilirubin,Urine Negative (Negative); Blood, Urine Small mg/dL (Negative); Glucose,Urine (UA) Negative (Negative); Hyaline Casts,Urine 1 /LPF (0-3); Ketones,Urine Negative (Negative); Nitrite,Urine Negative (Negative); Protein,Urine Negative; RBC,Urine 1 /HPF (0-4); Squamous Epithelial Cell,Urine Occasional /HPF (0-10); Urine Color Straw (Yellow); Urine Specific Gravity 1.004 (1.001-1.035); Urine Urobilinogen < 2.0 EU/DL (0.2-1.0); WBC,Urine 4 /HPF (0-6)
[2017-10-10] MEDS: MEROPENEM 1,000 MG in SYRINGE 1 EACH IV SCH ×2 (03:41→16:38)
[2017-10-10] MEDS: SODIUM CHLORIDE 0.9% 1,000 ML IV SCH ×3 (03:48→21:35)
[2017-10-10 07:47] LABS: Albumin 2.9 G/DL (3.4-5.0); Bilirubin,Direct 0.18 MG/DL (0.0-0.20); Bilirubin,Indirect 0.8 MG/DL (0.0-1.0); Total Protein 6.2 G/DL (6.4-8.3)
[2017-10-10] MEDS: INSULIN LISPRO 100 UNIT/ML SUBCUT SCH ×4 (09:27→21:36)
[2017-10-10] MEDS: PANTOPRAZOLE 40 MG TABLET PO SCH ×2 (09:28→09:29)
[2017-10-10] MEDS: BRIMONIDINE 0.15% OPH SOLN 1 DROP/DROPS BOTTLE BOTH EYES SCH ×2 (09:29→21:35)
[2017-10-10] MEDS ORDERED: GLUCAGON 1 MG VIAL IM PRN (17:37)
[2017-10-10] MEDS ORDERED: DEXTROSE 50% 25 GM/50 ML VIAL IV PRN (17:37)
[2017-10-11] MEDS: SODIUM CHLORIDE 0.9% 1,000 ML IV SCH ×5 (03:18→20:52)
[2017-10-11] MEDS: MEROPENEM 1,000 MG in SYRINGE 1 EACH IV SCH ×2 (03:18→14:48)
[2017-10-11 04:00] LABS: Basophils # 0.1 10*3/uL (0.0-0.2); Eosinophils # 0.1 10*3/uL (0.0-0.87); Eosinophils % 2.1 % (0.00-10.9); Hematocrit 34.8 VOL% (35.7-47.0); Hemoglobin 11.4 GM/DL (12.0-16.0); Immature Granulocytes % 0.4 %; Immature Granulocytes Absolute 0.02 #; Lymphocytes # 1.7 10*3/uL (1.4-4.0); Lymphocytes % 32.2 % (21.3-54.2); Mean Corpuscular HGB Conc 32.8 GM/DL (32-36); Mean Corpuscular Hemoglobin 30 PG (27-34); Mean Corpuscular Volume 91.6 FL (87-102); Mean Platelet Volume 11.4 FL (9.6-12.0); Monocytes # 0.9 10*3/uL (0.11-0.8); Monocytes % 17.8 % (1.7-12.7); Neutrophils # 2.4 10*3/uL (1.4-7.4); Neutrophils % 46.5 % (38.7-73.9); Platelet Count 302 T/CUMM (130-400); Red Cell Distribution Width 13.1 % (9.3-17.3); White Blood Count 5.1 T/CUMM (4-12)
[2017-10-11 04:27] LABS: Albumin 2.5 G/DL (3.4-5.0); Albumin 2.6 G/DL (3.4-5.0); Bilirubin,Direct 0.11 MG/DL (0.0-0.20); Bilirubin,Indirect 1.1 MG/DL (0.0-1.0); Bilirubin,Total 0.7 MG/DL (0.2-1.0); Bilirubin,Total 1.2 MG/DL (0.2-1.0); Calcium 8.1 MG/DL (8.5-10.1); Osmolality,Calculated 293.6 MOS/KG (273-304); Potassium 3.6 MMOL/L (3.5-5.1); Total Protein 5.6 G/DL (6.4-8.3)
[2017-10-11 06:48] LABS: Lymphocytes 28 % (20-55); Platelet Estimate Normal; Segmented Neutrophils 62 % (50-85); Total Cells Counted 100
[2017-10-11] MEDS: INSULIN LISPRO 100 UNIT/ML SUBCUT SCH ×4 (08:06→20:53)
[2017-10-11] MEDS: BRIMONIDINE 0.15% OPH SOLN 1 DROP/DROPS BOTTLE BOTH EYES SCH ×2 (09:44→20:52)
[2017-10-11] MEDS: PANTOPRAZOLE 40 MG TABLET PO SCH (09:44)
[2017-10-11] MEDS: LEVOFLOXACIN INJ 500 MG in PREMIX 1 EACH IV SCH (11:31)
[2017-10-12] MEDS: MEROPENEM 1,000 MG in SYRINGE 1 EACH IV SCH ×2 (02:04→15:00)
[2017-10-12] MEDS: SODIUM CHLORIDE 0.9% 1,000 ML IV SCH ×3 (02:11→15:01)
[2017-10-12] MEDS: INSULIN LISPRO 100 UNIT/ML SUBCUT SCH ×4 (08:25→21:22)
[2017-10-12] MEDS: BRIMONIDINE 0.15% OPH SOLN 1 DROP/DROPS BOTTLE BOTH EYES SCH ×2 (10:01→21:23)
[2017-10-12] MEDS: PANTOPRAZOLE 40 MG TABLET PO SCH (10:01)
[2017-10-13] MEDS: SODIUM CHLORIDE 0.9% 1,000 ML IV SCH (01:34)
[2017-10-13] MEDS: MEROPENEM 1,000 MG in SYRINGE 1 EACH IV SCH (02:12)
[2017-10-13 07:08] LABS: Basophils % 0.6 % (0.0-0.8); Eosinophils # 0.2 10*3/uL (0.0-0.87); Eosinophils % 2.4 % (0.00-10.9); Hematocrit 34.8 VOL% (35.7-47.0); Hemoglobin 11.4 GM/DL (12.0-16.0); Immature Granulocytes % 0.5 %; Immature Granulocytes Absolute 0.03 #; Lymphocytes # 1.5 10*3/uL (1.4-4.0); Lymphocytes % 24.1 % (21.3-54.2); Mean Corpuscular HGB Conc 32.8 GM/DL (32-36); Mean Corpuscular Hemoglobin 30 PG (27-34); Mean Corpuscular Volume 90.6 FL (87-102); Mean Platelet Volume 11.4 FL (9.6-12.0); Monocytes # 0.8 10*3/uL (0.11-0.8); Monocytes % 13.3 % (1.7-12.7); Neutrophils # 3.7 10*3/uL (1.4-7.4); Neutrophils % 59.1 % (38.7-73.9); Platelet Count 262 T/CUMM (130-400); Red Blood Count 3.84 MC/CUMM (3.8-5.5); Red Cell Distribution Width 13.1 % (9.3-17.3); White Blood Count 6.2 T/CUMM (4-12)
[2017-10-13] MEDS: INSULIN LISPRO 100 UNIT/ML SUBCUT SCH ×2 (07:09→13:18)
[2017-10-13 07:23] LABS: Calcium 7.9 MG/DL (8.5-10.1); Osmolality,Calculated 291.3 MOS/KG (273-304); Potassium 3.4 MMOL/L (3.5-5.1)
[2017-10-13] MEDS ORDERED: POTASSIUM CHLORIDE 20 MEQ TABLET PO PRN (08:28)
[2017-10-13] MEDS ORDERED: SODIUM CHLORIDE 0.45% 1,000 ML IV SCH (08:30)
[2017-10-13] MEDS ORDERED: hydroCHLOROthiazide 25 MG TABLET PO SCH (09:00)
[2017-10-13] MEDS ORDERED: POTASSIUM CHLORIDE 20 MEQ TABLET PO ONE (09:14)
[2017-10-13] MEDS: PANTOPRAZOLE 40 MG TABLET PO SCH (09:24)
[2017-10-13] MEDS: BRIMONIDINE 0.15% OPH SOLN 1 DROP/DROPS BOTTLE BOTH EYES SCH (09:26)
[2017-10-13] MEDS: LEVOFLOXACIN INJ 500 MG in PREMIX 1 EACH IV SCH (11:05)
[2017-10-13 12:27] VITALS: BP 141/75
[2017-10-13] MEDS: amLODIPine 10 MG TABLET PO SCH (14:22)
== END 2017-10-13 14:15 | disposition home health service (06) | DRG 445 ==
LOC: EDUNIT# → EDBD → N.ED 21:57 → SUATTDRO 10-08 01:19 → N.EDINP 10-08 01:50 → N.5E 10-08 02:14
PROVIDERS: ADMIT Internal Medicine; ATTEND Internal Medicine

== ENCOUNTER 2021-11-10 09:57 | Observation (INO) ==
[2021-11-10 11:24] LABS: Basophils % 0.6 % (0.0-0.8); Eosinophils # 0.1 10*3/uL (0.0-0.87); Eosinophils % 1.6 % (0.00-10.9); Hematocrit 42.3 VOL% (35.7-47.0); Hemoglobin 13.6 GM/DL (12.0-16.0); Immature Granulocytes % 0.2 %; Immature Granulocytes Absolute 0.01 #; Lymphocytes # 1.1 10*3/uL (1.4-4.0); Lymphocytes % 21.7 % (21.3-54.2); Mean Corpuscular HGB Conc 32.2 GM/DL (32-36); Mean Corpuscular Volume 93.6 FL (87-102); Mean Platelet Volume 10.6 FL (9.6-12.0); Monocytes # 0.6 10*3/uL (0.11-0.8); Monocytes % 10.9 % (1.7-12.7); Platelet Count 357 T/CUMM (130-400); Red Blood Count 4.52 MC/CUMM (3.8-5.5); Red Cell Distribution Width 13.6 % (9.3-17.3); White Blood Count 5.1 T/CUMM (4-12)
[2021-11-10 11:47] LABS: Albumin 3.4 G/DL (3.4-5.0); Bilirubin,Total 0.6 MG/DL (0.20-1.00); Calcium 9.8 MG/DL (8.5-10.1); Osmolality,Calculated 277.4 MOS/KG (273-304); Potassium 3.9 MMOL/L (3.5-5.1)
[2021-11-10] MEDS ORDERED: hydrALAZINE 20 MG/1 ML VIAL ONE (12:02)
[2021-11-10] MEDS ORDERED: hydrALAZINE 20 MG/1 ML VIAL IV STA (12:10)
[2021-11-10] MEDS ORDERED: HYDROmorphone 1 MG/1 ML SYRINGE IV STA (12:23)
[2021-11-10] MEDS ORDERED: ONDANSETRON 4 MG/2 ML VIAL IV ONE (12:23)
[2021-11-10] MEDS ORDERED: ACETAMINOPHEN 325 MG TABLET PO PRN (13:35)
[2021-11-10] MEDS ORDERED: GLUCAGON 1 MG VIAL IM PRN (13:35)
[2021-11-10] MEDS ORDERED: DEXTROSE 10% 250 ML BAG IV PRN ×2 (13:42→15:13)
[2021-11-10] MEDS: LACTATED RINGERS 1,000 ML IV SCH (14:50)
[2021-11-10] MEDS: INSULIN LISPRO 100 UNIT/ML SUBCUT SCH (17:23)
[2021-11-10] MEDS: HEPARIN 5,000 UNIT/1 ML VIAL SUBCUT SCH (20:40)
[2021-11-10] MEDS: hydrALAZINE 20 MG/1 ML VIAL IV PRN (20:43)
[2021-11-11] MEDS: LACTATED RINGERS 1,000 ML IV SCH ×3 (01:09→19:18)
[2021-11-11 05:25] LABS: Basophils % 0.7 % (0.0-0.8); Eosinophils # 0.1 10*3/uL (0.0-0.87); Eosinophils % 1.5 % (0.00-10.9); Hematocrit 40.2 VOL% (35.7-47.0); Hemoglobin 12.7 GM/DL (12.0-16.0); Immature Granulocytes % 0.4 %; Immature Granulocytes Absolute 0.02 #; Lymphocytes # 1.3 10*3/uL (1.4-4.0); Lymphocytes % 28.7 % (21.3-54.2); Mean Corpuscular HGB Conc 31.6 GM/DL (32-36); Mean Corpuscular Volume 93.5 FL (87-102); Mean Platelet Volume 10.6 FL (9.6-12.0); Monocytes # 0.6 10*3/uL (0.11-0.8); Monocytes % 13.5 % (1.7-12.7); Neutrophils % 55.2 % (38.7-73.9); Platelet Count 326 T/CUMM (130-400); White Blood Count 4.6 T/CUMM (4-12)
[2021-11-11 05:50] LABS: Calcium 8.8 MG/DL (8.5-10.1); Potassium 3.6 MMOL/L (3.5-5.1); Risk Ratio 3.15; Thyroid Stimulating Hormone 1.16 uIU/ml (0.358-3.74); VLDL Cholesterol 14.4 MG/DL
[2021-11-11] MEDS: INSULIN LISPRO 100 UNIT/ML SUBCUT SCH ×2 (08:05→16:50)
[2021-11-11] MEDS: HEPARIN 5,000 UNIT/1 ML VIAL SUBCUT SCH ×2 (09:45→21:51)
[2021-11-11] MEDS: hydrALAZINE 20 MG/1 ML VIAL IV PRN (09:47)
[2021-11-11] MEDS: KETOROLAC 15 MG/1 ML VIAL IV PRN ×2 (09:49→21:55)
[2021-11-11] MEDS: PANTOPRAZOLE 40 MG TABLET PO SCH (14:00)
[2021-11-12] MEDS: hydrALAZINE 20 MG/1 ML VIAL IV PRN (04:45)
[2021-11-12] MEDS: KETOROLAC 15 MG/1 ML VIAL IV PRN (04:48)
[2021-11-12] MEDS: LACTATED RINGERS 1,000 ML IV SCH ×2 (04:55→13:54)
[2021-11-12 05:36] LABS: Eosinophils # 0.1 10*3/uL (0.0-0.87); Eosinophils % 1.9 % (0.00-10.9); Hematocrit 39.1 VOL% (35.7-47.0); Hemoglobin 12.4 GM/DL (12.0-16.0); Immature Granulocytes % 0.2 %; Immature Granulocytes Absolute 0.01 #; Lymphocytes # 1.6 10*3/uL (1.4-4.0); Lymphocytes % 37.8 % (21.3-54.2); Mean Corpuscular HGB Conc 31.7 GM/DL (32-36); Mean Corpuscular Volume 92.9 FL (87-102); Mean Platelet Volume 10.6 FL (9.6-12.0); Monocytes # 0.6 10*3/uL (0.11-0.8); Monocytes % 13.8 % (1.7-12.7); Neutrophils % 45.3 % (38.7-73.9); Platelet Count 325 T/CUMM (130-400); Red Blood Count 4.21 MC/CUMM (3.8-5.5); White Blood Count 4.2 T/CUMM (4-12)
[2021-11-12 06:06] LABS: Bilirubin,Total 0.6 MG/DL (0.20-1.00); Calcium 9.1 MG/DL (8.5-10.1); Osmolality,Calculated 280.3 MOS/KG (273-304); Potassium 3.5 MMOL/L (3.5-5.1); Total Protein 6.7 G/DL (6.4-8.2)
[2021-11-12] MEDS: INSULIN LISPRO 100 UNIT/ML SUBCUT SCH ×2 (07:56→16:17)
[2021-11-12 08:11] LABS: PT Patient Result 11.4 SECS (10.5-12.0)
[2021-11-12] MEDS: PANTOPRAZOLE 40 MG TABLET PO SCH (08:47)
[2021-11-12] MEDS: HEPARIN 5,000 UNIT/1 ML VIAL SUBCUT SCH ×2 (08:47→21:43)
[2021-11-13] MEDS: LACTATED RINGERS 1,000 ML IV SCH ×3 (00:48→21:09)
[2021-11-13 05:38] LABS: Basophils % 0.4 % (0.0-0.8); Eosinophils # 0.1 10*3/uL (0.0-0.87); Eosinophils % 1.8 % (0.00-10.9); Hematocrit 39.6 VOL% (35.7-47.0); Hemoglobin 12.5 GM/DL (12.0-16.0); Immature Granulocytes % 0.4 %; Immature Granulocytes Absolute 0.02 #; Lymphocytes # 1.7 10*3/uL (1.4-4.0); Lymphocytes % 33.5 % (21.3-54.2); Mean Corpuscular HGB Conc 31.6 GM/DL (32-36); Mean Corpuscular Volume 94.1 FL (87-102); Monocytes # 0.8 10*3/uL (0.11-0.8); Neutrophils % 48.9 % (38.7-73.9); Platelet Count 368 T/CUMM (130-400); Red Blood Count 4.21 MC/CUMM (3.8-5.5); Red Cell Distribution Width 14.2 % (9.3-17.3)
[2021-11-13 05:57] LABS: Bilirubin,Total 0.5 MG/DL (0.20-1.00); Calcium 9.2 MG/DL (8.5-10.1); Osmolality,Calculated 280.3 MOS/KG (273-304); Potassium 3.7 MMOL/L (3.5-5.1); Total Protein 6.7 G/DL (6.4-8.2)
[2021-11-13] MEDS: INSULIN LISPRO 100 UNIT/ML SUBCUT SCH ×2 (08:46→18:21)
[2021-11-13] MEDS: PANTOPRAZOLE 40 MG TABLET PO SCH (08:53)
[2021-11-13] MEDS: amLODIPine 5 MG TABLET PO SCH (08:53)
[2021-11-13] MEDS: METOPROLOL TARTRATE 25 MG TABLET PO SCH ×2 (11:15→21:10)
[2021-11-14 05:11] LABS: Basophils % 0.5 % (0.0-0.8); Eosinophils # 0.1 10*3/uL (0.0-0.87); Hematocrit 42.5 VOL% (35.7-47.0); Hemoglobin 13.3 GM/DL (12.0-16.0); Immature Granulocytes % 0.2 %; Immature Granulocytes Absolute 0.01 #; Lymphocytes # 1.3 10*3/uL (1.4-4.0); Lymphocytes % 28.3 % (21.3-54.2); Mean Corpuscular HGB Conc 31.3 GM/DL (32-36); Mean Corpuscular Volume 93.6 FL (87-102); Mean Platelet Volume 10.7 FL (9.6-12.0); Monocytes # 0.6 10*3/uL (0.11-0.8); Monocytes % 14.3 % (1.7-12.7); Neutrophils % 54.7 % (38.7-73.9); Platelet Count 334 T/CUMM (130-400); Red Blood Count 4.54 MC/CUMM (3.8-5.5); Red Cell Distribution Width 14.1 % (9.3-17.3); White Blood Count 4.4 T/CUMM (4-12)
[2021-11-14 05:34] LABS: Calcium 9.7 MG/DL (8.5-10.1); Osmolality,Calculated 278.4 MOS/KG (273-304); Potassium 3.5 MMOL/L (3.5-5.1)
[2021-11-14 05:44] LABS: Bilirubin,Total 0.4 MG/DL (0.20-1.00); Calcium 9.5 MG/DL (8.5-10.1); Osmolality,Calculated 278.4 MOS/KG (273-304); Potassium 3.5 MMOL/L (3.5-5.1)
[2021-11-14] MEDS ORDERED: MEPERIDINE 50 MG/1 ML VIAL IM ONE (06:30)
[2021-11-14] MEDS ORDERED: PROMETHAZINE 25 MG/1 ML VIAL IM ONE (06:30)
[2021-11-14] MEDS: LACTATED RINGERS 1,000 ML IV SCH ×2 (06:38→08:04)
[2021-11-14] MEDS ORDERED: MIDAZOLAM 10 MG/2 ML VIAL IV ONE (07:00)
[2021-11-14] MEDS ORDERED: LIDOCAINE 1% 20 ML VIAL MISC INJ ONE (07:00)
[2021-11-14] MEDS ORDERED: LIDOCAINE 2% VISCOUS 100 ML BOTTLE SWISH/SPIT ONE (07:00)
[2021-11-14] MEDS ORDERED: LIDOCAINE 2% 20 ML VIAL RESP TX ONE (07:00)
[2021-11-14] MEDS ORDERED: MIDAZOLAM 2 MG/2 ML VIAL ONE (07:01)
[2021-11-14] MEDS: INSULIN LISPRO 100 UNIT/ML SUBCUT SCH (08:28)
[2021-11-14] MEDS: METOPROLOL TARTRATE 25 MG TABLET PO SCH (10:11)
[2021-11-14] MEDS: PANTOPRAZOLE 40 MG TABLET PO SCH (10:11)
[2021-11-14] MEDS ORDERED: amLODIPine 10 MG TABLET PO SCH (10:30)
[2021-11-14] MEDS: amLODIPine 5 MG TABLET PO SCH (10:30)
[2021-11-14 12:46] VITALS: BP 143/62
== END 2021-11-14 15:35 | disposition home or self-care (01) ==
LOC: EDUNIT# → EDBD → N.ED 09:57 → N.TELES 09:57 → SUATTDRO 13:35 → N.TELES 15:15
PROVIDERS: ADMIT Internal Medicine; ATTEND Internal Medicine
PROC: BRONCHB (2021-11-14 07:05)

== ENCOUNTER 2022-01-20 23:27 | Inpatient (IN) ==
[2022-01-20] MEDS ORDERED: SODIUM CHLORIDE 0.9% 1,000 ML IV STA (23:52)
[2022-01-20] MEDS ORDERED: ONDANSETRON 4 MG/2 ML VIAL IV STA (23:52)
[2022-01-21 00:43] LABS: Albumin 3.6 G/DL (3.4-5.0); Calcium 9.5 MG/DL (8.5-10.1); Osmolality,Calculated 284.3 MOS/KG (273-304); Potassium 3.9 MMOL/L (3.5-5.1); Total Protein 7.3 G/DL (6.4-8.2)
[2022-01-21 00:51] LABS: Basophils % 0.5 % (0.0-0.8); Eosinophils % 0.4 % (0.00-10.9); Hematocrit 42.7 VOL% (35.7-47.0); Hemoglobin 13.7 GM/DL (12.0-16.0); Immature Granulocytes % 0.4 %; Immature Granulocytes Absolute 0.02 #; Lymphocytes # 0.5 10*3/uL (1.4-4.0); Lymphocytes % 9.1 % (21.3-54.2); Mean Corpuscular HGB Conc 32.1 GM/DL (32-36); Mean Corpuscular Volume 91.4 FL (87-102); Mean Platelet Volume 10.8 FL (9.6-12.0); Monocytes # 0.5 10*3/uL (0.11-0.8); Monocytes % 9.3 % (1.7-12.7); Neutrophils % 80.3 % (38.7-73.9); Platelet Count 284 T/CUMM (130-400); Red Blood Count 4.67 MC/CUMM (3.8-5.5); Red Cell Distribution Width 15.2 % (9.3-17.3); White Blood Count 5.5 T/CUMM (4-12)
[2022-01-21 01:21] LABS: Mucus,Urine Occasional /LPF (Occasional); RBC,Urine <1 /HPF (0-4); Squamous Epithelial Cell,Urine Occasional /HPF (0-10)
[2022-01-21 01:23] LABS: Urine Appearance Clear (Clear); Urine Color Yellow (Yellow); Urine pH 7.5 (4.5-8.0)
[2022-01-21 01:24] LABS: Bilirubin,Urine Negative (Negative); Blood, Urine Negative (Negative); Glucose,Urine (UA) 100 mg/dL (Negative); Ketones,Urine 15 mg/dL (Negative); Nitrite,Urine Negative (Negative); Protein,Urine Negative (Negative); Urine Urobilinogen >= 8.0 eU/dL (<2.0)
[2022-01-21] MEDS ORDERED: MORPHINE 2 MG/1 ML SYRINGE IV STA (01:43)
[2022-01-21] MEDS ORDERED: PROMETHAZINE INJ 12.5 MG in SODIUM CHLORIDE 0.9% 50 ML IV STA (01:43)
[2022-01-21] MEDS ORDERED: PROMETHAZINE 25 MG/1 ML VIAL ONE (01:44)
[2022-01-21] MEDS ORDERED: MORPHINE 2 MG/1 ML SYRINGE ONE (01:44)
[2022-01-21 01:48] LABS: Platelet Estimate Normal
[2022-01-21] MEDS ORDERED: MORPHINE 2 MG/1 ML SYRINGE IV PRN (02:22)
[2022-01-21] MEDS ORDERED: PROMETHAZINE 25 MG/1 ML VIAL IM PRN (02:22)
[2022-01-21] MEDS ORDERED: GLUCAGON 1 MG VIAL IM PRN (02:22)
[2022-01-21] MEDS ORDERED: ONDANSETRON 4 MG/2 ML VIAL IV PRN (02:22)
[2022-01-21] MEDS ORDERED: DEXTROSE 10% 250 ML BAG IV PRN (02:34)
[2022-01-21] MEDS ORDERED: hydrALAZINE 20 MG/1 ML VIAL IV PRN (03:36)
[2022-01-21] MEDS: LEVOFLOXACIN INJ 500 MG/100 ML PREMIX IV SCH (03:49)
[2022-01-21] MEDS: SODIUM CHLORIDE 0.9% 1,000 ML IV SCH ×2 (03:49→14:53)
[2022-01-21] MEDS: metroNIDAZOLE INJ 500 MG/100 ML PREMIX IV SCH ×3 (06:15→20:45)
[2022-01-21 08:08] LABS: Basophils % 0.2 % (0.0-0.8); Hematocrit 42.8 VOL% (35.7-47.0); Hemoglobin 13.6 GM/DL (12.0-16.0); Immature Granulocytes % 0.4 %; Immature Granulocytes Absolute 0.04 #; Lymphocytes # 0.2 10*3/uL (1.4-4.0); Lymphocytes % 2.5 % (21.3-54.2); Mean Corpuscular HGB Conc 31.8 GM/DL (32-36); Mean Corpuscular Volume 91.6 FL (87-102); Mean Platelet Volume 10.5 FL (9.6-12.0); Monocytes # 0.9 10*3/uL (0.11-0.8); Monocytes % 9.5 % (1.7-12.7); Neutrophils % 87.4 % (38.7-73.9); Platelet Count 261 T/CUMM (130-400); Red Blood Count 4.67 MC/CUMM (3.8-5.5); Red Cell Distribution Width 15.3 % (9.3-17.3); White Blood Count 9.1 T/CUMM (4-12)
[2022-01-21 08:28] LABS: Hypochromia 1+; Lymphocytes 1 % (20-55); Total Cells Counted 100
[2022-01-21 08:29] LABS: Microcytosis Slight; Platelet Estimate Normal
[2022-01-21 08:32] LABS: Albumin 3.3 G/DL (3.4-5.0); Calcium 9.2 MG/DL (8.5-10.1); Osmolality,Calculated 276.8 MOS/KG (273-304); Potassium 3.8 MMOL/L (3.5-5.1); Total Protein 7.8 G/DL (6.4-8.2)
[2022-01-21] MEDS: INSULIN REGULAR 100 UNIT/ML SUBCUT SCH ×4 (09:42→20:55)
[2022-01-21] MEDS: ENOXAPARIN 30 MG/0.3 ML SYRINGE SUBCUT SCH (14:53)
[2022-01-22] MEDS: SODIUM CHLORIDE 0.9% 1,000 ML IV SCH ×2 (02:00→15:17)
[2022-01-22] MEDS: metroNIDAZOLE INJ 500 MG/100 ML PREMIX IV SCH ×3 (04:00→21:10)
[2022-01-22 06:46] LABS: Basophils % 0.2 % (0.0-0.8); Eosinophils % 0.4 % (0.00-10.9); Hematocrit 38.5 VOL% (35.7-47.0); Hemoglobin 12.4 GM/DL (12.0-16.0); Immature Granulocytes % 0.5 %; Immature Granulocytes Absolute 0.03 #; Lymphocytes # 0.4 10*3/uL (1.4-4.0); Lymphocytes % 6.8 % (21.3-54.2); Mean Corpuscular HGB Conc 32.2 GM/DL (32-36); Mean Corpuscular Volume 92.3 FL (87-102); Mean Platelet Volume 10.5 FL (9.6-12.0); Monocytes # 0.8 10*3/uL (0.11-0.8); Neutrophils % 77.1 % (38.7-73.9); Platelet Count 224 T/CUMM (130-400); Red Blood Count 4.17 MC/CUMM (3.8-5.5); Red Cell Distribution Width 15.5 % (9.3-17.3); White Blood Count 5.6 T/CUMM (4-12)
[2022-01-22 06:55] LABS: INR 1.2; PT Patient Result 12.7 SECS (10.1-12.1)
[2022-01-22 07:04] LABS: Albumin 2.8 G/DL (3.4-5.0); Bilirubin,Total 6.5 MG/DL (0.20-1.00); Calcium 9.1 MG/DL (8.5-10.1); Osmolality,Calculated 281.1 MOS/KG (273-304); Potassium 3.2 MMOL/L (3.5-5.1); Total Protein 6.4 G/DL (6.4-8.2)
[2022-01-22] MEDS: INSULIN REGULAR 100 UNIT/ML SUBCUT SCH ×4 (07:26→21:13)
[2022-01-22] MEDS ORDERED: LACTATED RINGERS 1,000 ML IV SCH (08:00)
[2022-01-22] MEDS ORDERED: INDOMETHACIN SUPP 50 MG SUPP RECTAL ONE (08:00)
[2022-01-22] MEDS: LEVOFLOXACIN INJ 500 MG/100 ML PREMIX IV SCH (08:14)
[2022-01-22] MEDS ORDERED: LIDOCAINE 2% 5 ML VIAL ONE (11:41)
[2022-01-22] MEDS ORDERED: propofoL 200 MG/20 ML VIAL IV ONE (11:41)
[2022-01-22] MEDS ORDERED: ROCURONIUM 50 MG/5 ML VIAL IV ONE (11:41)
[2022-01-22] MEDS ORDERED: SUCCINYLCHOLINE 200 MG/10 ML VIAL ONE (11:41)
[2022-01-22] MEDS ORDERED: fentaNYL 100 MCG/2 ML VIAL ONE (11:41)
[2022-01-22] MEDS ORDERED: SEVOFLURANE 1 UNIT/15 MINUTE INH ONE ×4 (11:41→13:20)
[2022-01-22] MEDS ORDERED: ETOMIDATE 20 MG/10 ML VIAL IV ONE (13:20)
[2022-01-22] MEDS ORDERED: ONDANSETRON 4 MG/2 ML VIAL ONE (13:21)
[2022-01-23] MEDS: SODIUM CHLORIDE 0.9% 1,000 ML IV SCH ×3 (01:07→17:39)
[2022-01-23] MEDS: metroNIDAZOLE INJ 500 MG/100 ML PREMIX IV SCH ×2 (05:30→12:18)
[2022-01-23 05:31] LABS: Basophils % 0.4 % (0.0-0.8); Eosinophils # 0.1 10*3/uL (0.0-0.87); Eosinophils % 1.8 % (0.00-10.9); Hematocrit 37.1 VOL% (35.7-47.0); Immature Granulocytes % 0.4 %; Immature Granulocytes Absolute 0.02 #; Lymphocytes # 0.3 10*3/uL (1.4-4.0); Lymphocytes % 6.4 % (21.3-54.2); Mean Corpuscular HGB Conc 32.3 GM/DL (32-36); Mean Corpuscular Volume 91.4 FL (87-102); Mean Platelet Volume 10.5 FL (9.6-12.0); Monocytes # 0.8 10*3/uL (0.11-0.8); Monocytes % 14.8 % (1.7-12.7); Neutrophils % 76.2 % (38.7-73.9); Platelet Count 227 T/CUMM (130-400); Red Blood Count 4.06 MC/CUMM (3.8-5.5); Red Cell Distribution Width 15.3 % (9.3-17.3); White Blood Count 5.1 T/CUMM (4-12)
[2022-01-23 05:52] LABS: Albumin 2.5 G/DL (3.4-5.0); Bilirubin,Total 5.9 MG/DL (0.20-1.00); Calcium 9.2 MG/DL (8.5-10.1); Osmolality,Calculated 281.1 MOS/KG (273-304); Potassium 3.1 MMOL/L (3.5-5.1); Total Protein 6.3 G/DL (6.4-8.2)
[2022-01-23] MEDS ORDERED: POTASSIUM CHLORIDE RIDER 10 MEQ/100 ML PREMIX IV PRN (06:53)
[2022-01-23] MEDS: INSULIN REGULAR 100 UNIT/ML SUBCUT SCH ×4 (07:27→22:29)
[2022-01-23] MEDS ORDERED: INDOCYANINE GREEN 25 MG VIAL IV ONE ×2 (08:13→09:30)
[2022-01-23] MEDS: POTASSIUM CHLORIDE 20 MEQ TABLET PO PRN ×2 (08:30→10:30)
[2022-01-23] MEDS: LEVOFLOXACIN INJ 500 MG/100 ML PREMIX IV SCH (09:37)
[2022-01-24 05:51] LABS: Basophils % 0.3 % (0.0-0.8); Eosinophils % 0.7 % (0.00-10.9); Hematocrit 38.5 VOL% (35.7-47.0); Hemoglobin 12.5 GM/DL (12.0-16.0); Immature Granulocytes % 0.3 %; Immature Granulocytes Absolute 0.02 #; Lymphocytes # 0.4 10*3/uL (1.4-4.0); Lymphocytes % 6.6 % (21.3-54.2); Mean Corpuscular HGB Conc 32.5 GM/DL (32-36); Mean Platelet Volume 10.9 FL (9.6-12.0); Monocytes # 0.7 10*3/uL (0.11-0.8); Monocytes % 11.8 % (1.7-12.7); Neutrophils % 80.3 % (38.7-73.9); Platelet Count 238 T/CUMM (130-400); Red Blood Count 4.23 MC/CUMM (3.8-5.5); Red Cell Distribution Width 15.2 % (9.3-17.3); White Blood Count 5.7 T/CUMM (4-12)
[2022-01-24 06:07] LABS: Albumin 2.5 G/DL (3.4-5.0); Bilirubin,Total 3.3 MG/DL (0.20-1.00); Calcium 8.8 MG/DL (8.5-10.1); Osmolality,Calculated 275.4 MOS/KG (273-304); Potassium 3.5 MMOL/L (3.5-5.1); Total Protein 6.5 G/DL (6.4-8.2)
[2022-01-24] MEDS ORDERED: propofoL 200 MG/20 ML VIAL IV ONE (06:12)
[2022-01-24] MEDS ORDERED: LIDOCAINE 2% 5 ML VIAL ONE (06:12)
[2022-01-24] MEDS ORDERED: ROCURONIUM 50 MG/5 ML VIAL IV ONE (06:12)
[2022-01-24] MEDS ORDERED: fentaNYL 100 MCG/2 ML VIAL ONE ×2 (06:13→07:45)
[2022-01-24] MEDS ORDERED: ONDANSETRON 4 MG/2 ML VIAL ONE (06:13)
[2022-01-24] MEDS ORDERED: LACTATED RINGERS 1,000 ML IV SCH (06:30)
[2022-01-24] MEDS ORDERED: ETOMIDATE 40 MG/20 ML VIAL IV ONE (06:36)
[2022-01-24] MEDS ORDERED: INDOCYANINE GREEN 25 MG VIAL IV ONE (07:00)
[2022-01-24] MEDS ORDERED: PHENYLEPHRINE 1 MG/10 ML SYRINGE IV ONE (07:17)
[2022-01-24] MEDS ORDERED: LIDOCAINE 1%/EPI INJ 20 ML VIAL ONE (07:19)
[2022-01-24] MEDS ORDERED: ESMOLOL 100 MG/10 ML VIAL IV ONE (07:55)
[2022-01-24] MEDS: INSULIN REGULAR 100 UNIT/ML SUBCUT SCH ×4 (08:21→21:00)
[2022-01-24] MEDS ORDERED: LACTATED RINGERS 1,000 ML IV ONE (08:29)
[2022-01-24] MEDS ORDERED: SUGAMMADEX 200 MG/2 ML VIAL IV ONE (08:40)
[2022-01-24] MEDS ORDERED: SEVOFLURANE 1 UNIT/15 MINUTE INH ONE (08:46)
[2022-01-24] MEDS ORDERED: HYDROmorphone 1 MG/1 ML SYRINGE ONE (09:30)
[2022-01-24] MEDS ORDERED: HYDROmorphone 1 MG/1 ML SYRINGE IV PRN (09:31)
[2022-01-24] MEDS ORDERED: ONDANSETRON 4 MG/2 ML VIAL IV PRN (09:31)
[2022-01-24] MEDS: LEVOFLOXACIN INJ 500 MG/100 ML PREMIX IV SCH (10:53)
[2022-01-24] MEDS ORDERED: TISSUE ADHESIVE 1 EACH APPLICATOR TOP ONE (10:59)
[2022-01-24] MEDS: ENOXAPARIN 30 MG/0.3 ML SYRINGE SUBCUT SCH (16:24)
[2022-01-25] MEDS: SODIUM CHLORIDE 0.9% 1,000 ML IV SCH ×3 (01:20→16:39)
[2022-01-25 05:19] LABS: Basophils % 0.3 % (0.0-0.8); Eosinophils % 0.2 % (0.00-10.9); Hematocrit 40.3 VOL% (35.7-47.0); Hemoglobin 12.7 GM/DL (12.0-16.0); Immature Granulocytes % 0.5 %; Immature Granulocytes Absolute 0.03 #; Lymphocytes # 0.4 10*3/uL (1.4-4.0); Lymphocytes % 5.9 % (21.3-54.2); Mean Corpuscular HGB Conc 31.5 GM/DL (32-36); Mean Corpuscular Volume 92.2 FL (87-102); Mean Platelet Volume 10.7 FL (9.6-12.0); Monocytes # 0.9 10*3/uL (0.11-0.8); Monocytes % 14.3 % (1.7-12.7); Neutrophils % 78.8 % (38.7-73.9); Platelet Count 221 T/CUMM (130-400); Red Blood Count 4.37 MC/CUMM (3.8-5.5); Red Cell Distribution Width 15.3 % (9.3-17.3); White Blood Count 6.2 T/CUMM (4-12)
[2022-01-25 05:37] LABS: Albumin 2.4 G/DL (3.4-5.0); Bilirubin,Total 2.3 MG/DL (0.20-1.00); Calcium 8.1 MG/DL (8.5-10.1); Osmolality,Calculated 269.8 MOS/KG (273-304); Potassium 3.1 MMOL/L (3.5-5.1); Total Protein 6.4 G/DL (6.4-8.2)
[2022-01-25] MEDS: INSULIN REGULAR 100 UNIT/ML SUBCUT SCH ×4 (08:41→21:19)
[2022-01-25] MEDS: LEVOFLOXACIN INJ 500 MG/100 ML PREMIX IV SCH (08:41)
[2022-01-25] MEDS: POTASSIUM CHLORIDE 20 MEQ TABLET PO PRN ×4 (08:41→15:19)
[2022-01-25] MEDS: ENOXAPARIN 30 MG/0.3 ML SYRINGE SUBCUT SCH (15:20)
[2022-01-26] MEDS: SODIUM CHLORIDE 0.9% 1,000 ML IV SCH ×3 (04:34→17:27)
[2022-01-26] MEDS: INSULIN REGULAR 100 UNIT/ML SUBCUT SCH ×4 (08:42→21:15)
[2022-01-26] MEDS: LEVOFLOXACIN 500 MG TABLET PO SCH (08:42)
[2022-01-26] MEDS: ENOXAPARIN 30 MG/0.3 ML SYRINGE SUBCUT SCH (16:07)
[2022-01-27] MEDS: SODIUM CHLORIDE 0.9% 1,000 ML IV SCH ×2 (05:30→18:27)
[2022-01-27] MEDS: LEVOFLOXACIN 500 MG TABLET PO SCH (08:40)
[2022-01-27] MEDS: INSULIN REGULAR 100 UNIT/ML SUBCUT SCH ×4 (08:42→21:20)
[2022-01-27] MEDS: ENOXAPARIN 30 MG/0.3 ML SYRINGE SUBCUT SCH (15:54)
[2022-01-28 05:54] LABS: Basophils % 0.3 % (0.0-0.8); Eosinophils # 0.1 10*3/uL (0.0-0.87); Eosinophils % 1.2 % (0.00-10.9); Hematocrit 38.6 VOL% (35.7-47.0); Hemoglobin 12.3 GM/DL (12.0-16.0); Immature Granulocytes % 0.9 %; Immature Granulocytes Absolute 0.06 #; Lymphocytes # 0.9 10*3/uL (1.4-4.0); Lymphocytes % 13.7 % (21.3-54.2); Mean Corpuscular HGB Conc 31.9 GM/DL (32-36); Mean Platelet Volume 10.9 FL (9.6-12.0); Monocytes # 1.1 10*3/uL (0.11-0.8); Monocytes % 17.7 % (1.7-12.7); Neutrophils % 66.2 % (38.7-73.9); Platelet Count 288 T/CUMM (130-400); Red Blood Count 4.15 MC/CUMM (3.8-5.5); Red Cell Distribution Width 15.9 % (9.3-17.3); White Blood Count 6.4 T/CUMM (4-12)
[2022-01-28 06:14] LABS: Calcium 9.1 MG/DL (8.5-10.1); Osmolality,Calculated 274.5 MOS/KG (273-304); Potassium 3.8 MMOL/L (3.5-5.1)
[2022-01-28 06:18] LABS: Band Neutrophils 1 % (0-10); Eosinophils 2 % (0-10); Hypochromia Slight; Lymphocytes 15 % (20-55); Microcytosis Slight; Total Cells Counted 100
[2022-01-28 06:19] LABS: Platelet Estimate Normal
[2022-01-28] MEDS: INSULIN REGULAR 100 UNIT/ML SUBCUT SCH ×4 (07:47→21:20)
[2022-01-28] MEDS: SODIUM CHLORIDE 0.9% 1,000 ML IV SCH (07:50)
[2022-01-28] MEDS: GABAPENTIN 400 MG CAPSULE PO SCH ×2 (15:17→21:20)
[2022-01-28 19:20] LABS: Urine Appearance Clear (Clear); Urine Color Yellow (Yellow)
[2022-01-28 19:21] LABS: Bilirubin,Urine Negative (Negative); Blood, Urine Negative (Negative); Glucose,Urine (UA) Negative (Negative); Ketones,Urine Negative (Negative); Nitrite,Urine Negative (Negative); Protein,Urine Negative (Negative)
[2022-01-28 19:26] LABS: Bacteria,Urine Occasional /HPF (Few); RBC,Urine 2 /HPF (0-4); Squamous Epithelial Cell,Urine Occasional /HPF (0-10)
[2022-01-28] MEDS: ENOXAPARIN 40 MG/0.4 ML SYRINGE SUBCUT SCH (21:20)
[2022-01-29] MEDS: INSULIN REGULAR 100 UNIT/ML SUBCUT SCH ×4 (08:41→21:02)
[2022-01-29] MEDS: amLODIPine 10 MG TABLET PO SCH (08:59)
[2022-01-29] MEDS ORDERED: ALBUTEROL/IPRATROPIUM 3 ML NEB RESP TX PRN (11:41)
[2022-01-29] MEDS: LEVOFLOXACIN 500 MG TABLET PO SCH (13:27)
[2022-01-29] MEDS: GABAPENTIN 400 MG CAPSULE PO SCH ×2 (17:17→21:02)
[2022-01-29] MEDS: ENOXAPARIN 40 MG/0.4 ML SYRINGE SUBCUT SCH (21:02)
[2022-01-30 06:40] LABS: Basophils % 0.4 % (0.0-0.8); Eosinophils # 0.3 10*3/uL (0.0-0.87); Eosinophils % 5.6 % (0.00-10.9); Hematocrit 35.1 VOL% (35.7-47.0); Hemoglobin 10.8 GM/DL (12.0-16.0); Immature Granulocytes % 1.3 %; Immature Granulocytes Absolute 0.07 #; Lymphocytes # 0.7 10*3/uL (1.4-4.0); Lymphocytes % 13.5 % (21.3-54.2); Mean Corpuscular HGB Conc 30.8 GM/DL (32-36); Mean Corpuscular Volume 94.1 FL (87-102); Mean Platelet Volume 10.5 FL (9.6-12.0); Monocytes # 0.9 10*3/uL (0.11-0.8); Monocytes % 16.7 % (1.7-12.7); Neutrophils % 62.5 % (38.7-73.9); Platelet Count 324 T/CUMM (130-400); Red Blood Count 3.73 MC/CUMM (3.8-5.5); Red Cell Distribution Width 16.1 % (9.3-17.3); White Blood Count 5.5 T/CUMM (4-12)
[2022-01-30 07:04] LABS: Eosinophils 7 % (0-10); Hypochromia Slight; Lymphocytes 7 % (20-55); Platelet Estimate Adequate; Total Cells Counted 100
[2022-01-30 07:08] LABS: Calcium 8.5 MG/DL (8.5-10.1); Osmolality,Calculated 277.3 MOS/KG (273-304); Potassium 3.2 MMOL/L (3.5-5.1)
[2022-01-30] MEDS: INSULIN REGULAR 100 UNIT/ML SUBCUT SCH ×2 (08:17→13:02)
[2022-01-30] MEDS: LEVOFLOXACIN 500 MG TABLET PO SCH (08:57)
[2022-01-30] MEDS: amLODIPine 10 MG TABLET PO SCH (08:58)
[2022-01-30] MEDS: POTASSIUM CHLORIDE 20 MEQ TABLET PO PRN (08:58)
[2022-01-30] MEDS ORDERED: POTASSIUM CHLORIDE 20 MEQ TABLET PO ONE (11:00)
[2022-01-30 12:19] VITALS: BP 141/63
== END 2022-01-30 13:02 | disposition swing bed (61) | DRG 417 ==
LOC: EDUNIT# → EDBD → N.ED 23:27 → SUATTDRO 01-21 02:22 → N.5E 01-21 02:22
PROVIDERS: ADMIT Emergency Medicine; ATTEND Internal Medicine
PROC: ERCPWSP (ICD-10-PCS; 2022-01-22 11:05)

== ENCOUNTER 2022-07-15 17:14 | Observation (INO) ==
[2022-07-15] MEDS ORDERED: ASPIRIN 325 MG TABLET PO STA (18:34)
[2022-07-15] MEDS ORDERED: NITROGLYCERIN 2% OINT 1 INCH/GM PACK TOP STA (18:40)
[2022-07-15] MEDS ORDERED: ALUM/MAG/SIMETH/LIDO VISC 1:1 30 ML BOTTLE PO STA (18:40)
[2022-07-15] MEDS ORDERED: PANTOPRAZOLE 40 MG VIAL IV STA (18:40)
[2022-07-15] MEDS ORDERED: MORPHINE 2 MG/1 ML SYRINGE IV STA (18:40)
[2022-07-15] MEDS ORDERED: ONDANSETRON 4 MG/2 ML VIAL IV STA (18:40)
[2022-07-15 18:47] LABS: Basophils % 0.7 % (0.0-0.8); Eosinophils # 0.1 10*3/uL (0.0-0.87); Hematocrit 39.8 VOL% (35.7-47.0); Hemoglobin 12.5 GM/DL (12.0-16.0); Immature Granulocytes % 0.2 %; Immature Granulocytes Absolute 0.01 #; Lymphocytes % 23.2 % (21.3-54.2); Mean Corpuscular HGB Conc 31.4 GM/DL (32-36); Mean Platelet Volume 10.2 FL (9.6-12.0); Monocytes # 0.5 10*3/uL (0.11-0.8); Monocytes % 11.5 % (1.7-12.7); Neutrophils % 61.4 % (38.7-73.9); Platelet Count 268 T/CUMM (130-400); Red Blood Count 4.19 MC/CUMM (3.8-5.5); White Blood Count 4.27 T/CUMM (4-12)
[2022-07-15 19:28] LABS: Albumin 3.3 G/DL (3.4-5.0); Bilirubin,Total 0.4 MG/DL (0.20-1.00); Calcium 9.1 MG/DL (8.5-10.1); Osmolality,Calculated 273.7 MOS/KG (273-304); Potassium 5.1 MMOL/L (3.5-5.1); Total Protein 6.9 G/DL (6.4-8.2)
[2022-07-16] MEDS ORDERED: guaiFENesin/DM ER 600-30 MG TABLET PO PRN (00:02)
[2022-07-16] MEDS ORDERED: NICOTINE 21 MG/24 HR PATCH TRANSDERM PRN (00:02)
[2022-07-16] MEDS ORDERED: PROMETHAZINE 25 MG/1 ML VIAL IM PRN (00:02)
[2022-07-16] MEDS ORDERED: ZALEPLON 5 MG CAPSULE PO PRN (00:02)
[2022-07-16] MEDS ORDERED: ONDANSETRON 4 MG/2 ML VIAL IV PRN (00:02)
[2022-07-16] MEDS ORDERED: MORPHINE 2 MG/1 ML SYRINGE IV PRN (00:02)
[2022-07-16] MEDS ORDERED: hydrALAZINE 20 MG/1 ML VIAL IV PRN (00:02)
[2022-07-16] MEDS ORDERED: ACETAMINOPHEN 325 MG TABLET PO PRN (00:02)
[2022-07-16] MEDS ORDERED: diphenhydrAMINE CAP 25 MG CAPSULE PO PRN (00:02)
[2022-07-16] MEDS: ALBUTEROL/IPRATROPIUM 3 ML NEB RESP TX SCH ×4 (00:48→19:06)
[2022-07-16] MEDS: SODIUM CHLORIDE 0.9% 1,000 ML IV SCH ×2 (01:37→18:52)
[2022-07-16] MEDS: INSULIN LISPRO 100 UNIT/ML SUBCUT SCH ×3 (05:25→18:52)
[2022-07-16 05:55] LABS: Basophils % 0.6 % (0.0-0.8); Eosinophils # 0.1 10*3/uL (0.0-0.87); Eosinophils % 3.2 % (0.00-10.9); Hematocrit 39.2 VOL% (35.7-47.0); Hemoglobin 12.3 GM/DL (12.0-16.0); Immature Granulocytes % 0.3 %; Immature Granulocytes Absolute 0.01 #; Lymphocytes % 32.1 % (21.3-54.2); Mean Corpuscular HGB Conc 31.4 GM/DL (32-36); Mean Corpuscular Volume 96.1 FL (87-102); Mean Platelet Volume 10.3 FL (9.6-12.0); Monocytes # 0.4 10*3/uL (0.11-0.8); Monocytes % 13.8 % (1.7-12.7); Platelet Count 260 T/CUMM (130-400); Red Blood Count 4.08 MC/CUMM (3.8-5.5); Red Cell Distribution Width 13.9 % (9.3-17.3); White Blood Count 3.12 T/CUMM (4-12)
[2022-07-16 06:19] LABS: Calcium 9.2 MG/DL (8.5-10.1); Osmolality,Calculated 280.1 MOS/KG (273-304); Potassium 4.1 MMOL/L (3.5-5.1)
[2022-07-16] MEDS: amLODIPine 10 MG TABLET PO SCH (08:16)
[2022-07-16] MEDS ORDERED: METOPROLOL TARTRATE 25 MG TABLET PO SCH (09:00)
[2022-07-16] MEDS: PANTOPRAZOLE 40 MG VIAL IV SCH (09:46)
[2022-07-16] MEDS: METOPROLOL TARTRATE 25 MG TABLET PO SCH ×2 (15:19→22:06)
[2022-07-16 23:43] LABS: Bilirubin,Urine Negative (Negative); Blood, Urine Negative (Negative); Glucose,Urine (UA) Negative (Negative); Ketones,Urine Negative (Negative); Nitrite,Urine Negative (Negative); Protein,Urine Negative (Negative); Squamous Epithelial Cell,Urine Occasional /HPF (0-10); Urine Appearance CLOUDY (Clear); Urine Color Yellow (Yellow); Urine Specific Gravity 1.023 (1.001-1.035)
[2022-07-17] MEDS: INSULIN LISPRO 100 UNIT/ML SUBCUT SCH ×2 (00:34→07:03)
[2022-07-17] MEDS: SODIUM CHLORIDE 0.9% 1,000 ML IV SCH ×2 (01:14→08:56)
[2022-07-17] MEDS: ALBUTEROL/IPRATROPIUM 3 ML NEB RESP TX SCH ×2 (02:09→06:55)
[2022-07-17 05:26] LABS: Basophils % 0.6 % (0.0-0.8); Eosinophils # 0.1 10*3/uL (0.0-0.87); Eosinophils % 3.9 % (0.00-10.9); Hematocrit 39.8 VOL% (35.7-47.0); Hemoglobin 12.6 GM/DL (12.0-16.0); Immature Granulocytes % 0.3 %; Immature Granulocytes Absolute 0.01 #; Lymphocytes % 29.6 % (21.3-54.2); Mean Corpuscular HGB Conc 31.7 GM/DL (32-36); Mean Corpuscular Volume 93.6 FL (87-102); Mean Platelet Volume 10.9 FL (9.6-12.0); Monocytes # 0.5 10*3/uL (0.11-0.8); Monocytes % 13.6 % (1.7-12.7); Platelet Count 228 T/CUMM (130-400); Red Blood Count 4.25 MC/CUMM (3.8-5.5); Red Cell Distribution Width 13.8 % (9.3-17.3); White Blood Count 3.31 T/CUMM (4-12)
[2022-07-17 06:15] LABS: Osmolality,Calculated 276.5 MOS/KG (273-304); Potassium 4.6 MMOL/L (3.5-5.1)
[2022-07-17] MEDS: METOPROLOL TARTRATE 25 MG TABLET PO SCH (08:40)
[2022-07-17] MEDS: amLODIPine 10 MG TABLET PO SCH (08:40)
[2022-07-17] MEDS: PANTOPRAZOLE 40 MG VIAL IV SCH (08:42)
[2022-07-17] MEDS ORDERED: ASPIRIN EC 81 MG TABLET PO SCH (09:00)
[2022-07-17] MEDS ORDERED: cephALEXin 500 MG CAPSULE PO SCH (09:00)
[2022-07-17 11:11] VITALS: BP 154/71
== END 2022-07-17 12:42 | disposition home health service (06) ==
LOC: N.ED 17:14 → N.2W 17:14
PROVIDERS: ADMIT Internal Medicine; ATTEND Internal Medicine